=== PATIENT | male | born 1970 | race Caucasian/White ===

== ENCOUNTER 2019-05-03 20:00 | Outpatient (CLI) | payer OTHER, SELFPAY | END 2019-05-03 20:01 | disposition home or self-care (01) | LOC: SLEEP 05-04 09:21 | PROVIDERS: Family Provider Internal Medicine; PCP Internal Medicine; Visit Provider Internal Medicine | DX: G47.33 Obstructive sleep apnea (adult) (pediatric) (principal) | CPT/HCPCS: 95810 ==

== ENCOUNTER 2019-06-06 20:00 | Outpatient (CLI) | payer OTHER, SELFPAY | END 2019-06-06 20:01 | disposition home or self-care (01) | LOC: SLEEP 06-07 10:00 | PROVIDERS: Family Provider Internal Medicine; PCP Internal Medicine; Visit Provider Internal Medicine | DX: I48.91 Unspecified atrial fibrillation (principal) | CPT/HCPCS: 95810; 95811 ==

== ENCOUNTER 2019-08-31 07:05 | Day surgery (SDC) | payer OTHER, SELFPAY ==
[2019-08-29 11:06] VITALS: BMI 30.6
[2019-08-31 07:23] VITALS: BP 123/72; PULSE 967; RESP 20; TEMP 36.3; O2SAT 97
[2019-08-31] MEDS: sodium chloride 0.9% 1,000 ML 30 ML IV (07:32)
[2019-08-31 07:39] LABS: Glucose Point of Care 116 mg/dL (70-110)
--- NOTE | 2019-08-31 07:54 | W.PM.OPSFHP ---
Same Day Surgery H&P Indication for Procedure/HPI DATE OF PROCEDURE: August 31, 2019 CHIEF COMPLAINT/INDICATIONFOR SURGICAL PROCEDURE: History of colon polyps PREOP DIAGNOSIS: Colon polyps PLANNED PROCEDRUE: Operation Date: 08/31/19 08:40 Proposed Procedures p Colonoscopy 10735 Z86.010(Not Applicable) - Eder Nicole MD Medications/Allergies* Home Medications Medication Instructions Recorded Confirmed Type aspirin 81 mg tablet,delayed 81 mg PO DAILY 06/30/19 08/29/19 History release glipizide 5 mg tablet 5 mg PO BID 06/30/19 08/29/19 History metformin 1,000 mg tablet 1,000 mg PO BID 06/30/19 08/31/19 History metoprolol tartrate 50 mg tablet 25 mg PO BID tab 06/30/19 08/31/19 History coenzyme Q10 60 mg PO DAILY 08/29/19 08/29/19 History testosterone [AndroGel] 1 packet TRANSDERMAL DAILY 08/29/19 08/29/19 History Allergies/Adverse Reactions Allergy/AdvReac Type Severity Reaction Status Date / Time atorvastatin [From Lipitor] AdvReac ADR-Cramping Verified 08/29/19 10:52 of the Muscles gemfibrozil [From Lopid] AdvReac ADR-Cramping Verified 08/29/19 10:52 of the Muscles Current Medications: Generic Name Dose Route Start Last Admin Trade Name Freq PRN Reason Stop Dose Admin Sodium Chloride 1,000 mls @ 30 mls/hr 08/31/19 07:30 08/31/19 07:32 Sodium Chloride 0.9% IV 09/01/19 07:29 30 mls/hr .Q24H AMELIA Administration Pertinent History/Comorbid Conditions* Medical History (Updated 07/12/19 @ 07:12 by Eder Nicole MD) Anxiety Atrial flutter by electrocardiography Diabetes History of colon polyps Hyperlipidemia Sleep apnea Surgical History (Updated 07/11/19 @ 13:30 by Eder Nicole MD) H/O knee surgery History of ankle surgery History of colonoscopy with polypectomy Family History (Updated 06/30/19 @ 09:27 by Deanna Peres RN) Family history of CABG Diabetes CAD (coronary artery disease) Heart disease Cancer Social History Smoking and tobacco status: former smoker Alcohol intake: never Pertinent Exam Findings alert, oriented x 3 and procedure specific exam findings Recommendations Surgery/Procedure today Coding Level of Care Code Acute Wildlife Rehabilitator for Antione Morgan
--- NOTE | 2019-08-31 08:06 | ANES.PREANE2 ---
Pre-Anesthetic Assessment Pre-Anesthetic Assessment: Height/Weight: Height 1.91 m Weight 111.13 kg Temp Pulse Resp BP Pulse Ox 97.3 F L 967 H 20 H 123/72 97 08/31/19 07:23 08/31/19 07:23 08/31/19 07:23 08/31/19 07:23 08/31/19 07:23 Preop Diagnosis: Colon polyps Proposed Procedure: Operation Date: 08/31/19 08:40 Proposed Procedures p Colonoscopy 51497 Z86.010(Not Applicable) - Eder Nicole MD Was Beta Lowell taken within 24 hours: Yes Last intake: Intake Last Liquid Date 08/30/19 Last Liquid Time 23:30 Last Solid Date 08/29/19 Last Solid Time 23:59 Social: Social History: Alcohol and No tobacco Packs per day: quit Exam: Pre-Anes Outpt Exam: alert, oriented x 3, clear to auscultation bilaterally and regular rate & rhythm Airway: Submandibular: WNL Cervical ROM: WNL MP: 2 History/ROS: No significant history except as noted CV/HEM: Comments: A. flutter Metabolic: Metabolic: DM Neuropsych: Neuropsych: Anxiety Anesthetic Plan: ASA status: 2 Anesthesia: Anesthesia Evaluation and MAC Risk of > 500 ml blood loss (7ml/kg in children): No Meds/Allergies Current Medications: Current Medications Generic Name Dose Route Start Last Admin Trade Name Freq PRN Reason Stop Dose Admin Sodium Chloride 1,000 mls @ 30 ml s/hr 08/31/19 07:30 08/31/19 07:32 Sodium Chloride 0.9% IV 09/01/19 07:29 30 mls/hr .Q24H AMELIA Administration PFSH Anesthesia PFSH: Social History Smoking and tobacco status: former smoker Alcohol intake: never Data Anesthesia Other Labs: Laboratory Results - last 48 hr 08/31/19 07:35 POC Glucose 116 Cardiac Studies: No Data to Display
[2019-08-31 09:59] VITALS: BP 89/55; PULSE 64; RESP 16; TEMP 36.1; O2SAT 96
[2019-08-31 10:15] VITALS: BP 131/76; PULSE 66; RESP 20; O2SAT 98
== END 2019-08-31 10:36 | disposition home or self-care (01) ==
PROVIDERS: Family Provider Internal Medicine; PCP Internal Medicine; Visit Provider Surgery
PROC: 0DJD8ZZ Inspection of Lower Intestinal Tract, Via Natural or Artificial Opening Endoscopic (ICD-10-PCS; CPT 45378; principal; 2019-08-31 08:35)
DX: D12.2 Benign neoplasm of ascending colon (principal); D12.5 Benign neoplasm of sigmoid colon; K57.30 Diverticulosis of large intestine without perforation or abscess without bleeding; Z86.010 Personal history of colon polyps; E11.9 Type 2 diabetes mellitus without complications; E78.5 Hyperlipidemia, unspecified; G47.30 Sleep apnea, unspecified; Z82.49 Family history of ischemic heart disease and other diseases of the circulatory system
CPT/HCPCS: 45380; 12345; 36416; 82962; 88305; J2001; J2704; J7030

== ENCOUNTER 2020-05-17 19:49 | Observation (INO) | payer OTHER, SELFPAY ==
[2020-05-17] VITALS (9 sets, daily range): BP systolic 113–159; BP diastolic 65–100; PULSE 84–110; RESP 16–18; TEMP 36.4; O2SAT 95–98; BMI 31.2
--- NOTE | 2020-05-17 20:10 | XRR_ITS ---
PROCEDURE INFORMATION: Exam: XR Chest, 1 View Exam date and time: 05/17/2020 8:13 PM Age: 50 years old Clinical indication: Tachypnea; Patient HX: Tachycardic. Covid +; Additional info: Covid + TECHNIQUE: Imaging protocol: XR of the chest Views: 1 view. COMPARISON: CR Chest 1 [place] [id number] 04/07/2019 5:42 PM FINDINGS: Lungs: Unremarkable. No consolidation. Pleural space: Unremarkable. No pleural effusion. No pneumothorax. Heart/Mediastinum: Unremarkable. No cardiomegaly. Bones/joints: Unremarkable. XR/XR chest 1V portable [id number] IMPRESSION: No acute findings.
--- NOTE | 2020-05-17 20:11 | ECG_ITS ---
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
[2020-05-17 20:23] LABS: Basophils % 0.9 %; Eosinophils # 0.1 10^3/uL (0.0-0.8); Eosinophils % 2.7 %; Hematocrit 47.3 % (42.0-52.0); Hemoglobin 15.2 g/dL (11.7-16.6); Lymphocytes # 2.1 10^3/uL (0.8-4.8); Lymphocytes % 46.8 %; Mean Corpuscular HGB Conc 32.1 g/dL (30.0-36.0); Mean Corpuscular Hemoglobin 29.3 pg (28.0-34.0); Mean Corpuscular Volume 91.1 fL (80-94); Mean Platelet Volume 11.1 fL (7.4-10.4); Monocytes # 0.5 10^3/uL (0.2-0.9); Monocytes % 10.9 %; Neutrophils # 1.74 10^3/uL (1.8-7.7); Neutrophils % 38.7 %; Nucleated Red Blood Cells % 0 %; Platelet Count 231 10^3/cmm (130-400); Red Blood Count 5.19 10^6/uL (4.1-5.3); Red Cell Distribution Width 12.5 % (12.1-15.1); White Blood Count 4.5 10^3/uL (4.0-10.0)
[2020-05-17 20:44] LABS: Alanine Aminotransferase 48 U/L (0-41); Albumin Level 4.8 g/dL (3.5-5.2); Alkaline Phosphatase 65 IU/L (40-130); Anion Gap 15.9 (5-19); Aspartate Amino Transferase 27 U/L (0-40); Blood Urea Nitrogen 15 mg/dL (6-20); Calcium 9.6 mg/dL (8.5-10.5); Carbon Dioxide 29 mmol/L (22-29); Chloride 100 mmol/L (98-107); Glomerular Filtration Rate 70.3 mL/min (90-130); Glucose 134 mg/dL (65-115); Osmolality Calculated 295 mOsm/kg (285-295); Potassium 3.9 mmol/L (3.5-5.1); Sodium 141 mmol/L (136-145); Total Bilirubin 0.5 mg/dL (0.15-1.2); Total Protein 7.8 g/dL (6.6-8.7)
[2020-05-17 20:46] LABS: Troponin(5th) Baseline 6 ng/L (0-15)
[2020-05-17 21:03] LABS: Influenza A by IFA Negative (Negative); Influenza B by IFA Negative (Negative)
[2020-05-17 21:04] LABS: D Dimer <= 0.27 ug/mIFEU (0-0.59)
[2020-05-17 21:17] LABS: Thyroid Stimulating Hormone 4.97 uIU/mL (0.27-4.20)
--- NOTE | 2020-05-17 22:11 | ECG_ITS ---
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
--- NOTE | 2020-05-17 22:48 | P.HP_ITS ---
Providers/Chief Complaint Primary Care Provider: Jhoana Dunn MD Chief Complaint: covid+/afib History of Present Illness Scar Cardoso is a 50 year old male who was seen by Dr. Raymond for preop clearance before plantar fasciitis treatment he was started on aspirin because of his Bal vas score of 1 for paroxysmal atrial flutter, his metoprolol dose was increased to 50 mg in the morning and 25 mg in the night, he was also started on magnesium supplementation presented today with chief complaint of palpitations. Patient is stating that he was tested positive for COVID-19 pneumonia today. Patient is stating that he got sick on Wednesday, he was hurting mainly in his muscle and joints, he started using ivermectin topically which see med to improved his symptoms from 24 hours, today when he went to bathroom he started feeling palpitations, he also started having diarrhea today because of these concerns she decided to come to the hospital for further evaluation. He is denying orthopnea PND fever nausea, vomiting. Diagnostics in the ER revealed normal hemodynamics, abnormal TSH, negative D- dimer, atrial fibrillation RVR currently on Cardizem drip at 12 mg/h heart rate fluctuating between 80-1 10 We will check magnesium level Patient refused monoclonal antibodies which were recommended to him Review of Systems Const: Reports: body aches, fatigue and malaise; Denies: fever(s) or chills Eyes: Denies: change in vision ENMT: Denies: throat pain Card: Denies: chest pain Resp: Denies: dyspnea GI: Reports: diarrhea : Reports: flank pain Musc: Denies: neck pain Skin/Breast: Denies: rash Neuro: Denies: headache(s) Psych: Denies: anxiety Endo: Denies: polyuria Miles/Lymph: Denies: easy bruising All/Imm: Denies: urticaria Medications/Allergies Home Medications Medication Instructions Recorded Confirmed Last Taken Type glipizide 5 mg tablet 5 mg PO BID@0800,199906/30/19 05/17/20 05/17/20 History metformin 1,000 mg tablet 1,000 mg PO BID@0800,199906/30/19 05/17/20 05/17/20 History coenzyme Q10 60 mg PO DAILY@0800 08/29/19 05/17/20 05/17/20 History rosuvastatin 0.5 tab PO DAILY@0800 02/08/20 05/17/20 05/17/20 History aspirin [Aspir-81] 81 mg PO DAILY@0800 05/17/20 05/17/20 05/17/20 History metoprolol tartrate 25 mg PO BID@0800,199905/17/20 05/17/20 05/17/20 History Allergies Allergy/AdvReac Type Severity Reaction Status Date / Time atorvastatin [From Lipitor] AdvReac ADR-Cramping Verified 02/08/20 09:02 of the Muscles gemfibrozil [From Lopid] AdvReac ADR-Cramping Verified 02/08/20 09:02 of the Muscles PFSH Acute PFSH: Medical History Anxiety Atrial flutter by electrocardiography Diabetes History of colon polyps Hyperlipidemia Plantar fasciitis Sleep apnea CPAP settings 8 to 14 cm Surgical History H/O knee surgery History of ankle surgery History of colonoscopy with polypectomy (08/31/19) sigmoid , ascending colon polyps, tubular adenoma with low-grade dysplasia Family History Other CAD (coronary artery disease) Cancer Diabetes Family history of CABG Heart disease Social History Smoking and tobacco status: former smoker Alcohol intake: never Vitals/I&O/Wt Last Vital Signs Temp 97.6 F 05/17/20 20:07 Pulse 99 05/17/20 21:34 Resp 18 05/17/20 21:34 BP 140/79 05/17/20 21:34 Pulse Ox 96 05/17/20 21:34 05/17/20 05/17/20 05/17/20 06:59 14:59 22:59 Intake Total 0.75 / 0.75 Balance 0.75 / 0.75 Weight last 48 hrs Weight 113.398 kg Physical Exam Narrative: EXAM NARRATIVE: Middle-age male who is sitting comfortably in his bed saturating well on room air S1, S2 variable, no murmur appreciated Patient is symptom-free, does not look dehydrated or fluid overloaded Skin tattoos noted Abdomen soft nontender bowel sounds present Lower extremity no edema gangrene ulcer Neurologically nonfocal exam GCS 15 alert oriented x3 EOMI, PERRLA Bilateral breath sounds without adventitial rhonchi or crackles No skin edema gangrene ulcer Saturating well on room air no acute respite distress Data : 05/17/20 20:06 05/17/20 20:06 A&P Assessment and plan (1) Paroxysmal atrial fibrillation with rapid ventricular response: Status: Acute (2) Pneumonia due to COVID-19 virus: Status: Acute Additional A&P Information Paroxysmal A. fib RVR [id number] 1 for diabetes Patient is willing to start Eliquis, we had discussion regarding recommendations and when Eliquis is indicated, he does not want to take a chance and wants to start his Eliquis which he was taking previously as well Abnormal TSH noted, would request free T4 level, check magnesium level Negative D-dimer PE less likely at this point, influenza antigen negative Currently on Cardizem drip at 12 mg/h I would increase his metoprolol to 50 mg twice a day at home he was taking 25 mg twice a day, patient is stating that his heart rate dropped to 50s after taking 50 mg of metoprolol in the past, will m onitor on telemetry floor COVID-19 pneumonia Patient actively has no symptoms he is saturating well, patient refused monoclonal antibodies which were recommended to him in the ER, I would hold off on Decadron and remdesivir for now Patient is very skeptical regarding COVID-19 recommended medications No acute respiratory distress X-ray is not showing any acute pathology Sleep apnea: Continue CPAP overnight Full code Cardiac diet DVT prophylaxis not needed, I would start Eliquis Attestations Medical Necessity Statement*: I do suspect patient will be discharged in less than 48 hours continued Cardizem drip for A. fib RVR saturating well for COVID- 19 pneumonia Time Spent in Patient Care: (>than 50% of time spent in counselling and/or direct pt care on unit) . 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
--- NOTE | 2020-05-17 23:03 | PC.NURSE ---
EKG done at 2255 and shown to ER doctor
[2020-05-17 23:06] LABS: Troponin 5 2HR Delta 0 ABS# (0-10)
[2020-05-17 23:31] LABS: Free T4 Free Thyroxine 1.45 ng/dL (0.82-1.77)
[2020-05-17] MEDS: metoprolol tartrate 25 mg Tablet PO (23:39)
--- NOTE | 2020-05-17 23:47 | W.ED.ARRPALP ---
HPI - Arrhythmia/Palpitations General: Chief Complaint: Arrhythmia/Palpitations Stated Complaint: covid+/afib Time Seen by Provider: 05/17/20 20:07 Source: patient Mode of arrival: ambulatory Limitations: no limitations History of Present Illness: HPI narrative: Patient is a 50-year-old male with a prior history of atrial fibrillation who is currently taking aspirin and metoprolol for this. He started feeling unwell 5 days ago and he got tested for Covid 3 days ago. His test results came back today and he tested positive for Covid 19. He was ill on the first 2 days with severe body aches, chills but no fever, however his symptoms have markedly improved. Today he went to use the restroom and when he sat down he felt palpitations and his heart racing. Because of this he is here to be evaluated. He feels much better on the Covid front but he is concerned about his heart. complaint: rapid heart beat, heart racing and palpitations Onset (ago): hour(s) (1) Duration: constant Severity: moderate Context: other (occured while using the rest room) Arrhythmia history: atrial fibrillation Associated symptoms: Deny anxiety, cough, diaphoresis, muscle cramps, nausea, paresthesias, pre-syncope, sense of impending doom, short of breath, syncope or vomiting Treatments prior to arrival: beta-ramona Review of Systems General: Reports: 10 or more systems reviewed and unremarkable except in HPI and below Const: Denies: diaphoresis Eyes: Denies: change in vision or blurry vision ENMT: Denies: throat pain, enlarged tonsils, odynophagia, hoarseness, mouth pain or swelling of lips/tongue Card: Denies: syncope or pre-syncope Resp: Denies: dyspnea, productive cough or non-productive cough GI: Denies: nausea or vomiting : Denies: flank pain, dysuria, urinary frequency, urinary urgency or urinary hesitancy Musc: Denies: muscle cramps Skin/Breast: Denies: rash, pruritus or erythema Neuro: Denies: headache(s), numbness in extremities or weakness in extremities Psych: Denies: anxiety Endo: Denies: polyuria, polydipsia or tired all the time [facility] ED PFSH: Medical History Anxiety Atrial flutter by electrocardiography Diabetes History of colon polyps Hyperlipidemia Plantar fasciitis Sleep apnea CPAP settings 8 to 14 cm Surgical History H/O knee surgery History of ankle surgery History of colonoscopy with polypectomy (08/31/19) sigmoid , ascending colon polyps, tubular adenoma with low-grade dysplasia [place] History [place]Reviewed 05/17/20 @ 23:53 [place] [facility] [place] Other CAD (coronary artery disease) Cancer Diabetes Family history of CABG Heart disease Social History (Reviewed 05/17/20 @ 23:53 [place] [facility] [place] Smoking and tobacco status: former smoker Alcohol intake: never Physical Exam Const: COMMON NORMALS: no acute distress, average body habitus, patient oriented x3, no limitations, healthy appearing, alert and well nourished HENMT: COMMON NORMALS: normocephalic, atraumatic and moist oral mucous membranes HEAD & SCALP: normocephalic and atraumatic Neck/C-Spine: COMMON NORMALS: no meningeal signs and no JVD Chest: COMMONS NORMALS: normal inspection of the chest and normal palpation of entire chest wall Resp: COMMON NORMALS: normal respiratory effort, No retractions, No use of accessory muscles, clear to auscultation bilaterally and percussion normal AUSCULTATION: clear to auscultation bilaterally PERCUSSION: percussion normal Cardio: COMMON NORMALS: no JVD, S1 normal heart sound present, S2 normal heart sound present, No gallops present (Cardio), No clicks present (Cardio), No murmurs present (Cardio), No rub (Cardio) and Peripheral pulses 2+ throughout RATE: tachycardic RHYTHM: abnormal rhythm irregularly irregular HEART SOUNDS: S1 normal heart sound present and S2 normal heart sound present PERIPHERAL PULSES: Peripheral pulses 2+ throughout GI: COMMON NORMALS: Normal to inspection, nondistended, normoactive bowel sounds present, Soft to palpation, non-tender, No hepatosplenomegaly present, no masses and no bruits PALPATION: Yes Soft to palpation and Yes No hepatosplenomegaly present Extremity: COMMON NORMALS: normal to inspection, full ROM, capillary refill normal, no calf tenderness and no pedal edema Neuro: COMMON NORMALS: patient oriented x3 SENSORIUM/ORIENTATION: Yes alert MENINGEAL SIGNS: Yes no meningeal signs Skin: COMMON NORMALS: no rashes or lesions noted, no wounds, turgor normal, no jaundice, no petechiae and no mottling GENERAL SKIN EXAM: no rashes or lesions noted and turgor normal Course Consultations: Consultation #1: Discussed the patient with Dr., Hospitalist and he kindly accepted the patient to his service. Time: 22:41 Vital Signs: Vital signs: Vital Signs Temperature 97.6 F 05/17/20 20:07 Pulse Rate 84 05/17/20 23:36 Respiratory Rate 18 05/17/20 23:36 Blood Pressure 122/71 05/17/20 23:36 Pulse Oximetry 96 05/17/20 23:36 MDM - Arrhythmia/Palpitations MDM Narrative: Medical decision making narrative: 50-year-old male with a prior history of A. fib who presents to the emergency department with palpitations and sensation that his heart was racing. In the emergency department he was in A. fib with RVR and required intravenous calcium channel blockers for rate control. However the push doses did not work that he needed to be put on a diltiazem drip. He has been feeling unwell for about 5 days and got tested for COVID-19 about 3 days ago. His test results came up today and he has COVID-19. He denies any body aches, cough, shortness of breath today. He is only concerned about his heart. I discussed the monoclonal antibody infusion with him as he meets the criteria, however he declined the medication as he says that he feels much better from the COVID stand point. He is requiring a continuous infusion of diltiazem and so is admitted to the [facility] for evaluation and management. Medical Records: Attestation: I reviewed the patient's medical records. Lab Data: Attestation: I reviewed the patient's lab results. Labs: Lab Results 05/17/20 05/17/20 05/17/20 Range/Units 20:06 20:06 20:06 WBC 4.5 (4.0-10.0) 10^3/ uL RBC 5.19 (4.1-5.3) 10^6/u L Hgb 15.2 (11.7-16.6) g/dL Hct 47.3 (42.0-52.0) % MCV 91.1 (80-94) fL MCH 29.3 (28.0-34.0) pg MCHC 32.1 (30.0-36.0) g/dL RDW 12.5 (12.1-15.1) % Plt Count 231 (130-400) 10^3/c mm MPV 11.1 H (7.4-10.4) fL Neut % (Auto) 38.7 % Lymph % (Auto) 46.8 % Converse % (Auto) 10.9 % Eos % (Auto) 2.7 % Baso % (Auto) 0.9 % Neut # (Auto) 1.74 L (1.8-7.7) 10^3/u L Lymph # (Auto) 2.1 (0.8-4.8) 10^3/u L Converse # (Auto) 0.5 (0.2-0.9) 10^3/u L Eos # (Auto) 0.1 (0.0-0.8) 10^3/u L Baso # (Auto) 0.0 (0.0-0.1) 10^3/u L Nucleated RBC % (a uto) 0 % Nucleated RBCs # 0.0 /100WBC D-Dimer <= 0.27 (0-0.59) ug/mIFE U Sodium 141 (136-145) mmol/L Potassium 3.9 (3.5-5.1) mmol/L Chloride 100 (98-107) mmol/L Carbon Dioxide 29 (22-29) mmol/L Anion Gap 15.9 (5-19) BUN 15 (6-20) mg/dL Creatinine 1.1 (0.7-1.2) mg/dL GFR Calculation 70.3 L (90-130) mL/min Glucose 134 H (65-115) mg/dL Calculated Osmolal ity 295 (285-295) mOsm/k g Calcium 9.6 (8.5-10.5) mg/dL Total Bilirubin 0.5 (0.15-1.2) mg/dL AST 27 (0-40) U/L ALT 48 H (0-41) U/L Alkaline Phosphata se 65 (40-130) IU/L Troponin T Baselin e (0-15) ng/L Troponin T 120 Min praful (0-15) ng/L Delta Troponin T (0-10) ABS# Total Protein 7.8 (6.6-8.7) g/dL Albumin 4.8 (3.5-5.2) g/dL Globulin 3.0 (1.3-4.6) g/dL TSH (0.27-4.20) uIU/ mL Free T4 (0.82-1.77) ng/d L Influenza Type A A g (Negative) Influenza Type B A g (Negative) 05/17/20 05/17/20 05/17/20 Range/Units 20:06 20:06 20:06 WBC (4.0-10.0) 10^3/ uL RBC (4.1-5.3) 10^6/u L Hgb (11.7-16.6) g/dL Hct (42.0-52.0) % MCV (80-94) fL MCH (28.0-34.0) pg MCHC (30.0-36.0) g/dL RDW (12.1-15.1) % Plt Count (130-400) 10^3/c mm MPV (7.4-10.4) fL Neut % (Auto) % Lymph % (Auto) % Converse % (Auto) % Eos % (Auto) % Baso % (Auto) % Neut # (Auto) (1.8-7.7) 10^3/u L Lymph # (Auto) (0.8-4.8) 10^3/u L Converse # (Auto) (0.2-0.9) 10^3/u L Eos # (Auto) (0.0-0.8) 10^3/u L Baso # (Auto) (0.0-0.1) 10^3/u L Nucleated RBC % (a uto) % Nucleated RBCs # /100WBC D-Dimer (0-0.59) ug/mIFE U Sodium (136-145) mmol/L Potassium (3.5-5.1) mmol/L Chloride (98-107) mmol/L Carbon Dioxide (22-29) mmol/L Anion Gap (5-19) BUN (6-20) mg/dL Creatinine (0.7-1.2) mg/dL GFR Calculation (90-130) mL/min Glucose (65-115) mg/dL Calculated Osmolal ity (285-295) mOsm/k g Calcium (8.5-10.5) mg/dL Total Bilirubin (0.15-1.2) mg/dL AST (0-40) U/L ALT (0-41) U/L Alkaline Phosphata se (40-130) IU/L Troponin T Baselin e 6 (0-15) ng/L Troponin T 120 Min praful (0-15) ng/L Delta Troponin T (0-10) ABS# Total Protein (6.6-8.7) g/dL Albumin (3.5-5.2) g/dL Globulin (1.3-4.6) g/dL TSH 4.97 H (0.27-4.20) uIU/ mL Free T4 1.45 (0.82-1.77) ng/d L Influenza Type A A g (Negative) Influenza Type B A g (Negative) 05/17/20 05/17/20 Range/Units 20:32 22:33 WBC (4.0-10.0) 10^3/ uL RBC (4.1-5.3) 10^6/u L Hgb (11.7-16.6) g/dL Hct (42.0-52.0) % MCV (80-94) fL MCH (28.0-34.0) pg MCHC (30.0-36.0) g/dL RDW (12.1-15.1) % Plt Count (130-400) 10^3/c mm MPV (7.4-10.4) fL Neut % (Auto) % Lymph % (Auto) % Converse % (Auto) % Eos % (Auto) % Baso % (Auto) % Neut # (Auto) (1.8-7.7) 10^3/u L Lymph # (Auto) (0.8-4.8) 10^3/u L Converse # (Auto) (0.2-0.9) 10^3/u L Eos # (Auto) (0.0-0.8) 10^3/u L Baso # (Auto) (0.0-0.1) 10^3/u L Nucleated RBC % (a uto) % Nucleated RBCs # /100WBC D-Dimer (0-0.59) ug/mIFE U Sodium (136-145) mmol/L Potassium (3.5-5.1) mmol/L Chloride (98-107) mmol/L Carbon Dioxide (22-29) mmol/L Anion Gap (5-19) BUN (6-20) mg/dL Creatinine (0.7-1.2) mg/dL GFR Calculation (90-130) mL/min Glucose (65-115) mg/dL Calculated Osmolal ity (285-295) mOsm/k g Calcium (8.5-10.5) mg/dL Total Bilirubin (0.15-1.2) mg/dL AST (0-40) U/L ALT (0-41) U/L Alkaline Phosphata se (40-130) IU/L Troponin T Baselin e (0-15) ng/L Troponin T 120 Min praful 6.00 (0-15) ng/L Delta Troponin T 0 (0-10) ABS# Total Protein (6.6-8.7) g/dL Albumin (3.5-5.2) g/dL Globulin (1.3-4.6) g/dL TSH (0.27-4.20) uIU/ mL Free T4 (0.82-1.77) ng/d L Influenza Type A A g Negative (Negative) Influenza Type B A g Negative (Negative) Imaging Data^: CXR: Attestation: I personally reviewed and interpreted this imaging study as follows: Radiologist's impression: [address] [address] XRay Report Signed Patient: Scar Cardoso #: [id number] : 1970Acct#:[id number] Age/Sex: 50 / MADM Date: 05/17/20 Loc: ERRoom/Bed: Attending Dr: Ordering Provider/Ordering MD: Poly Byrd Date of Service: 05/17/20 Procedure(s): XR chest 1V portable [id number] Accession Number(s): [id number] Report Number: [id number] PROCEDURE INFORMATION: Exam: XR Chest, 1 View Exam date and time: 05/17/2020 8:13 PM Age: 50 years old Clinical indication: Tachypnea; Patient HX: Tachycardic. Covid +; Additional info: Covid + TECHNIQUE: Imaging protocol: XR of the chest Views: 1 view. COMPARISON: CR Chest 1 [place] [id number] 04/07/2019 5:42 PM FINDINGS: Lungs: Unremarkable. No consolidation. Pleural space: Unremarkable. No pleural effusion. No pneumothorax. Heart/Mediastinum: Unremarkable. No cardiomegaly. Bones/joints: Unremarkable. XR/XR chest 1V portable [id number] IMPRESSION: No acute findings. Dictated By:Aurelio Rocha MD Signed By:Aurelio Rocha MDSigned Date/Time:05/17/202043 DD/ 42 EKG Data^: EKG 1: Attestation: I personally reviewed and interpreted this EKG as follows: EKG interpretation date: 05/17/20 EKG interpretation time: 20:01 Prior EKG tracings: not available for review Interpretation: afib with RVR HR 127 BPM Q wave in II, III, aVF and V5, V6. Other EKG comments: Chest X-Ray 05/17/20 20:10 IMPRESSION: No acute findings. EKG 2: Attestation: I personally reviewed and interpreted this EKG as follows: EKG interpretation date: 05/17/20 EKG interpretation time: 20:30 Prior EKG tracings: available for review Interpretation: afib HR 96 BPM Q wave II, III, aVF and V5, V6. This is post IV diltiazem 20 mg push Other EKG comments: Chest X-Ray 05/17/20 20:10 IMPRESSION: No acute findings. EKG 3: Attestation: I personally reviewed and interpreted this EKG as follows: EKG interpretation date: 05/17/20 EKG interpretation time: 22:53 Prior EKG tracings: available for review Interpretation: afib with rvr, HR 114 BPM Q wave in II, III, aVF and V5, V6 Other EKG comments: Chest X-Ray 05/17/20 20:10 IMPRESSION: No acute findings. Discharge Plan Discharge Patient Disposition: Admitted As Inpatient Admit Provider: Mansoor Montalvo Clinical Impression: Atrial fibrillation, COVID-19 Condition: Stable Coding Level of Care Code ED Fundraising Officer for Antione Morgan
--- NOTE | 2020-05-17 23:49 | PC.NURSE ---
report given to cristopher schneider. pt cannot come to floor yet d/t nurse not being there yet.
[2020-05-18] VITALS (28 sets, daily range): BP systolic 97–141; BP diastolic 45–81; PULSE 57–92; RESP 9–19; TEMP 36.6; O2SAT 92–98; BMI 31.5
--- NOTE | 2020-05-18 01:40 | PC.NURSE ---
PATIENT ARRIVED Patient arrived on unit from ED at 0106. Patient alert and oriented x 4 and ambulated steadily to his bed. Cardizem drip at 12 mg/hour. Patient in sinus rhythm with heart rate in the high 60s to low 70s. Patient explains his situation and only complaint is that he has had a hard time sleeping. Dr. Montalvo notified via telephone and have one time order for 10 mg PO zolpidem.
[2020-05-18] MEDS: zolpidem 5 mg Tablet 10 MG PO (01:50)
[2020-05-18 02:53] LABS: Anion Gap 16.2 (5-19); Blood Urea Nitrogen 17 mg/dL (6-20); Calcium 8.9 mg/dL (8.5-10.5); Carbon Dioxide 25 mmol/L (22-29); Chloride 101 mmol/L (98-107); Glomerular Filtration Rate 70.3 mL/min (90-130); Glucose 183 mg/dL (65-115); Osmolality Calculated 292 mOsm/kg (285-295); Potassium 4.2 mmol/L (3.5-5.1); Sodium 138 mmol/L (136-145)
[2020-05-18 02:55] LABS: Troponin 5 6HR 6.41 ng/L (0-15); Troponin 5 6HR Delta 0.41 ng/L (0-12)
--- NOTE | 2020-05-18 06:02 | PC.NURSE ---
SHIFT SUMMARY Patient alert and oriented x 4. Patient has been in sinus rhythm this shift and on cardizem drip. Cardizem drip at 5 mg/hour. Patient has ambulated independently to the bathroom once this shift with nurses help with IV pole and had 1 void. Patient has no complaints or needs at this time.
[2020-05-18] MEDS: apixaban 5 mg Tablet PO ×2 (08:19→17:24)
[2020-05-18] MEDS: metoprolol tartrate 50 mg Tablet PO ×2 (08:20→21:11)
[2020-05-18] MEDS: atorvastatin 40 mg Tablet 20 MG PO (11:07)
[2020-05-18 17:15] LABS: Creatine Phosphokinase 84 U/L (39-308)
--- NOTE | 2020-05-18 19:43 | PM.PN ---
Subjective Subjective: Interval history: He states he is currently doing well. He denies any shortness of breath, any cough. He has no headache, no nausea vomiting diarrhea. No chest pain. He reports that he applied ivermectin topically to his arms 2 days after he was diagnosed with Covid. He reports episodic atrial fibrillation, with last episode over 2 years ago. We discussed regarding his thyroid function. Discussed regarding what appears to be possibly mild chronic kidney disease. He states that he has a prescription for TAMMIE inhibitor at home, but and was told to take half a tablet, but did not initiated since he states his blood pressure has been running normally. Discussed with him the strategy of renal protection including kidney disease with diabetes. Encouraged to continue blood pressure monitoring, and if blood pressure allows check safely take TAMMIE inhibitor, to do so. Discussed also possible expected rising creatinine up to 20%, but if rising further, the medication may need to be discontinued. Vitals/I&O/Wt Last Vital Signs Temp 97.9 F 05/18/20 01:06 Pulse 70 05/18/20 14:00 Resp 17 05/18/20 14:00 BP 133/78 05/18/20 14:00 Pulse Ox 96 05/18/20 14:00 05/18/20 05/18/20 05/18/20 06:59 14:59 22:59 Intake Total 576.167 / 583.184 738.75 / 738.75 436 / 1174.75 Balance 576.167 / 583.184 738.75 / 738.75 436 / 1174.75 Weight last 48 hrs Weight 114.396 kg Weight 113.398 kg Physical Exam Const: COMMON NORMALS: no acute distress and patient oriented x3 HENMT: COMMON NORMALS: oropharynx normal Neck/C-Spine: COMMON NORMALS: no JVD Resp: COMMON NORMALS: normal respiratory effort and clear to auscultation bilaterally AUSCULTATION: clear to auscultation bilaterally Cardio: COMMON NORMALS: no JVD, regular rhythm, S1 normal heart sound present, S2 normal heart sound present and No murmurs present (Cardio) RHYTHM: regular rhythm HEART SOUNDS: S1 normal heart sound present and S2 normal heart sound present GI: COMMON NORMALS: Normal to inspection, nondistended, normoactive bowel sounds present, Soft to palpation and non-tender PALPATION: Yes Soft to palpation Extremity: COMMON NORMALS: no joint enlargement and no pedal edema Neuro: COMMON NORMALS: patient oriented x3 and moves all extremities Skin: COMMON NORMALS: no rashes or lesions noted GENERAL SKIN EXAM: no rashes or lesions noted Data : 05/17/20 20:06 05/18/20 02:21 A&P Assessment and plan (1) Paroxysmal atrial fibrillation with rapid ventricular response: Converted to sinus rhythm. Discontinued Cardizem. Metoprolol increased to 50 mg twice daily. He reports previously metoprolol was increased as high as 75 mg twice daily, but at that point his heart rates became rather low. We will extend observation, he does not feel comfortable returning home tonight. Further monitor heart rates after discontinuation of Cardizem, increase of dose of metoprolol, with tentative plan for return home tomorrow if there are no further issues, and with follow-up with primary care. Eliquis Status: Acute (2) Pneumonia due to COVID-19 virus: He reports was very symptomatic for about 2 days, with severe chills, reports that he applied ivermectin topically and does state that he felt better subsequently. He has not required any oxygen here. He is overall remaining asymptomatic. He does have risk for severe illness, and we discussed with him to keep vigilant, and return for reassessment promptly in case there is any concerning symptoms. Also discussed monitoring of his oxygenation as he does have a pulse oximeter at home. Verbalized understanding, states he will be very cautious. Status: Acute Additional A&P Information Current kidney disease: Creatinine 1.1 plan discussed with him risks of diabetic nephropathy. Encouraged him if his blood pressure will tolerate to start low-dose TAMMIE inhibitor as recommended by his PCP, although not yet currently, waiting sometime after the current medication adjustments for A. fib treatment which may affect his blood pressure. Abnormal TSH: Minimally elevated TSH at 4.97. Free T4 normal. Check free T3. Discussed with him possible subclinical hypothyroidism. Possibly secondary to acute illness. This will benefit from follow-up with primary care provider which he intends to do. Diabetes Hypertension Hyperlipidemia Sleep apnea: Continue CPAP overnight Attestations Medical Necessity Statement*: Continue observation after weaning off Cardizem drip following A. fib with RVR in setting of moderate COVID-19 illness at high risk of severe disease. Coding Level of Care Code Acute Injection Molding Technician for Chg Fwd Exam Comprehensive Diagnoses Paroxysmal atrial fibrillation with rapid ventricular response I48.0 Pneumonia due to COVID-19 virus U07.1; J12.89
[2020-05-18 20:20] LABS: T3 Free 3.2 PG/ML (2.0-4.4)
[2020-05-19 04:13] VITALS: BP 154/69; PULSE 74; RESP 15; TEMP 36.8; O2SAT 94
[2020-05-19 04:20] LABS: Basophils % 0.6 %; Eosinophils # 0.1 10^3/uL (0.0-0.8); Eosinophils % 2.5 %; Hematocrit 43.1 % (42.0-52.0); Lymphocytes # 1.8 10^3/uL (0.8-4.8); Lymphocytes % 37.6 %; Mean Corpuscular HGB Conc 32.5 g/dL (30.0-36.0); Mean Corpuscular Hemoglobin 29.8 pg (28.0-34.0); Mean Corpuscular Volume 91.7 fL (80-94); Mean Platelet Volume 11.4 fL (7.4-10.4); Monocytes # 0.5 10^3/uL (0.2-0.9); Monocytes % 9.7 %; Neutrophils # 2.33 10^3/uL (1.8-7.7); Neutrophils % 49.4 %; Nucleated Red Blood Cells % 0 %; Platelet Count 211 10^3/cmm (130-400); Red Cell Distribution Width 12.7 % (12.1-15.1); White Blood Count 4.7 10^3/uL (4.0-10.0)
[2020-05-19 04:49] LABS: Alanine Aminotransferase 32 U/L (0-41); Albumin Level 4.1 g/dL (3.5-5.2); Alkaline Phosphatase 57 IU/L (40-130); Anion Gap 12.3 (5-19); Aspartate Amino Transferase 16 U/L (0-40); Blood Urea Nitrogen 15 mg/dL (6-20); C Reactive Protein 1.9 mg/L (0.0-4.9); Calcium 8.8 mg/dL (8.5-10.5); Carbon Dioxide 28 mmol/L (22-29); Chloride 101 mmol/L (98-107); Glomerular Filtration Rate 70.3 mL/min (90-130); Glucose 118 mg/dL (65-115); Osmolality Calculated 286 mOsm/kg (285-295); Potassium 4.3 mmol/L (3.5-5.1); Sodium 137 mmol/L (136-145); Total Bilirubin 0.4 mg/dL (0.15-1.2)
[2020-05-19 05:06] LABS: D Dimer <= 0.27 ug/mIFEU (0-0.59)
[2020-05-19 07:41] VITALS: BP 112/72; PULSE 70; RESP 16; TEMP 37.1; O2SAT 97
[2020-05-19 08:00] VITALS: PULSE 69
[2020-05-19] MEDS: metoprolol tartrate 50 mg Tablet PO (09:34)
[2020-05-19] MEDS: apixaban 5 mg Tablet PO (09:34)
[2020-05-19] MEDS: atorvastatin 40 mg Tablet 20 MG PO (09:38)
[2020-05-19 11:33] VITALS: BP 114/76; PULSE 76; RESP 18; TEMP 36.9; O2SAT 94
[2020-05-19 12:44] VITALS: BP 114/76; PULSE 76; RESP 18; TEMP 36.9; O2SAT 94
--- NOTE | 2020-05-19 14:17 | P.DS_ITS ---
Discharge Providers Date of Admission: 05/17/20 22:44 Date of Discharge: May 19, 2020 Attending Provider at Admission: Mansoor Montalvo MD Attending Provider at Discharge: Noé Keith Primary Care Provider: Jhoana Dunn MD Diagnoses at Discharge Discharge Diagnosis (1) Paroxysmal atrial fibrillation with rapid ventricular response: Status: Acute (2) Pneumonia due to COVID-19 virus: Status: Acute (3) Chronic kidney disease: Status: Acute (4) Abnormal TSH: Status: Acute Reason for Visit Reason for Visit: covid+/afib Hospital Course Hospital Course Pleasant 50-year-old gentlemanWith history of atrial flutter, diabetes, HLD, sleep apnea was admitted for assessment management of paroxysmal atrial fibrillation with RVR. among other conditions initially treated with Cardizem drip, subsequently converted to sinus rhythm. Metoprolol dose was increased to 50 mg twice daily which she tolerated well with heart rates remaining in the 60s-70s. With blood pressure stable. Recently diagnosed with COVID-19 pneumonia, after initial 2 days of severe chills (prior to admission, shortly after diagnosis, for which he self medicated with topical ivermectin), he otherwise remained asymptomatic. He did not require any oxygen. With resolution of atrial fibrillation with RVR he is feeling back to his usual self, and is feeling ready for discharge. Of note he was found to have minimally increased TSH, 4.97, with normal free T4 and free T3, suspected possible mild subclinical hypothyroidism, perhaps related to COVID-19 infection. Please follow-up thyroid function testing for resolution. Of note also renal function noted mildly diminished, with creatinine 1.1 which appears to be stable, and suspected possibly related to diabetic nephropathy. Please follow-up in office. He states was recently prescribed lisinopril, although says was concerned about taking due to blood pressures being normal. Discussed with him that this most likely was prescribed for renal protection with diabetes. Encouraged him to monitor his blood pressure, and if it is normal to take low-dose as prescribed for renal protective effect, although not initiated until after about a week or so due to recent adjustment of his metoprolol. He is started on Eliquis for medication stroke risk with atrial fibrillation. Due to this aspirin for now is discontinued. Asked him also to consult his doctor before self administering any additional medications. We discussed with him to watch out for warning signs, in case there is return of symptoms or worsening of his condition, as he does have risk factors for severe COVID-19 illness. He knows to seek medical attention in case there are any concerning symptoms. Physical Exam Const: COMMON NORMALS: no acute distress and patient oriented x3 OTHER: R eports he is feeling very well, and ready to return home. HENMT: COMMON NORMALS: oropharynx normal Neck/C-Spine: COMMON NORMALS: no JVD Resp: COMMON NORMALS: normal respiratory effort and clear to auscultation bilaterally AUSCULTATION: clear to auscultation bilaterally Cardio: COMMON NORMALS: no JVD, regular rhythm, S1 normal heart sound present, S2 normal heart sound present and No murmurs present (Cardio) RHYTHM: regular rhythm HEART SOUNDS: S1 normal heart sound present and S2 normal heart sound present GI: COMMON NORMALS: Normal to inspection, nondistended, normoactive bowel sounds present, Soft to palpation and non-tender PALPATION: Yes Soft to palpation Extremity: COMMON NORMALS: no joint enlargement and no pedal edema Neuro: COMMON NORMALS: patient oriented x3 and moves all extremities Skin: COMMON NORMALS: no rashes or lesions noted GENERAL SKIN EXAM: no rashes or lesions noted Discharge Data Data Completed and Pending: Completed Studies During Hospitalization Category Date Time Status XR chest 1V jenni ble [id number] Stat Exams 05/17/20 20:10 Completed Pending at discharge Category Date Time Status Complete Blood Co unt w/Auto AM LABS Lab 05/20/20 04:00 Ordered Complete Blood Co unt w/Auto AM LABS Lab 05/21/20 04:00 Ordered Comprehensive Met abolic Panel AM LA BS Lab 05/20/20 04:00 Ordered Comprehensive Met abolic Panel AM LA BS Lab 05/21/20 04:00 Ordered Labs from last 24 hours 05/19/20 05/19/20 05/19/20 04:00 04:00 04:00 WBC 4.7 RBC 4.70 Hgb 14.0 Hct 43.1 MCV 91.7 MCH 29.8 MCHC 32.5 RDW 12.7 Plt Count 211 MPV 11.4 H Neut % (Auto) 49.4 Lymph % (Auto) 37.6 Hancock % (Auto) 9.7 Eos % (Auto) 2.5 Baso % (Auto) 0.6 Neut # (Auto) 2.33 Lymph # (Auto) 1.8 Hancock # (Auto) 0.5 Eos # (Auto) 0.1 Baso # (Auto) 0.0 Nucleated RBC % (a uto) 0 Nucleated RBCs # 0.0 D-Dimer <= 0.27 Sodium 137 Potassium 4.3 Chloride 101 Carbon Dioxide 28 Anion Gap 12.3 BUN 15 Creatinine 1.1 GFR Calculation 70.3 L Glucose 118 H Calculated Osmolal ity 286 Calcium 8.8 Total Bilirubin 0.4 AST 16 ALT 32 Alkaline Phosphata se 57 Creatine Kinase C-Reactive Protein 1.9 Total Protein 9.5 H Albumin 4.1 Globulin 5.4 H Free T3 05/18/20 05/17/20 02:21 20:06 WBC RBC Hgb Hct MCV MCH MCHC RDW Plt Count MPV Neut % (Auto) Lymph % (Auto) Hancock % (Auto) Eos % (Auto) Baso % (Auto) Neut # (Auto) Lymph # (Auto) [place]ancock # (Auto) Eos # (Auto) Baso # (Auto) Nucleated RBC % (a uto) Nucleated RBCs # D-Dimer Sodium Potassium Chloride Carbon Dioxide Anion Gap BUN Creatinine GFR Calculation Glucose Calculated Osmolal ity Calcium Total Bilirubin AST ALT Alkaline Phosphata se Creatine Kinase 84 C-Reactive Protein Total Protein Albumin Globulin Free T3 3.2 Vitals: Last Vital Signs Temp 98.4 F 05/19/20 12:44 Pulse 76 05/19/20 12:44 Resp 18 05/19/20 12:44 BP 114/76 05/19/20 12:44 Pulse Ox 94 05/19/20 12:44 Discharge Plan Discharge Patient Disposition: Home Condition: Stable Prescriptions: New Eliquis 5 mg Tablet 5 mg PO BID Qty: 60 RF: 0 Continued rosuvastatin 0.5 tab PO DAILY@08 RF: 0 glipizide 5 mg tablet 5 mg PO BID@ RF: 0 metformin 1,000 mg tablet 1,000 mg PO BID@ RF: 0 coenzyme Q10 60 mg Capsule 60 mg PO DAILY@0800 RF: 0 Changed metoprolol tartrate 50 mg tablet 50 mg PO BID@ Qty: 60 RF: 0 Discontinued aspirin [Aspir-81] 81 mg Tablet,Delayed Release (Dr/Ec) 81 mg PO DAILY@0800 RF: 0 Discharge Orders: Discharge Order (Routine); Ordered 05/19/20 Ordered By: Noé Keith Referrals: Jhoana Dunn MD [Primary Care Provider] - 2 weeks (Please arrange for telehealth visit in 72 hours if possible, otherwise please follow up in 2 weeks or sooner per primary physician) Discharge Diet: Cardiac Discharge Activity: Increase activity as tolerated Patient Instructions: Diabetic Nephropathy, Metoprolol (By mouth), Apixaban (By mouth), Atrial Fibrillation (GEN), Chronic Kidney Disease (GEN), Diabetes Mellitus Type 2 in Adults (GEN), Thyroid Function Tests (GEN) Activity Restrictions/Additional Instructions: Please stay vigilant, and return to ER to seek medical attention in case you are noticing any progressive shortness of breath, any chest pain, any extreme fatig ue, fainting, any color change of fingers or lips to blue, any severe nausea vomiting or diarrhea, or any other concerning symptoms. Please be aware that Eliquis which was started to reduce risk of stroke with atrial fibrillation is a blood thinner medication, it is associated with risk of bleeding, also been compliant with aspirin. Please take care to avoid any injury that may result in bleeding. Please discuss with your primary care doctor follow-up of kidney function. Consider taking your TAMMIE inhibitor medication (blood pressure medication that provides protection to kidneys from diabetes) which was prescribed to your primary care doctor if your blood pressure allows. Please discuss with your primary care doctor reassessment of thyroid function tests with noted minimal subclinical hypothyroidism. Please do not take any medications without first discussing with your doctor. Discharge Attestations Time Spent in Discharge Care*: greater than 30 min Quality Metrics Clinical Quality Measures During this hospital stay, did patient experience: None Coding Level of Care Code Acute Street And Building Decorator for Chg Fwd Diagnoses Paroxysmal atrial fibrillation with rapid ventricular response I48.0 Pneumonia due to COVID-19 virus U07.1; J12.89 Chronic kidney disease N18.9 Abnormal TSH R79.89
[2020-05-20 11:37] LABS: Glucose Point of Care 145 mg/dL (70-110)
[2020-05-20 11:37] LABS: Glucose Point of Care 120 mg/dL (70-110)
[2020-05-20 11:37] LABS: Glucose Point of Care 129 mg/dL (70-110)
[2020-05-20 11:37] LABS: Glucose Point of Care 114 mg/dL (70-110)
[2020-05-20 11:37] LABS: Glucose Point of Care 113 mg/dL (70-110)
[2020-05-20 11:37] LABS: Glucose Point of Care 190 mg/dL (70-110)
[2020-05-20 19:28] LABS: Globulin 3.2 g/dL (1.3-4.6); Total Protein 7.3 g/dL (6.6-8.7)
== END 2020-05-19 14:30 | disposition home or self-care (01) ==
LOC: ER 20:23 → MS 2A 05-18 00:05
PROVIDERS: Nurse Practitioner Family; Admitting Provider Internal Medicine; Emergency Provider Family Medicine; PCP Family Medicine; Visit Provider Internal Medicine
DX: U07.1 COVID-19 (principal); J12.82 Pneumonia due to coronavirus disease 2019; I48.0 Paroxysmal atrial fibrillation; Z79.82 Long term (current) use of aspirin; F41.9 Anxiety disorder, unspecified; E78.5 Hyperlipidemia, unspecified; G47.30 Sleep apnea, unspecified; Z87.891 Personal history of nicotine dependence; R79.89 Other specified abnormal findings of blood chemistry; E11.22 Type 2 diabetes mellitus with diabetic chronic kidney disease; I12.9 Hypertensive chronic kidney disease with stage 1 through stage 4 chronic kidney disease, or unspecified chronic kidney disease; N18.9 Chronic kidney disease, unspecified
CPT/HCPCS: 12345; 36415; 36416; 71045; 80048; 80053; 82550; 82962; 83735; 84439; 84443; 84481; 84484; 85025; 85378; 86140; 87804; 93005; 99283; G0378; J1815; J3490

== ENCOUNTER → 2020-05-29 08:50 | Outpatient (BNVA) | payer OTHER, SELFPAY | PROVIDERS: PCP Family Medicine; Referring Provider Family Medicine; Visit Provider Specialist | DX: M25.512 Pain in left shoulder (principal) | CPT/HCPCS: 73030 ==

== ENCOUNTER → 2020-08-08 13:45 | Outpatient (BNVA) | payer OTHER, SELFPAY | PROVIDERS: PCP Family Medicine; Visit Provider Psychiatry & Neurology Neurology | DX: M25.512 Pain in left shoulder (principal); M25.521 Pain in right elbow; M54.12 Radiculopathy, cervical region; Z79.01 Long term (current) use of anticoagulants; Z87.891 Personal history of nicotine dependence | CPT/HCPCS: 95886; 95910 ==

== ENCOUNTER 2020-10-16 20:19 | Emergency (ER) | payer OTHER, SELFPAY ==
[2020-10-16 20:40] VITALS: BP 111/67; PULSE 79; RESP 17; TEMP 36.7; O2SAT 96; BMI 29.7
--- NOTE | 2020-10-16 22:36 | W.ED.GENADLT ---
HPI - General Adult General: Chief complaint: General Medical Stated complaint: Sore Throat Time Seen by Provider: 10/16/20 21:27 History of Present Illness: HPI narrative: 50-year-old male comes in with throat pain for 5 days. Patient states that he recently finished a round of antibiotics about 2 to 3 weeks ago for bronchitis and pneumonia. Patient today reports that about 3 to 5 days ago patient started having a sore throat. Patient reports difficulty with swallowing due to the pain. Patient appears well. Patient appears in mild discomfort. Review of Systems General: Reports: 10 or more systems reviewed and unremarkable except in HPI and below ENMT: Reports: throat pain PFSH ED PFSH: Medical History Anxiety Atrial fibrillation Atrial flutter by electrocardiography Diabetes History of colon polyps Hyperlipidemia Paroxysmal atrial fibrillation with rapid ventricular response Plantar fasciitis Sleep apnea CPAP settings 8 to 14 cm Surgical History H/O knee surgery History of ankle surgery History of colonoscopy with polypectomy (08/31/19) sigmoid , ascending colon polyps, tubular adenoma with low-grade dysplasia Family History Other CAD (coronary artery disease) Cancer Diabetes Family history of CABG Heart disease Social History Smoking and tobacco status: former smoker Alcohol intake: never Physical Exam Const: COMMON NORMALS: no acute distress and patient oriented x3 GENERAL APPEARANCE: cooperative HENMT: COMMON NORMALS: normocephalic, TM's normal bilaterally and Normal external nose present HEAD & SCALP: normal to inspection and normocephalic NOSE: Normal external nose present TYMPANIC MEMBRANE: TM's normal bilaterally MOUTH: Normal oral and palatal mucosa present THROAT: abnormal tonsil bilateral and posterior oropharynx abnormal erythema Eye: GENERAL EYE: appearance normal, both eyes and all related structures Neck/C-Spine: COMMON NORMALS: full ROM Lymph: LYMPHATIC: no lymphadenopathy noted Chest: COMMONS NORMALS: normal inspection of the chest Resp: COMMON NORMALS: normal respiratory effort EFFORT & INSPECTION: Yes able to speak in complete sentences Cardio: COMMON NORMALS: regular rate and regular rhythm RATE: regular rate RHYTHM: regular rhythm GI: COMMON NORMALS: non-tender Extremity: COMMON NORMALS: normal to inspection Neuro: COMMON NORMALS: patient oriented x3 and moves all extremities Psych: COMMON NORMALS: mental status grossly normal and cooperative Skin: COMMON NORMALS: no rashes or lesions noted GENERAL SKIN EXAM: no rashes or lesions noted Course Vital Signs: Vital signs: Vital Signs Temperature 98.0 F 10/16/20 20:40 Pulse Rate 79 10/16/20 20:40 Respiratory Rate 17 10/16/20 20:40 Blood Pressure 111/67 10/16/20 20:40 Pulse Oximetry 96 10/16/20 20:40 MDM - General Adult MDM Narrative: Medical decision making narrative: Patient comes in today for complaints of throat pain. On exam patient has erythema to the pharynx with tonsillar enlargement. The right tonsil appears slightly larger than the left. Patient is managing secretions well. Respirations are even lungs are clear to auscultation. Vital signs are normal. Differential diagnosis includes not limited to tonsillitis, tonsillar abscess, retropharyngeal abscess. No signs of significant airway obstruction or concern for retropharyngeal abscess. Patient appears to have tonsillitis. Recommend clindamycin 450 mg 3 times a day for the next 7 days. Patient was also given a dose of dexamethasone to help with the swelling and discomfort. Patient was encouraged to use acetaminophen and ibuprofen for pain and follow-up with primary care in 3 to 5 days. Patient reported understanding agreed to plan with need for follow-up or return to the ER indicated. Discharge Plan Discharge Patient Disposition: Home Clinical Impression: Acute bacterial tonsillitis Condition: Stable Prescriptions: New clindamycin HCl 150 mg capsule 450 mg PO Q8H 7 Days Qty: 63 RF: 0 No Action rosuvastatin 0.5 tab PO DAILY@0800 RF: 0 doxycycline monohydrate 100 mg tablet 100 mg PO BID RF: 0 glipizide 5 mg tablet 5 mg PO BID@ RF: 0 metformin 1,000 mg tablet 1,000 mg PO BID@ RF: 0 lisinopril PO RF: 0 metoprolol tartrate 25 mg tablet 25 mg PO .COMPLEX Qty: 90 RF: 2 Eliquis 5 mg tablet 5 mg PO BID Qty: 180 RF: 3 coenzyme Q10 60 mg Capsule 60 mg PO DAILY@0800 RF: 0 Discharge Orders: Discharge ED (Routine); Ordered 10/16/20 Ordered By: Jay Cardoso Referrals: Jhoana Dunn MD [Primary Care Provider] - Discharge Diet: Usual diet Discharge Activity: Increase activity as tolerated Patient Instructions: Tonsillitis (ED), Opioid Safety Activity Restrictions/Additional Instructions: Drink plenty of water. Use acetaminophen or ibuprofen to help with pain. Take antibiotic as directed. Follow-up with primary care in 3 to 5 days for recheck. Return to the emergency department for worsening symptoms or new concerns. Coding Level of Care Code ED Manager Operations Research for [employer]
[2020-10-16 22:43] VITALS: BP 131/70; PULSE 61; RESP 18; O2SAT 98
[2020-10-16] MEDS: clindamycin 150 mg Capsule 450 MG PO (23:20)
[2020-10-16] MEDS: dexamethasone 4 mg Tablet 12 MG PO (23:20)
== END 2020-10-16 23:27 | disposition home or self-care (01) ==
PROVIDERS: Emergency Provider Nurse Practitioner Family; PCP Family Medicine
DX: J03.80 Acute tonsillitis due to other specified organisms (principal); Z79.01 Long term (current) use of anticoagulants; Z79.84 Long term (current) use of oral hypoglycemic drugs; E11.9 Type 2 diabetes mellitus without complications; E78.5 Hyperlipidemia, unspecified; Z87.891 Personal history of nicotine dependence
CPT/HCPCS: 99283; J8540

== ENCOUNTER 2021-01-28 08:16 | Outpatient (CLI) | payer OTHER, SELFPAY ==
--- NOTE | 2021-01-28 08:21 | USCV_ITS ---
NOTE: Report was unsigned for reason: Order was edited. Original Signature date and time was: 01/28/21 @ 1957 Scar Cardoso Age: 51 Gender: M : 1970 Exam Date: 01/28/2021 08:52 Ordering Phys: Anahi Raymond MD ([email or web address]) Technologist: Mario Quinn Exam Location: [facility] [place] Indication: Atrial fibrillation BP: / HR: 55 Rhythm: Sinus Technical Quality: Adequate MEASUREMENTS (Male / Female) Normal Values 2D ECHO LV Diastolic Diameter PLAX 4.9 cm 4.2 - 5.9 / 3.9 - 5.3 cm LV Systolic Diameter PLAX 3.6 cm IVS Diastolic Thickness 0.8 cm 0.6 - 1.0 / 0.6 - 0.9 cm IVS Systolic Thickness 1.0 cm LVPW Diastolic Thickness 1.0 cm 0.6 - 1.0 / 0.6 - 0.9 cm LVPW Systolic Thickness 1.1 cm LVOT Diameter 2.1 cm LV Ejection Fraction 2D Teich 52.1 % LV Ejection Fraction MOD 2C 67.0 % LV Ejection Fraction 2C AL 67.3 % LA Diameter 3.2 cm LA Width 3.5 cm LA Height 4.5 cm RA Width 3.2 cm RA Height 4.5 cm DOPPLER AV Peak Velocity 111.0 cm/s LVOT Peak Velocity 74.0 cm/s AV Area Cont Eq vti 2.1 cm squared AV Area Cont Eq pk 2.4 cm squared MV Area PHT 5.0 cm squared Mitral E to A Ratio 1.3 MV E' Velocity 44.5 cm/s Mitral E to MV E' Ratio 6.6 Mitral E to LV E' Lateral Ratio 5.4 Mitral E to LV E' Septal Ratio 8.5 TR Peak Velocity 155.0 cm/s TR Peak Gradient 9.6 mmHg FINDINGS Left Ventricle Normal left ventricular size, systolic function and wall thickness, with no regional wall motion abnormalities. Left ventricular ejection fraction is estimated at 55 %. Normal diastolic function. Right Ventricle Normal right ventricular size and systolic function. RVSP could not be calculated due to incomplete tricuspid regurgitation velocity profile. Right Atrium Normal right atrial size. Left Atrium Mildly increased left atrial size. Mitral Valve Structurally normal mitral valve. No mitral valve stenosis. Trace mitral valve regurgitation. Aortic Valve Structurally normal trileaflet aortic valve. No aortic valve stenosis. No aortic valve regurgitation. Tricuspid Valve Structurally normal tricuspid valve. Trace tricuspid valve regurgitation. Pulmonic Valve Structurally normal pulmonic valve. No pulmonary valve stenosis. No pulmonary valve regurgitation. Pericardium No pericardial effusion. Aorta Normal size aortic root. Normal aortic arch. CONCLUSIONS 1. Normal left ventricular size, systolic function and wall thickness, with no regional wall motion abnormalities. Left ventricular ejection fraction is estimated at 55 %. Normal diastolic function. 2. Normal right ventricular size and systolic function. 3. No significant change when compared to previous echocardiogram dated 02/16/2019. Anahi Raymond MD (Electronically Signed) Final Date: 28 January 2021 19:57 S MTDD
== END 2021-01-28 08:17 | disposition home or self-care (01) ==
LOC: RAD 08:20
PROVIDERS: PCP Family Medicine; Visit Provider Internal Medicine Cardiovascular Disease
DX: I48.0 Paroxysmal atrial fibrillation (principal)
CPT/HCPCS: 93306

== ENCOUNTER → 2021-12-17 14:09 | Outpatient (BNVA) | payer OTHER, SELFPAY | PROVIDERS: PCP Family Medicine; Visit Provider Internal Medicine Cardiovascular Disease | DX: I48.92 Unspecified atrial flutter (principal); I48.0 Paroxysmal atrial fibrillation; Z79.01 Long term (current) use of anticoagulants; I49.1 Atrial premature depolarization; E78.5 Hyperlipidemia, unspecified; G47.30 Sleep apnea, unspecified | CPT/HCPCS: 99214 ==

== ENCOUNTER 2022-10-17 12:11 | Emergency (ER) | payer OTHER, SELFPAY ==
[2022-10-17 12:12] VITALS: BP 146/82; PULSE 65; RESP 15; TEMP 36.6; O2SAT 97; BMI 31.1
--- NOTE | 2022-10-17 12:15 | ECG_ITS ---
[facility] Test Date: 2022-10-17 Pat Name: Scar aCrdoso Department: Room: Gender: Male Tobacco Wetter: : 1970 Requested By: Parker Arias Order Number: [id number] Marta MD: Joesph Proctor M.D. Measurements Intervals [place] Rate: 72 P: 64 MT: 176 QRS: 61 QRSD: 98 T: 4 QT: 403 QTc: 441 Interpretive Statements SINUS RHYTHM WITH OCCASIONAL VENTRICULAR PREMATURE COMPLEXES INCOMPLETE RIGHT BUNDLE BRANCH BLOCK [90+ ms QRS DURATION, TERMINAL R IN V1/V2, 40+ ms S IN I/aVL/V4/V5/V6] Compared to ECG 05/17/2020 20:30:46 Ventricular premature complex(es) now present Incomplete right bundle-branch block now present Atrial fibrillation no longer present ST (T wave) deviation no longer present Electronically Signed On 10-17-2022 12:27:45 CDT by Joesph Proctor M.D. [id number]
--- NOTE | 2022-10-17 12:28 | ECG_ITS ---
[facility] Test Date: 2022-10-17 Pat Name: Scar Cardoso Department: Room: Gender: Male Wool Carder: : 1970 Requested By: Parker Arias Order Number: [id number] Marta MD: Joesph Proctor M.D. Measurements Intervals [place] Rate: 59 P: 62 ME: 175 QRS: 60 QRSD: 105 T: 9 QT: 411 QTc: 409 Interpretive Statements SINUS BRADYCARDIA Compared to ECG 10/17/2022 12:19:42 Sinus rhythm no longer present Ventricular premature complex(es) no longer present Incomplete right bundle-branch block no longer present Electronically Signed On 10-17-2022 14:12:22 CDT by Joesph Proctor M.D. [id number]
[2022-10-17 12:30] VITALS: BP 151/86; PULSE 59; RESP 16; O2SAT 97
--- NOTE | 2022-10-17 12:45 | PC.NURSE ---
PT PLACED ON CONTINUOUS NIBP, SPO2, AND CM
[2022-10-17 12:55] LABS: Basophils # 0.1 10^3/uL (0.0-0.1); Basophils % 1.5 %; Eosinophils # 0.2 10^3/uL (0.0-0.8); Eosinophils % 3.4 %; Hematocrit 44.4 % (42.0-52.0); Hemoglobin 14.5 g/dL (11.7-16.6); Lymphocytes # 2.1 10^3/uL (0.8-4.8); Lymphocytes % 33.6 %; Mean Corpuscular HGB Conc 32.7 g/dL (30.0-36.0); Mean Corpuscular Volume 91.7 fl (80-94); Mean Platelet Volume 10.8 fL (7.4-10.4); Monocytes # 0.5 10^3/uL (0.2-0.9); Monocytes % 8.8 %; Neutrophils # 3.21 10^3/uL (1.8-7.7); Neutrophils % 52.5 %; Nucleated Red Blood Cells % 0 %; Platelet Count 247 10^3/cmm (130-400); Red Blood Count 4.84 10^6/uL (4.1-5.3); Red Cell Distribution Width 12.7 % (12.1-15.1); White Blood Count 6.1 10^3/uL (4.0-10.0)
--- NOTE | 2022-10-17 12:56 | ED_ITS ---
HPI - Arrhythmia/Palpitations General: Chief Complaint: Arrhythmia/Palpitations Stated Complaint: heart fluttering and galloping (scared of afib) Time Seen by Provider: 10/17/22 12:26 Source: patient Mode of arrival: ambulatory History of Present Illness: 52-year-old male presents to the emergency room with complaints of irregular heartbeat. He is has a history of atrial fibrillation he is currently on metoprolol and apixaban. He also has a history of diabetes mellitus. He is seen electrophysiology in consultation for ablation but has held off at this point. He is not having any chest pain when he arrived he is having multiple PVCs that since resolved and he has not had any further symptoms. MD complaint: skipped beats , palpitations and irregular heart beat Onset (ago): hour(s) Arrhythmia history: atrial fibrillation Associated symptoms: Deny anxiety, cough, diaphoresis, muscle cramps, nausea, paresthesias, pre-syncope, sense of impending doom, short of breath, syncope or vomiting Treatments prior to arrival: beta-ramona Review of Systems Const: Denies: fever(s), chills or diaphoresis ENMT: Denies: throat pain, ear or mastoid pain, nasal discharge or nasal congestion Card: Reports: palpitations and irregular heart rhythm; Denies: chest pain, edema, swelling of feet/ankles, syncope or pre-syncope Resp: Denies: dyspnea, productive cough or non-productive cough GI: Denies: abdominal pain, nausea or vomiting : Denies: flank pain, dysuria, urinary frequency or urinary urgency Musc: Denies: muscle cramps Skin/Breast: Denies: rash or pruritus Psych: Denies: anxiety PFSH ED PFSH: Medical History Anxiety Atrial fibrillation Atrial flutter by electrocardiography Diabetes History of colon polyps Hyperlipidemia Paroxysmal atrial fibrillation with rapid ventricular response Plantar fasciitis Sleep apnea CPAP settings 8 to 14 cm Surgical History H/O knee surgery History of ankle surgery History of colonoscopy with polypectomy (08/31/19) sigmoid , ascending colon polyps, tubular adenoma with low-grade dysplasia Family History Other CAD (coronary artery disease) Cancer Diabetes Family history of CABG Heart disease Social History Smoking and tobacco status: former smoker (Quit 8 years ago ) Alcohol intake: never Substance/Drug Use: never Physical Exam Const: GENERAL APPEARANCE: cooperative and comfortable ORIENTATION/CONSCIOUSNESS: Yes awake, Yes oriented to person, Yes oriented to place and Yes oriented to time HENMT: COMMON NORMALS: normocephalic, atraumatic and hearing grossly normal bilaterally HEAD & SCALP: normocephalic and atraumatic Resp: COMMON NORMALS: normal respiratory effort, No retractions, No use of accessory muscles and clear to auscultation bilaterally AUSCULTATION: clear to auscultation bilaterally Cardio: COMMON NORMALS: regular rate, regular rhythm and No murmurs present (Cardio) RATE: regular rate RHYTHM: regular rhythm GI: COMMON NORMALS: Soft to palpation and No hepatosplenomegaly present AUSCULTATION: Yes normoactive bowel sounds PALPATION: Yes Soft to palpation, No Tenderness to palpation present (GI), No Guarding due to palpation present (GI) and Yes No hepatosplenomegaly present Extremity: COMMON NORMALS: normal to inspection, capillary refill normal, no clubbing, cyanosis or edema, no calf tenderness and no pedal edema Neuro: SENSORIUM/ORIENTATION: Yes oriented to person, Yes oriented to place and Yes oriented to time Skin: COMMON NORMALS: no rashes or lesions noted GENERAL SKIN EXAM: no rashes or lesions noted Course Vital Signs: Vital signs: Vital Signs Temperature 97.9 F 10/17/22 12:12 Pulse Rate 60 10/17/22 13:15 Respiratory Rate 19 H 10/17/22 13:15 Blood Pressure 126/70 10/17/22 13:15 Pulse Oximetry 97 10/17/22 13:15 Oxygen Delivery Me thod Room Air 10/17/22 12:12 MDM - Arrhythmia/Palpitations Medical Decision Making No acute changes on EKG Labs reviewed patient doing well will discharge home continue current medications follow-up with cardiology. Medical Records I reviewed the patient's medical records. Lab Data I reviewed the patient's lab results. 10/17/22 12:34 10/17/22 12:34 Laboratory Results WBC 6.1 10^3/uL (4.0-10.0) 10/17/22 12:34 RBC 4.84 10^6/uL (4.1-5.3) 10/17/22 12:34 Hgb 14.5 g/dL (11.7-16.6) 10/17/22 12:34 Hct 44.4 % (42.0-52.0) 10/17/22 12:34 MCV 91.7 fl (80-94) 10/17/22 12:34 MCH 30.0 pg (28.0-34.0) 10/17/22 12:34 MCHC 32.7 g/dL (30.0-36.0) 10/17/22 12:34 RDW 12.7 % (12.1-15.1) 10/17/22 12:34 Plt Count 247 10^3/cmm (130-400) 10/17/22 12:34 MPV 10.8 fL (7.4-10.4) H 10/17/22 12:34 Neut % (Auto) 52.5 % 10/17/22 12:34 Lymph % (Auto) 33.6 % 10/17/22 12:34 [place] % (Auto) 8.8 % 10/17/22 12:34 Eos % (Auto) 3.4 % 10/17/22 12:34 Baso % (Auto) 1.5 % 10/17/22 12:34 Neut # (Auto) 3.21 10^3/uL (1.8-7.7) 10/17/22 12:34 Lymph # (Auto) 2.1 10^3/uL (0.8-4.8) 10/17/22 12:34 [place] # (Auto) 0.5 10^3/uL (0.2-0.9) 10/17/22 12:34 Eos # (Auto) 0.2 10^3/uL (0.0-0.8) 10/17/22 12:34 Baso # (Auto) 0.1 10^3/uL (0.0-0.1) 10/17/22 12:34 Nucleated RBC % (auto) 0 % 10/17/22 12:34 Nucleated RBCs # 0.0 /100WBC 10/17/22 12:34 Sodium 139 mmol/L (136-145) 10/17/22 12:34 Potassium 4.7 mmol/L (3.5-5.1) 10/17/22 12:34 Chloride 102 mmol/L (98-107) 10/17/22 12:34 Carbon Dioxide 27 mmol/L (22-29) 10/17/22 12:34 Anion Gap 14.7 (5-19) 10/17/22 12:34 BUN 14 mg/dL (6-20) 10/17/22 12:34 Creatinine 0.9 mg/dL (0.7-1.2) 10/17/22 12:34 GFR Calculation 87.9 mL/min (90-130) L 10/17/22 12:34 Glucose 156 mg/dL (65-115) H 10/17/22 12:34 Calculated Osmolality 292 mOsm/kg (285-295) 10/17/22 12:34 Calcium 9.3 mg/dL (8.5-10.5) 10/17/22 12:34 Discharge Plan Discharge Patient Disposition: Home Clinical Impression: Ventricular premature beats, Atrial fibrillation Condition: Stable Prescriptions: No Action rosuvastatin 0.5 tab PO DAILY@0800 glipizide 5 mg tablet 5 mg PO BID@0800,2000 metformin 1,000 mg tablet 1,000 mg PO BID@0800,2000 lisinopril PO metoprolol tartrate 50 mg tablet 50 mg PO .COMPLEX Qty: 135 3RF Rx Instructions: 50 mg AM and 25 mg PM Eliquis 5 mg tablet 5 mg PO BID Qty: 180 3RF coenzyme Q10 60 mg Capsule 60 mg PO DAILY@0800 Discharge Orders: Discharge ED (Routine); Ordered 10/17/22 Ordered By: Parker Blankenship Referrals: Jhoana Dunn MD [Primary Care Provider] - Discharge Diet: Usual diet Discharge Activity: Increase activity as tolerated Patient Instructions: Opioid Safety, Pain Management Coding Level of Care Code ED Head Of Cytogenetics for Antione Morgan
[2022-10-17 13:15] VITALS: BP 126/70; PULSE 60; RESP 19; O2SAT 97
[2022-10-17 13:18] LABS: Anion Gap 14.7 (5-19); Blood Urea Nitrogen 14 mg/dL (6-20); Calcium 9.3 mg/dL (8.5-10.5); Carbon Dioxide 27 mmol/L (22-29); Chloride 102 mmol/L (98-107); Glomerular Filtration Rate 87.9 mL/min (90-130); Glucose 156 mg/dL (65-115); Osmolality Calculated 292 mOsm/kg (285-295); Potassium 4.7 mmol/L (3.5-5.1); Sodium 139 mmol/L (136-145)
== END 2022-10-17 14:02 | disposition home or self-care (01) ==
PROVIDERS: Emergency Provider Family Medicine; PCP Family Medicine
DX: I48.91 Unspecified atrial fibrillation (principal); I49.3 Ventricular premature depolarization; Z79.84 Long term (current) use of oral hypoglycemic drugs; Z79.01 Long term (current) use of anticoagulants; Z87.891 Personal history of nicotine dependence; E11.9 Type 2 diabetes mellitus without complications; E78.5 Hyperlipidemia, unspecified
CPT/HCPCS: 80048; 85025; 93005; 99285

== ENCOUNTER → 2022-12-16 14:13 | Outpatient (BNVA) | payer OTHER, SELFPAY | PROVIDERS: PCP Family Medicine; Visit Provider Internal Medicine Cardiovascular Disease | DX: I48.92 Unspecified atrial flutter (principal); I48.0 Paroxysmal atrial fibrillation; I49.1 Atrial premature depolarization; E78.5 Hyperlipidemia, unspecified; G47.30 Sleep apnea, unspecified; Z79.01 Long term (current) use of anticoagulants | CPT/HCPCS: 99214 ==

== ENCOUNTER → 2023-05-10 09:56 | Outpatient (BNVA) | payer OTHER, SELFPAY | PROVIDERS: PCP Family Medicine; Visit Provider Podiatrist Foot & Ankle Surgery | DX: M79.671 Pain in right foot (principal); E11.9 Type 2 diabetes mellitus without complications; M92.61 Juvenile osteochondrosis of tarsus, right ankle; M20.41 Other hammer toe(s) (acquired), right foot; M67.873 Other specified disorders of tendon, right ankle and foot; Z79.84 Long term (current) use of oral hypoglycemic drugs | CPT/HCPCS: 73630; 99203 ==

== ENCOUNTER 2023-05-10 11:32 | Outpatient (CLI) | payer OTHER, SELFPAY | END 2023-05-10 11:33 | disposition home or self-care (01) | LOC: SPT 11:32 | PROVIDERS: PCP Family Medicine; Visit Provider Podiatrist Foot & Ankle Surgery | DX: Z46.89 Encounter for fitting and adjustment of other specified devices (principal); M92.61 Juvenile osteochondrosis of tarsus, right ankle; M20.41 Other hammer toe(s) (acquired), right foot | CPT/HCPCS: 97760; L4397 ==

== ENCOUNTER → 2023-06-21 07:52 | Outpatient (BNVA) | payer OTHER, SELFPAY | PROVIDERS: PCP Family Medicine; Visit Provider Podiatrist Foot & Ankle Surgery | DX: M67.873 Other specified disorders of tendon, right ankle and foot (principal); M92.61 Juvenile osteochondrosis of tarsus, right ankle; E11.9 Type 2 diabetes mellitus without complications; M20.41 Other hammer toe(s) (acquired), right foot; Z79.84 Long term (current) use of oral hypoglycemic drugs | CPT/HCPCS: 99213 ==

== ENCOUNTER → 2023-08-23 08:28 | Outpatient (BNVA) | payer OTHER, SELFPAY | PROVIDERS: PCP Family Medicine; Visit Provider Podiatrist Foot & Ankle Surgery | DX: M67.873 Other specified disorders of tendon, right ankle and foot (principal); M92.61 Juvenile osteochondrosis of tarsus, right ankle; M20.41 Other hammer toe(s) (acquired), right foot | CPT/HCPCS: 99213 ==

== ENCOUNTER 2023-09-07 07:43 | Outpatient (CLI) | payer OTHER, SELFPAY ==
--- NOTE | 2023-09-07 08:00 | MR_ITS ---
WS: [id number] MRI RIGHT ANKLE WITHOUT CONTRAST. COMPARISON: Foot radiograph 05/10/2023 Multiplanar, multisequence imaging is performed without contrast. History: Bone spur on heel, pain. Surgical planning. There is a small plantar spur at the calcaneus. There is a very tiny amount of edema along the latera l band of the plantar fascia. Mild thickening the plantar fascia to 6 mm which is suggestive of plant ar fasciitis. The thickening is predominantly along the medial band. The Achilles tendon is normal size. Normal signal. No significant amount of fluid in the retrocalcane al bursa. No thickening of the fat pads. Peroneal tendons, the posterior tibial, flexor hallucis longus and flexor digitorum tendons are negat joanne. The anterior extensor tendons are normal. Syndesmosis is normal. No osteochondral lesions along the talar dome. No significant narrowing of the ankle joint. Ligaments are normal. No joint effusion. There is a small amount of marrow edema in the middle cuneiform and involving the proximal second met atarsal. These changes appear degenerative and related to osteoarthritis. MR/MR ankle RT wo con* [id number] IMPRESSION: 1. Mild plantar fasciitis involving the medial band. Fascia measures up to 6 m m in diameter. 2. Very minimal edema along the lateral band of the plantar fascia. 3. No joint effusion and no fracture. No osteochondral lesions. 4. Degenerative edema noted in the intermediate cuneiform and the proximal sec ond metatarsal.
== END 2023-09-07 07:44 | disposition home or self-care (01) ==
LOC: RAD 07:44
PROVIDERS: PCP Family Medicine; Visit Provider Podiatrist Foot & Ankle Surgery
DX: M67.873 Other specified disorders of tendon, right ankle and foot (principal); M92.61 Juvenile osteochondrosis of tarsus, right ankle; M77.31 Calcaneal spur, right foot
CPT/HCPCS: 73721

== ENCOUNTER → 2023-09-13 07:50 | Outpatient (BNVA) | payer OTHER, SELFPAY | PROVIDERS: PCP Family Medicine; Visit Provider Podiatrist Foot & Ankle Surgery | DX: M67.873 Other specified disorders of tendon, right ankle and foot (principal) | CPT/HCPCS: 99214 ==

== ENCOUNTER → 2023-11-12 09:00 | Outpatient (BNVA) | payer OTHER, SELFPAY | PROVIDERS: PCP Family Medicine; Visit Provider Nurse Practitioner Family | DX: I48.91 Unspecified atrial fibrillation (principal); Z87.891 Personal history of nicotine dependence | CPT/HCPCS: 99213 ==

== ENCOUNTER → 2024-05-03 12:44 | Outpatient (BNVA) | payer OTHER, SELFPAY | PROVIDERS: PCP Family Medicine; Visit Provider Podiatrist Foot & Ankle Surgery | DX: E11.42 Type 2 diabetes mellitus with diabetic polyneuropathy (principal); L60.3 Nail dystrophy; Z79.84 Long term (current) use of oral hypoglycemic drugs | CPT/HCPCS: 99213 ==

== ENCOUNTER 2024-06-16 19:20 | Emergency (ER) | payer OTHER, SELFPAY ==
[2024-06-16] VITALS (7 sets, daily range): BP systolic 112–133; BP diastolic 60–91; PULSE 93–112; RESP 16–18; TEMP 37.8; O2SAT 95–98; BMI 27.7
--- NOTE | 2024-06-16 19:25 | ECG_ITS ---
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: : 1970 Requested By: Jayleen Arias Order Number: [id number] Marta MD: JUAREZ MARI Measurements Intervals [place] Rate: 122 P: 64 RI: 152 QRS: 94 QRSD: 100 T: 13 QT: 305 QTc: 436 Interpretive Statements SINUS TACHYCARDIA BORDERLINE RIGHT AXIS DEVIATION [QRS AXIS > 90] INCOMPLETE RIGHT BUNDLE BRANCH BLOCK [90+ ms QRS DURATION, TERMINAL R IN V1/V2, 40+ ms S IN I/aVL/V4/V5/V6] NONSPECIFIC ST & T-WAVE ABNORMALITY ABNORMAL RHYTHM ECG Compared to ECG 10/17/2022 12:52:53 Incomplete right bundle-branch block now present T-wave abnormality now present Sinus bradycardia no longer present Electronically Signed On 06-20-2024 23:42:25 EVAPORATOR SUPERVISOR by JUAREZ MARI [email or web address] [id number]
--- NOTE | 2024-06-16 19:28 | XRR_ITS ---
PROCEDURE INFORMATION: Exam: XR Chest Exam date and time: 06/16/2024 7:33 PM Age: 54 years old Clinical indication: Other: Palpitations TECHNIQUE: Imaging protocol: Radiologic exam of the chest. Views: 1 view. COMPARISON: CR XR chest 1V portable [id number] 05/17/2020 8:14 PM FINDINGS: Lungs: Unremarkable. No consolidation. Pleural spaces: Unremarkable. No pleural effusion. No pneumothorax. Heart/Mediastinum: Unremarkable. No cardiomegaly. Bones/joints: Unremarkable. XR/XR chest 1V portable [id number] IMPRESSION: No acute findings.
--- NOTE | 2024-06-16 20:15 | W.ED.ARRPALP ---
HPI - Arrhythmia/Palpitations General: Chief Complaint: Arrhythmia/Palpitations Stated Complaint: in afib Time Seen by Provider: 06/16/24 19:51 History of Present Illness: Patient resents to the ER with complaints of feeling his heart going in and out of A-fib today. Patient said when he walked down to the mailbox earlier today he was normal when he turned around to walk back to the house his heart started getting irregular and beating fast. Patient does have a history of A-fib but has not been in A-fib for about 5 years. Patient also complaining of sinus pain pressure nasal congestion and a cough. He said he went to [place] today and he said he has a sinus infection I prescribed him Augmentin, Tessalon Perles and Flonase. Patient is on metoprolol for rate control and blood pressure control and is not on anticoagulation. Related Data Home Medications ?Medication ?Instructions ?Recorded ?Confirmed glipizide 5 mg tablet 5 mg PO BID@08,199906/30/19 05/03/24 metformin 1,000 mg tablet 1,000 mg PO BID@799,199906/30/19 05/03/24 coenzyme Q10 60 mg capsule 60 mg PO DAILY@0800 08/29/19 05/03/24 rosuvastatin 0.5 tab PO DAILY@0802/08/20 05/03/24 metoprolol tartrate 50 mg tablet 25 mg PO BID 11/12/23 05/03/24 Previous Rx's ?Medication ?Instructions ?Recorded Night splint #1 ea 05/10/23 Custom molded with heel cups #1 ea 05/27/23 co-poly insoles with extra depth diabetic shoes Allergies Allergy/AdvReac Type Severity Reaction Status Date / Time atorvastatin (From Lipitor) AdvReac ADR-Cramping Verified 05/03/24 12:58 of the Muscles gemfibrozil (From Lopid) AdvReac ADR-Cramping Verified 05/03/24 12:58 of the Muscles Review of Systems General: Reports: 10 or more systems reviewed and unremarkable except in HPI and below [facility] PFSH: Medical History Atrial fibrillation Paroxysmal atrial fibrillation with rapid ventricular response Plantar fasciitis History of colon polyps Anxiety Diabetes Hyperlipidemia Atrial flutter by electrocardiography Sleep apnea CPAP settings 8 to 14 cm Surgical History H/O knee surgery History of ankle surgery History of colonoscopy with polypectomy (08/31/19) sigmoid , ascending colon polyps, tubular adenoma with low-grade dysplasia Family History Other CAD (coronary artery disease) Cancer Diabetes Family history of CABG Heart disease Social History Smoking and tobacco/nicotine status: former use of tobacco/nicotine Alcohol intake: never Substance/Drug Use: never Physical Exam Const: COMMON NORMALS: no acute distress, average body habitus, patient oriented x3, no limitations, healthy appearing, alert and well nourished HENMT: COMMON NORMALS: normocephalic, atraumatic, hearing grossly normal bilaterally, external ears normal, Normal external nose present, moist oral mucous membranes and oropharynx normal HEAD & SCALP: normocephalic and atraumatic NOSE: Normal external nose present EXTERNAL EAR: Yes external ears normal Neck/C-Spine: COMMON NORMALS: no JVD Chest: COMMONS NORMALS: normal inspection of the chest and normal palpation of entire chest wall Resp: COMMON NORMALS: normal respiratory effort, No retractions, No use of accessory muscles and clear to auscultation bilaterally AUSCULTATION: clear to auscultation bilaterally Cardio: COMMON NORMALS: no JVD, regular rate, regular rhythm, S1 normal heart sound present, S2 normal heart sound present, No gallops present (Cardio), No clicks present (Cardio), No murmurs present (Cardio) and No rub (Cardio) RATE: regular rate RHYTHM: regular rhythm HEART SOUNDS: S1 normal heart sound present and S2 normal heart sound present GI: COMMON NORMALS: Normal to inspection, nondistended, normoactive bowel sounds present, Soft to palpation, non-tender, No hepatosplenomegaly present and no masses PALPATION: Yes Soft to palpation and Yes No hepatosplenomegaly present Neuro: COMMON NORMALS: patient oriented x3 SENSORIUM/ORIENTATION: Yes alert Course Vital Signs: Vital signs: Vital Signs Temperature 100.1 F H 06/16/24 19:23 Pulse Rate 99 06/16/24 22:01 Respiratory Rate 16 06/16/24 22:01 Blood Pressure 121/72 06/16/24 22:01 Pulse Oximetry 96 06/16/24 22:01 Oxygen Delivery Me thod Room Air 06/16/24 19:23 MDM - Arrhythmia/Palpitations Medical Decision Making Presents to the ER with complaints of paroxysmal atrial fibrillation. EKGs were obtained which showed no ST changes sinus rhythm, chest x-ray showed no acute findings, lab work was essentially unremarkable, influenza COVID and RSV were negative. TSH 2.87, troponin baseline less than 6, 2-hour troponin 6, these results were discussed with the patient. Patient has a known history of atrial fibrillation. He may be jumping in and out of atrial fibrillation. Patient also has a sinus infection and is on medicine for. Patient should follow-up with his PCP. Medical Records I reviewed the patient's medical records. Lab Data I reviewed the patient's lab results. 06/16/24 20:00 06/16/24 20:00 Radiology Impressions Chest X-Ray 06/16/24 19:28 IMPRESSION: No acute findings. Laboratory Results WBC 6.04 10^3/uL (3.29-11.43) 06/16/24 20:00 RBC 4.65 10^6/uL (3.85-5.65) 06/16/24 20:00 Hgb 13.60 g/dL (11.27-16.99) 06/16/24 20:00 Hct 42.0 % (37-53) 06/16/24 20:00 MCV 90.3 fl (82-101) 06/16/24 20:00 MCH 29.2 pg (27-33) 06/16/24 20:00 MCHC 32.4 g/dL (30-55) 06/16/24 20:00 RDW 13.1 % (12.1-15.1) 06/16/24 20:00 Plt Count 222 10^3/cmm (157-399) 06/16/24 20:00 MPV 10.4 fL (7.4-10.4) 06/16/24 20:00 Neut % (Auto) 61.3 % 06/16/24 20:00 Lymph % (Auto) 23.0 % 06/16/24 20:00 [place] % (Auto) 10.9 % 06/16/24 20:00 Eos % (Auto) 3.5 % 06/16/24 20:00 Baso % (Auto) 1.0 % 06/16/24 20:00 Neut # (Auto) 3.70 10^3/uL (1.8-7.7) 06/16/24 20:00 Lymph # (Auto) 1.4 10^3/uL (0.8-4.8) 06/16/24 20:00 [place] # (Auto) 0.7 10^3/uL (0.2-0.9) 06/16/24 20:00 Eos # (Auto) 0.2 10^3/uL (0.0-0.8) 06/16/24 20:00 Baso # (Auto) 0.1 10^3/uL (0.0-0.1) 06/16/24 20:00 Nucleated RBC % (auto) 0 % 06/16/24 20:00 Nucleated RBCs # 0.0 /100WBC 06/16/24 20:00 Sodium 137 mmol/L (136-145) 06/16/24 20:00 Potassium 3.9 mmol/L (3.5-5.1) 06/16/24 20:00 Chloride 99 mmol/L (98-107) 06/16/24 20:00 Carbon Dioxide 29 mmol/L (22-29) 06/16/24 20:00 Anion Gap 12.9 (5-19) 06/16/24 20:00 BUN 15 mg/dL (6-20) 06/16/24 20:00 Creatinine 1.0 mg/dL (0.7-1.2) 06/16/24 20:00 GFR Calculation 77.3 mL/min (90-130) L 06/16/24 20:00 Glucose 124 mg/dL (65-115) H 06/16/24 20:00 Calculated Osmolality 286 mOsm/kg (285-295) 06/16/24 20:00 Calcium 9.0 mg/dL (8.5-10.5) 06/16/24 20:00 Magnesium 1.8 mg/dL (1.7-2.3) 06/16/24 20:00 Total Bilirubin 0.4 mg/dL (0.15-1.2) 06/16/24 20:00 AST 16 U/L (0-40) 06/16/24 20:00 ALT 23 U/L (0-41) 06/16/24 20:00 Alkaline Phosphatase 77 U/L (40-130) 06/16/24 20:00 Troponin T Baseline < 6 ng/L (0-15) 06/16/24 20:00 Troponin T 120 Minute 6.00 ng/L (0-15) 06/16/24 21:52 Delta Troponin T 0.24773 ABS# (0-10) 06/16/24 21:52 Total Protein 7.2 g/dL (6.6-8.7) 06/16/24 20:00 Albumin 4.3 g/dL (3.5-5.2) 06/16/24 20:00 Globulin 2.9 g/dL (1.3-4.6) 06/16/24 20:00 TSH 2.87 uIU/mL (0.27-4.20) 06/16/24 20:00 Urine Color Yellow (Yellow) 06/16/24 21: Urine Appearance Clear (CLEAR) 06/16/24 21: Urine pH 5.0 (5-7) 06/16/24 21: Ur Specific [place] 1.011 (1.005-1.030) 06/16/24 21: Urine Protein Negative (Negative) 06/16/24 21: Urine Glucose (UA) Negative (Normal) 06/16/24 21: Urine Ketones Negative (Negative) 06/16/24 21: Urine Blood Negative (Negative) 06/16/24 21: Urine Nitrate Negative (Negative) 06/16/24 21: Urine Bilirubin Negative (Negative) 06/16/24 21: Urine Urobilinogen 0.2 mg/dL (Negative) 06/16/24 21: Ur Leukocyte Esterase Negative (Negative) 06/16/24 21: Urine RBC 0-4 /hpf (0-2) H 06/16/24 21:04 Urine WBC 0-4 /hpf (0-5) H 06/16/24 21:04 Ur Squamous Epith Cells 0-4 /hpf (0-5) H 06/16/24 21:04 Amorphous Sediment Not Reportable 06/16/24 21:04 Urine Bacteria Trace /hpf (NONE) 06/16/24 21:04 Influenza A (PCR) Negative (Negative) 06/16/24 20:00 Influenza Type B (PCR) Negative (Negative) 06/16/24 20:00 RSV (PCR) Negative (Negative) 06/16/24 20:00 SARS-CoV-2 (PCR) Negative (Negative) 06/16/24 20:00 All radiology interpretation(s) finalized by discharge Discharge Plan Discharge Patient Disposition: Home Clinical Impression: Palpitations Condition: Stable Prescriptions: No Action rosuvastatin 0.5 tab PO DAILY@0800 glipizide 5 mg tablet 5 mg PO BID@0800,1999 metformin 1,000 mg tablet 1,000 mg PO BID@0800,1999 metoprolol tartrate 50 mg tablet 25 mg PO BID (DME) Night splint See Rx Instructions .Route .MEDSUPPLY Qty: 1 0RF Rx Instructions: As directed (DME) Custom molded with heel cups co-poly insoles with extra depth diabetic shoes See Rx Instructions .Route .MEDSUPPLY Qty: 1 0RF Rx Instructions: As directed by [facility] coenzyme Q10 60 mg Capsule 60 mg PO DAILY@0800 Discharge Orders: Discharge ED (Routine); Ordered 06/16/24 Ordered By: kR Felder Referrals: Jhoana Dunn MD [Primary Care Provider] - 1 week Patient Instructions: Heart Palpitations Activity Restrictions/Additional Instructions: Your evaluation ER did not show any acute cause of your palpitations. it may be that you are going in and out of atrial fibrillation as per your history. Please continue take all of your medicine as directed. For your sinus infection that was diagnosed earlier please take the antibiotics, nasal sprays, and cough medicine as directed. Please follow-up with your family practice physician and/or title one teacher within the next 7 days for further evaluation and treatment as needed. If your symptoms worsen please feel free to return to the ER. Print Language: Faroese Coding Level of Care Code ED Scales Inspector for Antione Morgan
[2024-06-16 20:17] LABS: Basophils # 0.1 10^3/uL (0.0-0.1); Eosinophils # 0.2 10^3/uL (0.0-0.8); Eosinophils % 3.5 %; Lymphocytes # 1.4 10^3/uL (0.8-4.8); Mean Corpuscular HGB Conc 32.4 g/dL (30-55); Mean Corpuscular Hemoglobin 29.2 pg (27-33); Mean Corpuscular Volume 90.3 fl (82-101); Mean Platelet Volume 10.4 fL (7.4-10.4); Monocytes # 0.7 10^3/uL (0.2-0.9); Monocytes % 10.9 %; Neutrophils % 61.3 %; Nucleated Red Blood Cells % 0 %; Platelet Count 222 10^3/cmm (157-399); Red Blood Count 4.65 10^6/uL (3.85-5.65); Red Cell Distribution Width 13.1 % (12.1-15.1); White Blood Count 6.04 10^3/uL (3.29-11.43)
[2024-06-16 20:41] LABS: Troponin(5th) Baseline < 6 ng/L (0-15)
[2024-06-16 20:51] LABS: Alanine Aminotransferase 23 U/L (0-41); Albumin Level 4.3 g/dL (3.5-5.2); Alkaline Phosphatase 77 U/L (40-130); Anion Gap 12.9 (5-19); Aspartate Amino Transferase 16 U/L (0-40); Blood Urea Nitrogen 15 mg/dL (6-20); Carbon Dioxide 29 mmol/L (22-29); Chloride 99 mmol/L (98-107); Creatinine Clr Calc Pharmacy 106.1424; Globulin 2.9 g/dL (1.3-4.6); Glomerular Filtration Rate 77.3 mL/min (90-130); Glucose 124 mg/dL (65-115); Magnesium 1.8 mg/dL (1.7-2.3); Osmolality Calculated 286 mOsm/kg (285-295); Potassium 3.9 mmol/L (3.5-5.1); Sodium 137 mmol/L (136-145); Thyroid Stimulating Hormone 2.87 uIU/mL (0.27-4.20); Total Bilirubin 0.4 mg/dL (0.15-1.2); Total Protein 7.2 g/dL (6.6-8.7)
[2024-06-16 20:54] LABS: Influenza A NEGATIVE (Negative); Influenza B NEGATIVE (Negative); Respiratory Syncytial Virus Ce NEGATIVE (Negative); SARS-CoV-2 PCR NEGATIVE (Negative)
[2024-06-16 21:15] LABS: Bilirubin Urine Negative (Negative); Blood Urine Negative (Negative); Glucose Urine UA Negative (Normal); Ketones Urine Negative (Negative); Leukocyte Esterase Urine Negative (Negative); Nitrate Urine Negative (Negative); Protein Urine Negative (Negative); Specific Gravity, Urine 1.011 (1.005-1.030); Urine Appearance Clear (CLEAR); Urine Color Yellow (Yellow); Urobilinogen Urine 0.2 mg/dL (Negative)
[2024-06-16 21:29] LABS: Add Urine Culture? No; Bacteria Urine TRACE /hpf; RBC Urine 0-4 /hpf (0-2); Squamous Epithelial Cell Urine 0-4 /hpf (0-5); UA Manual Slide Review YES; WBC Urine 0-4 /hpf (0-5)
--- NOTE | 2024-06-16 21:55 | ECG_ITS ---
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: : 1970 Requested By: Jayleen Arias Order Number: [id number] Marta MD: JUAREZ MARI Measurements Intervals [place] Rate: 98 P: 53 NV: 178 QRS: 83 QRSD: 104 T: 19 QT: 334 QTc: 426 Interpretive Statements SINUS RHYTHM INCOMPLETE RIGHT BUNDLE BRANCH BLOCK [90+ ms QRS DURATION, TERMINAL R IN V1/V2, 40+ ms S IN I/aVL/V4/V5/V6] NONSPECIFIC ST & T-WAVE ABNORMALITY Compared to ECG 10/17/2022 12:52:53 Incomplete right bundle-branch block now present T-wave abnormality now present Sinus bradycardia no longer present Electronically Signed On 06-20-2024 23:51:47 HAM STRINGER by JUAREZ MARI [email or web address] [id number]
[2024-06-16 22:13] LABS: Troponin 5 2HR Delta 0.00001 ABS# (0-10)
== END 2024-06-16 22:42 | disposition home or self-care (01) ==
PROVIDERS: Emergency Medicine; Emergency Provider Emergency Medicine; PCP Family Medicine
DX: R00.2 Palpitations (principal); Z11.52 Encounter for screening for COVID-19; Z79.84 Long term (current) use of oral hypoglycemic drugs; Z87.891 Personal history of nicotine dependence; E11.9 Type 2 diabetes mellitus without complications; E78.5 Hyperlipidemia, unspecified
CPT/HCPCS: 36415; 71045; 80053; 81001; 83735; 84443; 84484; 85025; 87637; 93005; 99285

== ENCOUNTER 2024-09-24 19:42 | Emergency (ER) | payer OTHER, SELFPAY ==
[2024-09-24 20:01] VITALS: BP 123/71; PULSE 83; RESP 18; TEMP 36.8; O2SAT 98
--- NOTE | 2024-09-24 20:13 | XRR_ITS ---
PROCEDURE INFORMATION: Exam: XR Right Knee Exam date and time: 09/24/2024 8:50 PM Age: 54 years old Clinical indication: Right; Prior surgery; Surgery date: 6+ months; Surgery type: Pinning; C/O worsening RT knee pain with swelling over the last week. No injury. TECHNIQUE: Imaging protocol: Radiologic exam of the right knee. Views: 3 views. COMPARISON: MR ankle RT wo con* [id number] 09/07/2023 7:56 AM FINDINGS: Bones/joints: Postsurgical changes of prior ligament repair. No distinct radiographic evidence of hardware complication. No acute fracture or dislocation. [id number] patellar spurring. Small to moderate-sized suprapatellar knee joint effusion. Tricompartmental knee joint osteoarthritis, most prominent at the patellofemoral joint. Soft tissues: Superficial soft tissues are otherwise within normal limits. XR/XR knee RT 3V* [id number] IMPRESSION: 1. Small to moderate-sized suprapatellar knee joint effusion. 2. Tricompartmental knee joint osteoarthritis, most prominent at the patellofemoral joint. 3. Postsurgical changes of prior ligament repair. No distinct radiographic evidence of hardware complication.
[2024-09-24] MEDS: predniSONE 20 mg Tablet 60 MG PO (21:46)
[2024-09-24] MEDS: cephALEXin 500 mg Capsule PO (21:46)
[2024-09-24] MEDS: ketorolac 60 mg/2 mL INJ IM (21:47)
[2024-09-24] MEDS: ondansetron hcl ODT 4 mg Tab PO (21:47)
[2024-09-24] MEDS: morphine 4 mg/mL SDV 1 mL 10 MG IM (21:47)
--- NOTE | 2024-09-24 21:55 | W.ED.EXTPRO ---
HPI - Extremity Problem General: Chief complaint: Extremity Injury, Lower Stated complaint: rt knee pain Time Seen by Provider: 09/24/24 20:46 History of Present Illness: This patient is a 54-year-old white male who presents to the ER complaining of anterior right knee pain. He states this has been bothering him for 1 week now. He states he just woke up with it 1 morning. No injury. The pain only involves the skin and tissue overlying the anterior aspect of the right knee just proximal to the patella. He has not had a fever. Related Data Home Medications ?Medication ?Instructions ?Recorded ?Confirmed glipizide 5 mg tablet 5 mg PO BID@0800,199906/30/19 05/03/24 metformin 1,000 mg tablet 1,000 mg PO BID@08,199906/30/19 05/03/24 coenzyme Q10 60 mg capsule 60 mg PO DAILY@0800 08/29/19 05/03/24 rosuvastatin 0.5 tab PO DAILY@0800 02/08/20 05/03/24 metoprolol tartrate 50 mg tablet 25 mg PO BID 11/12/23 05/03/24 Previous Rx's ?Medication ?Instructions ?Recorded Night splint #1 ea 05/10/23 Custom molded with heel cups #1 ea 05/27/23 co-poly insoles with extra depth diabetic shoes cephalexin 500 mg capsule 500 mg PO QID 10 days #40 caps 09/24/24 hydrocodone 5 mg-acetaminophen 325 1 tab PO Q4H PRN pain #30 tabs 09/24/24 mg tablet ibuprofen 800 mg tablet 800 mg PO TID #30 tabs 09/24/24 methylprednisolone 4 mg tablets in See Rx Instructions PO .COMPLEX 09/24/24 a dose pack (Medrol ([facility])) #21 ea Allergies Allergy/AdvReac Type Severity Reaction Status Date / Time atorvastatin (From Lipitor) AdvReac ADR-Cramping Verified 09/24/24 20:07 of the Muscles gemfibrozil (From Lopid) AdvReac ADR-Cramping Verified 09/24/24 20:07 of the Muscles Review of Systems General: Reports: 10 or more systems reviewed and unremarkable except in HPI and below PFSH ED PFSH: Medical History Atrial fibrillation Paroxysmal atrial fibrillation with rapid ventricular response Plantar fasciitis History of colon polyps Anxiety Diabetes Hyperlipidemia Atrial flutter by electrocardiography Sleep apnea CPAP settings 8 to 14 cm Surgical History H/O knee surgery History of ankle surgery History of colonoscopy with polypectomy (08/31/19) sigmoid , ascending colon polyps, tubular adenoma with low-grade dysplasia Family History Other CAD (coronary artery disease) Cancer Diabetes Family history of CABG Heart disease Social History Smoking and tobacco/nicotine status: former use of tobacco/nicotine Alcohol intake: never Substance/Drug Use: never Physical Exam Const: COMMON NORMALS: no acute distress, patient oriented x3 and no limitations GENERAL APPEARANCE: cooperative and comfortable HENMT: COMMON NORMALS: normocephalic, atraumatic, Normal nasal mucous membranes and turbinates present, moist oral mucous membranes and oropharynx normal HEAD & SCALP: normal to inspection, normocephalic and atraumatic FACE & SINUS: normal facial exam NOSE: Normal nasal mucous membranes and turbinates present Eye: COMMON NORMALS: Equal, round and reactive pupils present, EOMs intact bilaterally and conjunctivae normal GENERAL EYE: appearance normal, both eyes and all related structures CONJUNCTIVA: Yes conjunctivae normal PUPIL: Yes Equal, round and reactive pupils present Neck/C-Spine: COMMON NORMALS: supple and no JVD Chest: COMMONS NORMALS: normal inspection of the chest Resp: COMMON NORMALS: normal respiratory effort and clear to auscultation bilaterally AUSCULTATION: clear to auscultation bilaterally Cardio: COMMON NORMALS: no JVD, regular rate, regular rhythm, No gallops present (Cardio), No murmurs present (Cardio) and No rub (Cardio) RATE: regular rate RHYTHM: regular rhythm GI: COMMON NORMALS: Normal to inspection, nondistended, normoactive bowel sounds present, Soft to palpation and non-tender AUSCULTATION: Yes normoactive bowel sounds PALPATION: Yes Soft to palpation : COMMON NORMALS: Yes no CVA tenderness BLADDER/KIDNEY EXAM: Yes no CVA tenderness Back/Pelvis: COMMON NORMALS: no CVA tenderness and thoracic and lumbar spine normal to inspection Extremity: COMMON NORMALS: normal to inspection NARRATIVE EXTREMITY EXAM: No joint pain with range of motion of the right knee. He does have swelling over the patellar bursa. This is tender to palpation and warm. No drainage. Neuro: COMMON NORMALS: patient oriented x3 and CN's II-XII intact bilaterally Psych: COMMON NORMALS: mental status grossly normal, Normal thought process present and cooperative THOUGHT PROCESS: Normal thought process present Skin: COMMON NORMALS: no rashes or lesions noted, turgor normal and no jaundice GENERAL SKIN EXAM: no rashes or lesions noted and turgor normal Course Vital Signs: Vital signs: Vital Signs Temperature 98.3 F 09/24/24 20: Pulse Rate 83 09/24/24 20: Respiratory Rate 18 09/24/24 20: Blood Pressure 123/71 09/24/24 20: Pulse Oximetry 98 09/24/24 20:01 MDM - Extremity (Nontraumatic) Medical Decision Making Patient's pain was treated with Toradol and morphine in the emergency department. He was also given Keflex and prednisone. He was discharged in stable condition with prescriptions for Keflex, hydrocodone, ibuprofen and a Medrol Dosepak. Recommended he follow-up with his primary care provider within 1 week for recheck. All radiology interpretation(s) finalized by discharge Discharge Plan Discharge Patient Disposition: Home Clinical Impression: Bursitis of right patella Condition: Stable Prescriptions: New methylprednisolone [Medrol ([facility])] 4 mg tablets,dose pack See Rx Instructions .ROUTE .COMPLEX Qty: 21 0RF Rx Instructions: for 6 days ibuprofen 800 mg tablet 800 mg PO TID Qty: 30 0RF hydrocodone-acetaminophen 5-325 mg tablet 1 tab PO Q4H PRN (Reason: pain) Qty: 30 0RF cephalexin 500 mg capsule 500 mg PO QID 10 Days Qty: 40 0RF No Action rosuvastatin 0.5 tab PO DAILY@0800 glipizide 5 mg tablet 5 mg PO BID@08,1999 metformin 1,000 mg tablet 1,000 mg PO BID@08,1999 metoprolol tartrate 50 mg tablet 25 mg PO BID (DME) Night splint See Rx Instructions .Route .MEDSUPPLY Qty: 1 0RF Rx Instructions: As directed (DME) Custom molded with heel cups co-poly insoles with extra depth diabetic shoes See Rx Instructions .Route .MEDSUPPLY Qty: 1 0RF Rx Instructions: As directed by [facility] coenzyme Q10 60 mg Capsule 60 mg PO DAILY@0800 Discharge Orders: Discharge ED (Routine); Ordered 09/24/24 Ordered By: Lars Ospina Referrals: Jhoana Dunn MD [Primary Care Provider, [facility]] Patient Instructions: Knee Bursitis (ED), Opioid Safety Activity Restrictions/Additional Instructions: Follow-up with your primary care provider within 1 week for recheck and ongoing management. Print Language: Persian Coding Level of Care Code ED Email Marketing Coordinator for Antione Morgan
[2024-09-24 21:56] VITALS: BP 126/78; PULSE 86; RESP 16; O2SAT 99
== END 2024-09-24 21:59 | disposition home or self-care (01) ==
PROVIDERS: Emergency Provider Emergency Medicine; PCP Family Medicine
DX: M70.51 Other bursitis of knee, right knee (principal); Z79.84 Long term (current) use of oral hypoglycemic drugs; Z87.891 Personal history of nicotine dependence; E78.5 Hyperlipidemia, unspecified; E11.9 Type 2 diabetes mellitus without complications
CPT/HCPCS: 73562; 96372; 99284; J1885; J2270; J7512; J9999; Q0162

== ENCOUNTER 2024-10-06 21:21 | Emergency (ER) | payer OTHER, SELFPAY ==
[2024-10-06 21:22] VITALS: BMI 27.3
--- NOTE | 2024-10-06 21:23 | ECG_ITS ---
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 Measurements Intervals [place] Rate: 79 P: 74 IN: 170 QRS: 91 QRSD: 97 T: 28 QT: 362 QTc: 415 Interpretive Statements SINUS RHYTHM BORDERLINE RIGHT AXIS DEVIATION [QRS AXIS > 90] Compared to ECG 06/16/2024 21:55:02 Incomplete right bundle-branch block no longer present T-wave abnormality no longer present Electronically Signed On 10-07-2024 14:33:14 CDT by Tejinder Herzog M.D. [id number] [id number]
--- NOTE | 2024-10-06 21:47 | XRR_ITS ---
PROCEDURE INFORMATION: Exam: XR Chest Exam date and time: 10/06/2024 10:07 PM Age: 54 years old Clinical indication: Pain; Chest pressure; Chest discomfort with tachycardia. History of afib. ; Additional info: Arrhythmia TECHNIQUE: Imaging protocol: Radiologic exam of the chest. Views: 1 view. COMPARISON: CR XR chest 1V portable [id number] 06/16/2024 7:33 PM FINDINGS: Lungs: Unremarkable. No consolidation. Pleural spaces: Unremarkable. No pleural effusion. No pneumothorax. Heart/Mediastinum: Unremarkable. No cardiomegaly. Bones/joints: Unremarkable. XR/XR chest 1V portable [id number] IMPRESSION: No acute findings.
--- NOTE | 2024-10-06 22:26 | W.ED.ARRPALP ---
HPI - Arrhythmia/Palpitations General: Chief Complaint: Arrhythmia/Palpitations Stated Complaint: chest pressure SOB believes afib Time Seen by Provider: 10/06/24 21:40 History of Present Illness: Patient presents with complaints of cardiac symptoms including palpitations and intermittent chest discomfort over the past 3-4 weeks. Patient reports a history of atrial fibrillation, with the last documented episode in May 2018. Patient states they were previously in AFib and have been experiencing increased episodes recently with associated nausea. Patient denies knowing their heart rate during these episodes. Patient reports a history of COVID-19 infection which they believe triggered a recurrence of AFib symptoms after being symptom-free for approximately 1-1.5 years. Patient describes experiencing multiple consecutive extra beats ( 14 of them in a row ) which they find annoying, whereas previously they would only experience occasional isolated extra beats. Patient also mentions experiencing weird tingling between the shoulder blades. Patient reports mild shortness of breath which is unusual for them. Patient denies current use of blood thinners and states they haven't been on anticoagulation for five years. Patient reports taking metoprolol 50mg daily for blood pressure management. Recent bloodwork was performed at the [facility] a couple weeks ago, but cardiac markers were not checked. Patient's last visit for cardiac issues was reportedly on June 16, 2024. Related Data Home Medications ?Medication ?Instructions ?Recorded ?Confirmed glipizide 5 mg tablet 5 mg PO BID@0800,199906/30/19 05/03/24 metformin 1,000 mg tablet 1,000 mg PO BID@0806/30/19 05/03/24 coenzyme Q10 60 mg capsule 60 mg PO DAILY@0808/29/19 05/03/24 rosuvastatin 0.5 tab PO DAILY@0800 02/08/20 05/03/24 metoprolol tartrate 50 mg tablet 25 mg PO BID 11/12/23 05/03/24 Previous Rx's ?Medication ?Instructions ?Recorded Night splint #1 ea 05/10/23 Custom molded with heel cups #1 ea 05/27/23 co-poly insoles with extra depth diabetic shoes hydrocodone 5 mg-acetaminophen 325 1 tab PO Q4H PRN pain #30 tabs 09/24/24 mg tablet ibuprofen 800 mg tablet 800 mg PO TID #30 tabs 09/24/24 methylprednisolone 4 mg tablets in See Rx Instructions PO .COMPLEX 09/24/24 a dose pack (Medrol ([facility])) #21 ea Allergies Allergy/AdvReac Type Severity Reaction Status Date / Time atorvastatin (From Lipitor) AdvReac ADR-Cramping Verified 10/06/24 21:30 of the Muscles gemfibrozil (From Lopid) AdvReac ADR-Cramping Verified 10/06/24 21:30 of the Muscles Review of Systems General: Reports: 10 or more systems reviewed and unremarkable except in HPI and below PFSH ED PFSH: Medical History Atrial fibrillation Paroxysmal atrial fibrillation with rapid ventricular response Plantar fasciitis History of colon polyps Anxiety Diabetes Hyperlipidemia Atrial flutter by electrocardiography Sleep apnea CPAP settings 8 to 14 cm Surgical History H/O knee surgery History of ankle surgery History of colonoscopy with polypectomy (08/31/19) sigmoid , ascending colon polyps, tubular adenoma with low-grade dysplasia Family History Other CAD (coronary artery disease) Cancer Diabetes Family history of CABG Heart disease Social History Smoking and tobacco/nicotine status: former use of tobacco/nicotine Alcohol intake: never Substance/Drug Use: never Physical Exam Const: COMMON NORMALS: no acute distress, patient oriented x3, alert and well nourished HENMT: COMMON NORMALS: normocephalic HEAD & SCALP: normocephalic Eye: COMMON NORMALS: Equal, round and reactive pupils present, EOMs intact bilaterally and conjunctivae normal CONJUNCTIVA: Yes conjunctivae normal PUPIL: Yes Equal, round and reactive pupils present Neck/C-Spine: COMMON NORMALS: no JVD Resp: COMMON NORMALS: normal respiratory effort, No retractions, No use of accessory muscles, clear to auscultation bilaterally and percussion normal AUSCULTATION: clear to auscultation bilaterally PERCUSSION: percussion normal Cardio: COMMON NORMALS: no JVD and regular rate; negative for regular rhythm RATE: regular rate RHYTHM: abnormal rhythm GI: COMMON NORMALS: Normal to inspection, nondistended, normoactive bowel sounds present, Soft to palpation, non-tender, No hepatosplenomegaly present, no masses and no bruits PALPATION: Yes Soft to palpation and Yes No hepatosplenomegaly present Extremity: COMMON NORMALS: normal to inspection, full ROM, capillary refill normal, no joint enlargement, no clubbing, cyanosis or edema, no calf tenderness and no pedal edema Neuro: COMMON NORMALS: patient oriented x3 SENSORIUM/ORIENTATION: Yes alert Skin: COMMON NORMALS: no rashes or lesions noted, turgor normal and no jaundice GENERAL SKIN EXAM: no rashes or lesions noted and turgor normal MDM - Arrhythmia/Palpitations Medical Decision Making 1. Atrial Fibrillation with recent exacerbation or other arrhytmia / frequent PVC or PACS: - Patient with known history of AFib, now presenting with symptoms suggestive of recurrent episodes - Symptoms appear to have worsened over past 3-4 weeks with multiple consecutive ectopic beats - Obtaining 12-lead EKG today to assess current rhythm and evaluate for AFib or other arrhythmias - [facility] - Consider Holter monitor if symptoms persist to capture paroxysmal episodes 2. Anticoagulation Assessment: - Patient reports no current anticoagulation therapy despite history of AFib - Will calculate CHADS?-VASc score to assess stroke risk and need for anticoagulation - Will discuss anticoagulation options if indicated based on risk assessment 3. Medication Management: - Continue metoprolol 50mg daily for rate control and blood pressure management - Consider dose adjustment based on heart rate control and symptom response 4. Laboratory Evaluation: - Ordering comprehensive metabolic panel to assess electrolytes (particularly potassium and magnesium) - Thyroid function tests to rule out hyperthyroidism as trigger for AFib 5. Chest/Back Discomfort: - Evaluate tingling sensation between shoulder blades - Consider cardiac vs. musculoskeletal etiology - Will assess need for further cardiac testing based on EKG findings 6. Follow-up: - Return to clinic in 1-2 weeks to review test results and reassess symptoms - Consider cardiology referral if symptoms persist or worsen - Patient instructed to seek immediate medical attention if experiencing severe chest pain, sustained palpitations, syncope, or severe shortness of breath Patient was able to sleep was resting easily when I went in to examine him last time. He does have an occasional PVC noted on the monitor but he is in normal sinus rhythm. Patient does meet criteria for LVH magnesium was 1.8 but most all the other labs were normal. I have recommended that he increase his metoprolol follow-up with cardiology in return for new or worsening symptoms. Lab Data 10/06/24 22:23 10/06/24 22:23 Radiology Impressions Chest X-Ray 10/06/24 21:47 IMPRESSION: No acute findings. Laboratory Results WBC 6.90 10^3/uL (3.29-11.43) 10/06/24 22: RBC 4.71 10^6/uL (3.85-5.65) 10/06/24 22:23 Hgb 14.10 g/dL (11.27-16.99) 10/06/24 22:23 Hct 42.4 % (37-53) 10/06/24 22: MCV 90.0 fl (82-101) 10/06/24 22: MCH 29.9 pg (27-33) 10/06/24 22: MCHC 33.3 g/dL (30-55) 10/06/24 22: RDW 13.0 % (12.1-15.1) 10/06/24 22: Plt Count 261 10^3/cmm (157-399) 10/06/24 22: MPV 10.6 fL (7.4-10.4) H 10/06/24 22: Neut % (Auto) 53.8 % 10/06/24 22: Lymph % (Auto) 32.5 % 10/06/24 22: Woodson % (Auto) 7.7 % 10/06/24 22: Eos % (Auto) 4.3 % 10/06/24: Baso % (Auto) 1.4 % 10/06/24: Neut # (Auto) 3.71 10^3/uL (1.8-7.7) 10/06/24 22: Lymph # (Auto) 2.2 10^3/uL (0.8-4.8) 10/06/24: [place]son # (Auto) 0.5 10^3/uL (0.2-0.9) 10/06/24 22: Eos # (Auto) 0.3 10^3/uL (0.0-0.8) 10/06/24: Baso # (Auto) 0.1 10^3/uL (0.0-0.1) 10/06/24 22:23 Nucleated RBC % (auto) 0 % 10/06/24 22:23 Nucleated RBCs # 0.0 /100WBC 10/06/24 22:23 Sodium 143 mmol/L (136-145) 10/06/24 22:23 Potassium 4.1 mmol/L (3.5-5.1) 10/06/24 22:23 Chloride 106 mmol/L (98-107) 10/06/24 22:23 Carbon Dioxide 25 mmol/L (22-29) 10/06/24 22:23 Anion Gap 16.1 (5-19) 10/06/24 22:23 BUN 18 mg/dL (6-20) 10/06/24 22:23 Creatinine 1.0 mg/dL (0.7-1.2) 10/06/24 22:23 Calcium 9.2 mg/dL (8.5-10.5) 10/06/24 22:23 Magnesium 1.8 mg/dL (1.7-2.3) 10/06/24 22:23 Total Bilirubin 0.3 mg/dL (0.15-1.2) 10/06/24 22:23 AST 17 U/L (0-40) 10/06/24 22:23 ALT 22 U/L (0-41) 10/06/24 22:23 Alkaline Phosphatase 51 U/L (40-130) 10/06/24 22:23 Total Protein 7.0 g/dL (6.6-8.7) 10/06/24 22:23 Albumin 4.2 g/dL (3.5-5.2) 10/06/24 22:23 Globulin 2.8 g/dL (1.3-4.6) 10/06/24 22:23 XR interpretation done by ED provider, pending radiology final review Discharge Plan Discharge Patient Disposition: Home Clinical Impression: Ventricular premature beats, Palpitations Condition: Stable Prescriptions: No Action rosuvastatin 0.5 tab PO DAILY@0800 glipizide 5 mg tablet 5 mg PO BID@0800,2000 metformin 1,000 mg tablet 1,000 mg PO BID@0800,2000 metoprolol tartrate 50 mg tablet 25 mg PO BID (DME) Night splint See Rx Instructions .Route .MEDSUPPLY Qty: 1 0RF Rx Instructions: As directed (DME) Custom molded with heel cups co-poly insoles with extra depth diabetic shoes See Rx Instructions .Route .MEDSUPPLY Qty: 1 0RF Rx Instructions: As directed by [facility] coenzyme Q10 60 mg Capsule 60 mg PO DAILY@0800 methylprednisolone [Medrol ([facility])] 4 mg tablets,dose pack See Rx Instructions .ROUTE .COMPLEX Qty: 21 0RF Rx Instructions: for 6 days ibuprofen 800 mg tablet 800 mg PO TID Qty: 30 0RF hydrocodone-acetaminophen 5-325 mg tablet 1 tab PO Q4H PRN (Reason: pain) Qty: 30 0RF Discharge Orders: Discharge ED (Routine); Ordered 10/06/24 Ordered By: Hung Sales Referrals: Jhoana Dunn MD [Primary Care Provider, Family Practice] Discharge Diet: Usual diet and As Directed Discharge Activity: Resume usual activity Patient Instructions: Opioid Safety, Pain Management Activity Restrictions/Additional Instructions: 1. Increase potassium / magnesium rich food and drink. 2. Follow up with cardiology as scheduled. Increase metoprolol to 75mg or 100mg daily. 3. Return to ED for new or worsening symptoms. Print Language: Stateless Coding Level of Care Code ED Match Up Worker for Antione Morgan
[2024-10-06] MEDS: magnesium sulfate premix 4 GM/100 ML PREMIX IV (22:27)
[2024-10-06 22:30] LABS: Basophils # 0.1 10^3/uL (0.0-0.1); Basophils % 1.4 %; Eosinophils # 0.3 10^3/uL (0.0-0.8); Eosinophils % 4.3 %; Hematocrit 42.4 % (37-53); Lymphocytes # 2.2 10^3/uL (0.8-4.8); Lymphocytes % 32.5 %; Mean Corpuscular HGB Conc 33.3 g/dL (30-55); Mean Corpuscular Hemoglobin 29.9 pg (27-33); Mean Platelet Volume 10.6 fL (7.4-10.4); Monocytes # 0.5 10^3/uL (0.2-0.9); Monocytes % 7.7 %; Neutrophils # 3.71 10^3/uL (1.8-7.7); Neutrophils % 53.8 %; Nucleated Red Blood Cells % 0 %; Platelet Count 261 10^3/cmm (157-399); Red Blood Count 4.71 10^6/uL (3.85-5.65)
[2024-10-06 22:58] LABS: Alanine Aminotransferase 22 U/L (0-41); Albumin Level 4.2 g/dL (3.5-5.2); Alkaline Phosphatase 51 U/L (40-130); Anion Gap 16.1 (5-19); Aspartate Amino Transferase 17 U/L (0-40); Blood Urea Nitrogen 18 mg/dL (6-20); Calcium 9.2 mg/dL (8.5-10.5); Carbon Dioxide 25 mmol/L (22-29); Chloride 106 mmol/L (98-107); Creatinine Clr Calc Pharmacy 105.5073; Globulin 2.8 g/dL (1.3-4.6); Glomerular Filtration Rate 77.3 mL/min (90-130); Glucose 118 mg/dL (65-115); Magnesium 1.8 mg/dL (1.7-2.3); Osmolality Calculated 299 mOsm/kg (285-295); Potassium 4.1 mmol/L (3.5-5.1); Sodium 143 mmol/L (136-145); Total Bilirubin 0.3 mg/dL (0.15-1.2)
[2024-10-06 23:30] VITALS: PULSE 74; O2SAT 96
[2024-10-06 23:45] VITALS: BP 125/75; PULSE 76; O2SAT 92
[2024-10-06 23:58] VITALS: BP 138/63; PULSE 76; O2SAT 93
[2024-10-07 00:15] VITALS: BP 118/65; PULSE 76; O2SAT 91
[2024-10-07 00:57] VITALS: BP 138/63; PULSE 79; O2SAT 93
== END 2024-10-07 00:58 | disposition home or self-care (01) ==
PROVIDERS: Emergency Provider Family Medicine; PCP Family Medicine
DX: I49.3 Ventricular premature depolarization (principal); R00.2 Palpitations; Z79.84 Long term (current) use of oral hypoglycemic drugs; Z87.891 Personal history of nicotine dependence; E11.9 Type 2 diabetes mellitus without complications; E78.5 Hyperlipidemia, unspecified
CPT/HCPCS: 71045; 80053; 83735; 85025; 93005; 99285; J3475

== ENCOUNTER → 2024-11-09 14:36 | Outpatient (BNVA) | payer OTHER, SELFPAY | PROVIDERS: PCP Family Medicine; Visit Provider Internal Medicine Cardiovascular Disease | DX: I48.0 Paroxysmal atrial fibrillation (principal); I10 Essential (primary) hypertension; Z87.891 Personal history of nicotine dependence | CPT/HCPCS: 99214 ==

== ENCOUNTER → 2024-11-14 08:47 | Outpatient (BNVA) | payer OTHER, SELFPAY | PROVIDERS: PCP Family Medicine; Visit Provider Student in an Organized Health Care Education/Training Program | DX: M17.11 Unilateral primary osteoarthritis, right knee (principal) | CPT/HCPCS: 20610; 73560; 73565; 99204; J3301; J9999 ==

== ENCOUNTER 2024-12-08 10:32 | Inpatient (IN) | payer OTHER, SELFPAY ==
--- OUTSIDE RECORDS SUMMARY | 2024-11-14 09:01 | XMS_ITS | Encounter Summary ---
Author Name [facility] Organization [facility] Address [address] [place] [address] Care Team Providers Care Clinical Support Manager Name Role Phone ADANJoseGARY Primary Care Provider Unavailabl e Selected Encounter This section includes the information on record at [place] for the Encounter. Date/Time Encounter Type Encounter Description Reason Pro vider Source Nov 14, 2024 02:01 PM Outpatient Encounter PRIMARY CARE/MEDICINE IHE Encounter Template Text not used by [place] Plan of Treatment: Future Appointments (+ 6 months) and Future Tests (+/- 45 days) The Plan of Treatment section includes future care activities for the patient from all [place] treatmentfacilities. This section includes future appointments and future orders which are active, pending or scheduled. Active, Pending, and Scheduled Orders This section includes a listing of several types of active, pending, and scheduled orders, including clinic medications orders, diagnostic test orders, procedure orders and consult orders; where the start date of the order is 45 days before the date of the Encounter or 45 days after the date of theEncounter. The data comes from all [place] treatment facilities. Test Date/Time Test Type Test Details Facility Name Nov 02, 2024 12:00 AM Laboratory - Chemistry Order CBC BLOOD [facility] Nov 02, 2024 12:00 AM Laboratory - Chemistry Order COMPREHENSIVE METABOLIC PANEL GREEN LI/HEP BLD/PLAS PLASMA [facility] Nov 02, 2024 12:00 AM Laboratory - Chemistry Order B12 GOLD/RED SST [facility] Nov 02, 2024 12:00 AM Laboratory - Chemistry Order FOLATE (PB) GOLD/RED [facility] Nov 02, 2024 12:00 AM Laboratory - Chemistry Order HGA1C BLOOD [facility] Nov 02, 2024 12:00 AM Laboratory - Chemistry Order CHOLESTEROL PANEL (PB) GREEN LI/HEP BLD/PLAS PLAS[facility] Nov 02, 2024 12:00 AM Laboratory - Chemistry Order VITAMIN D, 25-HYDROXY GOLD/RED [facility] Nov 02, 2024 12:00 AM Laboratory - Chemistry Order URINE ALBUMIN PROFILE-ih (PB) URINE,[facility] Nov 02, 2024 12:00 AM Laboratory - Chemistry Order PROST. SPECIFIC AG.(PB-STL) GOLD/RED [facility] Nov 02, 2024 12:00 AM Laboratory - Chemistry Order TSH (MA-PB) GOLD/RED [facility] Social History: Smoking Status (Most current) and Tobacco Use (All prior to encounter date) This section includes the most current, and the historical, smoking and tobacco- related health factors from the [place] facility where the Encounter took place. Current Smoking Status This section includes the most current smoking, or tobacco-related health factor, from the [place] facility where the Encounter took place. Date/Time Current Smoking Status Comment [facility] Oct 18, 2024 10:01 AM VA-TOBACCO USE FORMER CIGARETTES [facility] Tobacco Use History This section includes a history of the smoking, or tobacco-related health factors, that were collected on or before the date of the Encounter. The data comes from the [place] facility where the Encounter took place. Date/Time Smoking Status/Tobac co Use Comment Facility Oct 18, 2024 10:01 AM VA-TOBACCO USE FOR RADHA CIGARETTES [facility] Nov 03, 2023 11:31 AM VA-TOBACCO FORMER USER [facility] Nov 03, 2023 11:31 AM VA-TOBACCO QUIT 5 TO < 15 YRS [facility] Apr 24, 2022 10:30 AM VA-TOBACCO FORMER USER [facility] Apr 24, 2022 10:30 AM VA-TOBACCO QUIT 15 YRS OR MORE [facility] Dec 26, 2019 08:30 AM VA-TOBACCO FORMER USER [facility] Dec 26, 2019 08:30 AM VA-TOBACCO QUIT 5 TO < 15 YRS [facility] Apr 04, 2019 11:11 AM CURRENT NON-TOBACC O USER-HX OF USE [facility] September 09, 2018 10:52 AM CURRENT NON-TOBACC O USER-HX OF USE [facility] September 09, 2018 10:52 AM CURRENT TOBACCO USER [facility] Apr 15, 2018 09:07 AM CURRENT NON-TOBACC O USER-HX OF USE [facility] Apr 15, 2018 08:36 AM CURRENT NON-TOBACC O USER-HX OF USE [facility] Aug 10, 2017 09:46 AM QUIT TOBACCO >12 M O & <7 YRS AGO [facility] Dec 02, 2016 08:43 AM QUIT TOBACCO >12 M O & <7 YRS AGO [facility] Feb 26, 2015 10:35 AM QUIT TOBACCO >12 M O & <7 YRS AGO [facility] Jan 01, 2014 01:34 PM QUIT TOBACCO IN TH E LAST 12 MONTHS [facility] Jul 27, 2012 01:14 PM CURRENT TOBACCO USER [facility] Jul 27, 2012 01:14 PM TOBACCO OFFERED PT MEDS (PROVIDER) [facility] Jul 27, 2012 01:[address] [facility] Jul 27, 2012 01:14 [facility] Mar 25, 2010 02:36 PM CURRENT TOBACCO USER [facility] Mar 25, 2010 02:36 PM TOBACCO OFFERED PT MEDS (PROVIDER) will start on bupropion [facility] Mar 25, 2010 02:[address] [facility] declined [facility] Nov 16, 2006 02:41 PM CURRENT TOBACCO USER [facility] Nov 16, 2006 02:41 PM TOBACCO MEDS OFFER ED BUT DECLINED [facility] Oct 21, 2004 01:15 PM CURRENT TOBACCO USER [facility] Jun 23, 2004 10:31 AM CURRENT NON-TOBACC O USER-HX OF USE l pack daily [facility] Mar 09, 2002 01:15 PM TOB-DECLINES SMOKI NG CESSATION REFERRAL [facility] Mar 09, 2002 01:15 PM TOB-SMOKES OR USES TOBACCO PRODUCTS 1 [facility] Encounter Notes: All associated encounter notes This section contains the clinical notes associated to the Encounter. Date/Time Encounter Note(s) Provider Source Nov 14, 2024 10:06 PM GENERAL MEDICINE N OTE: LOCAL TITLE: General Note PB STANDARD TITLE: GENERAL MEDICINE NOTE DATE OF NOTE: NOV 14, 2024@22:06 ENTRY DATE: NOV 14, 2024@22:06:14 AUTHOR: GARY GAY EXP COSIGNER: URGENCY: STATUS: COMPLETED General Note PB Has ADDENDA Please cancel patient's appointment he did not come in today. /adalberto/ GARY GAY MD Signed: 11/14/2024 22:06 Receipt Acknowledged By: 11/15/2024 10:29 /adalberto/ Simon Waldron Lead Mat Weaver 11/15/2024 ADDENDUM STATUS: COMPLETED this author attempted to contact the veterant to reschedule the 's no- showed appointment. The did not answer his phone and a message was left for the to return the clinic's phone call. A no-showed letter was mailed this date. Additionally, per the scheduling directive, this is not a high risk clinic and the no-showed for his appointment. Therefore, the RTC/APPTs are being dispositioned this date. /adalberto/ Simon Waldron Lead Mat Weaver Signed: 11/15/2024 10:32 Receipt Acknowledged By: * AWAITING SIGNATURE * [facility]
[2024-12-08] VITALS (12 sets, daily range): BP systolic 88–111; BP diastolic 49–77; PULSE 78–160; RESP 12–16; TEMP 36.6–37.5; O2SAT 93–98
--- OUTSIDE RECORDS SUMMARY | 2024-12-08 05:40 | XMS_ITS | Continuity of Care Document ---
Author Name [facility] Organization [facility] Care Team Providers Care Drying Supervisor Name Role Phone [facility] Unavailable Unavailable Problems Combined list of problems from Department of Defense and Veterans Affairs facilities. It does not include entries that were removed or entered in error. Problem Status Onset Date Problem Type Date of Resolution Comments Source AF - Atrial fibrillation Active Condition Feb 04, 2023 En tered By: GARY GAY Comment: pt said cardiology recommends to stop apixaban, waiting for cariology noteFeb 08, 2023 Entered By: GARY GAY Comment: Event monitor no arrhythmias correlated with patient episodes. No significant bradycardia or tacky arrhythmias. No episodes of atrial fibrillation. : Dictated by cardiology on 01/29/2023Oct 2022 Entered By: GARY GAY Comment: Cardiology note 12/22/2022 reviewed. Patient wants to come off Eliquis, cardiology recommends plant controller Dr. Leary for ablation. Patient declined to proceed with it. [place] [facility] Anxiety Active Condition [place] [facility] Back pain (SNOMED CT 055191344) Active Condition [place] [facility] Chronic obstructive lung disease Active Condition Apr 16, 2022 En tered By: GARY GAY Comment: by ldct [place] [facility] Degeneration of lumbar intervertebral disc Active Condition [place] [facility] DM - Diabetes mellitus (SNOMED CT 58478654) Active Condition [place] [facility] Elevated blood-pressure reading without diagnosis of hypertension Active Condition [place] [facility] Ex-tobacco user (SNOMED CT 259119216) Active Condition [place] [facility] Gout Active Condition [place] [facility] heel pian Active Condition May 04 Entered By: GARY GAY Comment: heel spur, podiatry [place] [facility] HLD - Hyperlipidemia Active Condition [place] [facility] Knee joint pain (SNOMED CT 98016174) Active Condition [place] [facility] Lumbar segmental dysfunction Active Condition [place] [facility] OSTEOARTHROS NOS-L/LEG Active Condition [place] [facility] OSTEOARTHROS NOS-PELVIS Active Condition [place] [facility] OSTEOARTHROSIS-MU LT SITE Active Condition [place] [facility] Pain in right foot Active Condition Jun 11, 2022 En tered By: GARY GAY Comment: Resolved, patient states is not from gout. 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 Active Condition [place] [facility] ACUTE OTITIS EXTERNA NEC Inactive Condition 11/03/2023 [place] [facility] Laboratory Procedures (ICD-9-CM V72.6) Inactive Condition 07/05/2020 [place] [facility] PILONIDAL CYST W ABSCESS Inactive Condition 11/03/2023 [place] [facility] Spasm of back muscles Inactive Condition 11/03/2023 [place] [facility] Diagnosis: ICD-10-CM R03.0 Elevated blood-pressure reading, w/o diagnosis of htn Active Diagnosis [facility] Diagnosis: ICD-10-CM E78.5 Hyperlipidemia, unspecified Active Diagnosis [facility] Diagnosis: ICD-10-CM R09.81 Nasal congestion Active Diagnosis [facility] Diagnosis: ICD-10-CM J01.90 Acute sinusitis, unspecified Active Diagnosis [facility] Diagnosis: ICD-10-CM J01.80 Other acute sinusitis Active Diagnosis [facility] Diagnosis: ICD-10-CM M79.675 Pain in left toe(s) Active Diagnosis [facility] Diagnosis: ICD-10-CM L60.0 Ingrowing nail Active Diagnosis [facility] Diagnosis: ICD-10-CM K02.63 Dental caries on smooth surface penetrating into pulp Active Diagnosis [facility] Diagnosis: ICD-10-CM E11.9 Type 2 diabetes mellitus without complications Active Diagnosis [facility] Diagnosis: ICD-10-CM Z00.01 Encounter for general adult medical exam w abnormal findings Active Diagnosis [facility] Diagnosis: ICD-10-CM R53.83 Other fatigue Active Diagnosis [facility] Medications Combined list of outpatient medications from Department of Defense and Veterans Affairs facilities.Medications provided include 1) outpatient medications from the last 15 months, and 2) patient-reported medications. Medication Details Route Status Patient Instructions Prescription Expires Prescription Number Last Dispense Date Ordering Provider Order Date Order Qty Source ALPHA-LIPOI C ACID CAP/TAB TAKE 1 CAP/TAB BY MOUTH TWICE A DAY ORAL ACTIVE DIAZ CORONEL W 2023 [facility] AMOXICILLIN TRIHYDRATE 875MG/CLAVU LANATE K 125MG TAB TAKE 1 TABLET BY MOUTH TWICE A DAY FOR SINUS INFECTIO N TAKE WITH FOOD. TAKE UNTIL GONE UNLESS OTHERWIS E DIRECTED . TAKE WITH FOOD. TAKE UNTIL GONE UNLESS OTHERWIS E DIRECTED . ORAL 09/22/2024 [id number] 5 SOPHIA GAY R 2024 14 [facility] ASPIRIN 81MG TAB,CHEWABL E CHEW AND SWALLOW ONE TABLET BY MOUTH ONCE A DAY FOR CARDIOVA SCULAR DISEASE (TAKE WITH FOOD) ORAL 11/03/2024 [id number] 5 SOPHIA GAY R [address] [place] [address] [facility] DOCUSATE CA 240MG CAP TAKE 1 CAPSULE BY MOUTH TWICE A DAY ORAL ACTIVE DIAZ CORONEL W 2024 [facility] EMPAGLIFLOZ IN 25MG TAB TAKE ONE TABLET BY MOUTH ONCE A DAY FOR DIABETES ORAL DISCONT INUED BY PROVIDE R 12/17/2024 [id number] 4 DIAZ CORONEL W [address] [place] [address] [facility] FEXOFENADIN E HCL 180MG TAB TAKE ONE TABLET BY MOUTH EVERY MORNING FOR ALLERGIC RHINITIS ORAL 11/03/2024 [id number] 5 SOPHIA GAY R 2023 90 [facility] FISH OIL 1000MG (500MG DHA/EPA) CAP,ORAL TAKE 2 CAPSULES BY MOUTH THREE TIMES A DAY WITH MEALS ORAL ACTIVE DIAZ CORONEL Gigi 2023 [facility] FLUTICASONE PROPIONATE 50MCG/SPRAY SOLN,NASAL, 16GM INSTILL 1 SPRAY IN NOSTRIL( S) ONCE A DAY FOR RHINITIS (MUST BE USED DIRECTED FOR MINIMUM OF 21 DAYS TO PROVIDE ADEQUATE BENEFITS ) NASAL ACTIVE 08/24/2025 [id number] 5 SOPHIA GAY R 2024 1 [facility] GLIPIZIDE 5MG TAB TAKE ONE TABLET BY MOUTH TWO TIMES A DAY BEFORE MEALS FOR DIABETES TAKE 30 MINUTES BEFORE EATING. ORAL ACTIVE 10/19/2025 [id number] 5 SOPHIA GAY R 2024 180 [facility] GLIPIZIDE 5MG TAB TAKE ONE TABLET BY MOUTH TWO TIMES A DAY BEFORE MEALS FOR DIABETES . TAKE 30 MINUTES BEFORE EATING. ORAL 08/17/2024 [id number] 5 SOPHIA GAY R 2023 180 [facility] LEVOCARNITI NE 500MG CAP TAKE 2 CAPSULES BY MOUTH ONCE A DAY ORAL ACTIVE DIAZ CORONEL Gigi 2023 [facility] METFORMIN HCL 1000MG TAB TAKE ONE TABLET BY MOUTH TWICE A DAY WITH MEALS FOR BLOOD SUGAR CONTROL. TAKE WITH FOOD. AVOID ALCOHOL. DISCONTI NUE BEFORE GETTING XRAY DYE. ORAL DISCONT INUED BY PROVIDE R 08/17/2024 [id number] 4 SOPHIA GAY R 2023 180 [facility] METFORMIN HCL 500MG 24HR TAB,SA TAKE TWO TABLETS BY MOUTH TWICE A DAY WITH MEALS FOR DIABETES TAKE WITH FOOD. AVOID ALCOHOL. DISCONTI NUE BEFORE GETTING XRAY DYE. ORAL ACTIVE 09/15/2025 [id number] 5 DIAZ CORONEL 2024 360 [facility] METFORMIN HCL 500MG 24HR TAB,SA TAKE TWO TABLETS BY MOUTH TWICE A DAY WITH MEALS FOR DIABETES TAKE WITH FOOD. AVOID ALCOHOL. DISCONTI NUE BEFORE GETTING XRAY DYE. ORAL DISCONT INUED (EDIT) 12/17/2024 [id number] 5 DIAZ CORONEL 2023 120 [place] [facility] METOPROLOL SUCCINATE 50MG TAB,SA TAKE ONE-HALF TABLET BY MOUTH ONCE A DAY FOR HIGH BLOOD PRESSURE SWALLOW WHOLE, DO NOT CRUSH OR CHEW (TABLETS MAY BE CUT IN HALF). ORAL ACTIVE 02/24/2025 [id number] 5 DIAZ CORONEL 2023 45 [place] [facility] METOPROLOL TARTRATE 50MG TAB TAKE ONE TABLET BY MOUTH EVERY MORNING AND TAKE ONE-HALF TABLET EVERY EVENING TAKE WITH OR IMMEDIAT SAMANTHA FOLLOWIN G FOOD ORAL DISCONT INUED BY ED R 11/03/2024 [id number] 4 SOPHIA GAY 2023 135 [facility] METOPROLOL TARTRATE 50MG TAB TAKE ONE TABLET BY MOUTH EVERY MORNING AND TAKE ONE-HALF TABLET EVERY EVENING TAKE WITH OR IMMEDIAT SAMANTHA FOLLOWIN G FOOD ORAL DISCONT INUED 02/05/2024 [id number] 4 SOPHIA GAY 2022 135 [facility] MULTIVITAMI N/MINERALS ANTIOXIDANT CAP/TAB TAKE 1 CAP/TAB BY MOUTH ONCE A DAY ORAL ACTIVE DIAZ CORONEL 2023 [place] [facility] PSYLLIUM SUGAR FREE PWDR,ORAL MIX AND DRINK 1 ROUNDED TABLESPO ONFUL BY MOUTH ONCE A DAY FOR FIBER SUPPLEME NTATION MIX IN GLASS OF WATER/JU ICE. FLAVOR SUBSTITU TIONS MAY OCCUR AND SPECIFIC VARIETIE S WILL NOT BE PROVIDED . ORAL ACTIVE 06/09/2025 [id number] 5 DIAZ CORONEL Gigi 2024 300 [place] [facility] ROSUVASTATI N CA 10MG TAB TAKE ONE-HALF TABLET BY MOUTH EVERY EVENING FOR HIGH CHOLESTE ROL ORAL 11/03/2024 [id number] 5 SOPHIA GAY 2023 45 [place] [facility] SEMAGLUTIDE 0.25MG/0.37 5ML INJ,SOLN,PE N,3ML INJECT 0.5MG UNDER THE SKIN EVERY WEEK FOR DIABETES SUBCUT ANEOUS DISCONT INUED (EDIT) 12/29/2024 [id number] 4 DIAZ CORONEL Gigi 2023 1 [facility] SEMAGLUTIDE 0.25MG/0.37 5ML INJ,SOLN,PE N,3ML INJECT 0.25MG UNDER THE SKIN EVERY WEEK FOR 30 DAYS, THEN INJECT 0.5MG EVERY WEEK FOR DIABETES SUBCUT ANEOUS DISCONT INUED 12/29/2024 [id number] 4 DIAZ CORONEL Gigi 2023 1 [facility] SEMAGLUTIDE 1MG/0.75ML INJ,SOLN,PE N,3ML INJECT 1MG UNDER THE SKIN EVERY WEEK FOR DIABETES SUBCUT ANEOUS ACTIVE 02/24/2025 [id number] 5 DIAZ CORONEL Gigi 2023 3 [facility] SITAGLIPTIN (EQV-ZITUVI O) 100MG TAB TAKE ONE TABLET BY MOUTH ONCE A DAY FOR DIABETES ORAL DISCONT INUED BY PROVIDE R 12/17/2024 [id number] BERNA DIAZ Yu 2023 90 [facility] SITAGLIPTIN (EQV-ZITUVI O) 50MG TAB TAKE ONE TABLET BY MOUTH ONCE A DAY FOR DIABETES ORAL DISCONT INUED (EDIT) 11/03/2024 [id number] 4 SOPHIA GAY [address] [place] [address] [facility] Allergies, Adverse Reactions, Alerts Combined list of allergies from Department of Defense and Veterans Affairs facilities. It does not include entries that were removed or entered in error. Substance Category Reaction Severity Reaction type Status Date Reported Comments Source EMPAGLIFLOZIN Propensity to adverse reactions to drug (finding) Nausea and vomiting MODERATE active 4 [facility] LIPITOR Propensity to adverse reactions to drug (finding) Cramp MODERATE active 6 [facility] LOPID Propensity to adverse reactions to drug (finding) Weakness present, Sore throat symptom active 3 [facility] SITAGLIPTIN Propensity to adverse reactions to drug (finding) Nausea and vomiting MODERATE active 4 [facility] Immunizations Combined list of available immunizations from the Department of [facility] and Veterans Affairs facilities. 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 Status Comments Source TDAP 2012 115 complet ed Right Deltoid [facility] TD(ADULT) UNSPECIFIED FORMULATION 1 2002 139 complet ed HISTORICA L INFORMATI ON - FROM OTHER REGISTRY, [facility] INFLUENZA, UNSPECIFIED FORMULATION 2001 88 complet ed [facility] INFLUENZA, UNSPECIFIED FORMULATION 2000 88 complet ed [facility] TD(ADULT) UNSPECIFIED FORMULATION 1991 139 complet ed [facility] Results Combined list of recent chemistry, hematology and other laboratory results from Department of Defense and Veterans Affairs, ranging from 15 months to all on record, depending upon the facility. Order Name Results Value Reference Range Date Interpretation Specimen Comments Source DIRECT LDL (MA-PB) CHOLESTEROL IN LDL [MASS/VOLUME] IN SERUM OR PLASMA BY DIRECT ASSAY 116.8 mg/dL 0 - 99.9 09/11 H Specimen Type: PLASMA No comment entered. Ordering Provider: DIAZ CORONEL Report Released Date/Time : Jun 08, 2024 11:30 AM Reporting Lab: [place] [facility] [address] [place] [address] Performin g Lab: [place] [facility] [address] [place] [address] [facility] VITAMIN D, 25-HYDROXY 25-HYDROXYVIT DEVINE D3 [MASS/VOLUME] IN SERUM OR PLASMA 49.0 ng/mL 30 - 96 09/11 Specimen Type: SERUM No comment entered. Ordering Provider: DIAZ CORONEL Report Released Date/Time : Jun 08, 2024 11:30 AM Reporting Lab: [place] [facility] [address] [place] [address] Performin g Lab: [place] [facility] [address] [place] [address] [facility] RHEUMATOID FACTOR (PB) RHEUMATOID FACTOR [UNITS/VOLUME ] IN SERUM OR PLASMA <13[IU ]/mL 0 - 30 09/11 L Specimen Type: SERUM No comment entered. Ordering Provider: DIAZ CORONEL Report Released Date/Time : Jun 08, 2024 11:30 AM Reporting Lab: [place] [facility] [address] [place] [address] Performin g Lab: [place] [facility] [address] [place] [address] [facility] CHOLESTEROL PANEL (PB) CHOLESTEROL [MASS/VOLUME] IN SERUM OR PLASMA 163 mg/dL 0 - 200 09/11 Specimen Type: PLASMA No comment entered. Ordering Provider: DIAZ CORONEL Report Released Date/Time : Jun 08, 2024 11:30 AM Reporting Lab: [place] [facility] [address] [place] [address] Performin g Lab: [place] [facility] [address] [place] [address] [facility] CHOLESTEROL PANEL (PB) TRIGLYCERIDE [MASS/VOLUME] IN SERUM OR PLASMA 138 mg/dL 0 - 150 09/11 Specimen Type: PLASMA No comment entered. Ordering Provider: DIAZ CORONEL Report Released Date/Time : Jun 08, 2024 11:30 AM Reporting Lab: [place] [facility] [address] [place] [address] Performin g Lab: [place] [facility] [address] [place] [address] [facility] CHOLESTEROL PANEL (PB) CHOLESTEROL IN LDL [MASS/VOLUME] IN SERUM OR PLASMA BY CALCULATION 105.4 mg/dL 09/11 Specimen Type: PLASMA No comment entered. Ordering Provider: DIAZ CORONEL Report Released Date/Time : Jun 08, 2024 11:30 AM Reporting Lab: [place] [facility] [address] [place] [address] Performin g Lab: [place] [facility] [address] [place] [address] [facility] CHOLESTEROL PANEL (PB) CHOLESTEROL IN HDL [MASS/VOLUME] IN SERUM OR PLASMA 30.0 mg/dL 40 09/11 L Specimen Type: PLASMA No comment entered. Ordering Provider: DIAZ CORONEL Report Released Date/Time : Jun 08, 2024 11:30 AM Reporting Lab: [place] [facility] [address] [place] [address] Performin g Lab: [place] [facility] [address] [place] [address] [facility] CHOLESTEROL PANEL (PB) CHOLESTEROL IN HDL/CHOLESTER OL.TOTAL [MASS RATIO] IN SERUM OR PLASMA 18.4 25 09/11 Specimen Type: PLASMA No comment entered. Ordering Provider: DIAZ CORONEL Report Released Date/Time : Jun 08, 2024 11:30 AM Reporting Lab: [place] [facility] [address] [place] [address] Performin g Lab: [place] [facility] [address] [place] [address] [facility] FOLATE (PB) FOLATE [MASS/VOLUME] IN SERUM OR PLASMA 11.8 ng/mL 7 - 20 09/11 Specimen Type: SERUM No comment entered. Ordering Provider: DIAZ CORONEL Report Released Date/Time : Jun 08, 2024 11:30 AM Reporting Lab: [place] [facility] [address] [place] [address] Performin g Lab: [place] [facility] [address] [place] [address] [facility] B12 COBALAMIN (VITAMIN B12) [MASS/VOLUME] IN SERUM OR PLASMA 513 pg/mL 213 - 816 09/11 Specimen Type: SERUM No comment entered. Ordering Provider: DIAZ CORONEL Report Released Date/Time : Jun 08, 2024 11:30 AM Reporting Lab: [place] [facility] [address] [place] [address] Performin g Lab: [place] [facility] [address] [place] [address] [facility] HGA1C HEMOGLOBIN A1C/HEMOGLOBI N.TOTAL IN BLOOD 6.2 4.0 - 6.0 09/11 H Specimen Type: BLOOD No comment entered. Ordering Provider: DIAZ CORONEL Report Released Date/Time : Jun 08, 2024 11:30 AM Reporting Lab: [place] [facility] [address] [place] [address] Performin g Lab: [place] [facility] [address] [place] [address] [facility] COMPREHENSI VE METABOLIC PANEL CREATININE [MASS/VOLUME] IN SERUM OR PLASMA 0.99 mg/dL 0.7 - 1.3 09/11 Specimen Type: PLASMA No comment entered. Ordering Provider: DIAZ CORONEL Report Released Date/Time : Jun 08, 2024 11:30 AM Reporting Lab: [place] [facility] [address] [place] [address] Performin g Lab: [place] [facility] [address] [place] [address] [facility] COMPREHENSI VE METABOLIC PANEL UREA NITROGEN [MASS/VOLUME] IN SERUM OR PLASMA 13 mg/dL 9 - 25 09/11 Specimen Type: PLASMA No comment entered. Ordering Provider: DIAZ CORONEL Report Released Date/Time : Jun 08, 2024 11:30 AM Reporting Lab: [place] [facility] [address] [place] [address] Performin g Lab: [place] [facility] [address] [place] [address] [facility] COMPREHENSI VE METABOLIC PANEL GLUCOSE [MASS/VOLUME] IN SERUM OR PLASMA 111 mg/dL 72 - 99 09/11 H Specimen Type: PLASMA No comment entered. Ordering Provider: DIAZ CORONEL Report Released Date/Time : Jun 08, 2024 11:30 AM Reporting Lab: [place] [facility] [address] [place] [address] Performin g Lab: [place] [facility] [address] [place] [address] [facility] COMPREHENSI VE METABOLIC PANEL SODIUM [MOLES/VOLUME ] IN SERUM OR PLASMA 139 meq/L 136 - 145 09/11 Specimen Type: PLASMA No comment entered. Ordering Provider: DIAZ CORONEL Report Released Date/Time : Jun 08, 2024 11:30 AM Reporting Lab: [place] [facility] [address] [place] [address] Performin g Lab: [place] [facility] [address] [place] [address] [place] [facility] COMPREHENSI VE METABOLIC PANEL POTASSIUM [MOLES/VOLUME ] IN SERUM OR PLASMA 4.1 meq/L 3.5 - 5 09/11 Specimen Type: PLASMA No comment entered. Ordering Provider: DIAZ CORONEL Report Released Date/Time : Jun 08, 2024 11:30 AM Reporting Lab: [place] [facility] [address] [place] [address] Performin g Lab: [place] [facility] [address] [place] [address] [place] [facility] COMPREHENSI VE METABOLIC PANEL CHLORIDE [MOLES/VOLUME ] IN SERUM OR PLASMA 105 meq/L 98 - 107 09/11 Specimen Type: PLASMA No comment entered. Ordering Provider: DIAZ CORONEL Report Released Date/Time : Jun 08, 2024 11:30 AM Reporting Lab: [place] [facility] [address] [place] [address] Performin g Lab: [place] [facility] [address] [place] [address] [facility] COMPREHENSI VE METABOLIC PANEL CARBON DIOXIDE, TOTAL [MOLES/VOLUME ] IN SERUM OR PLASMA 23 meq/L 22 - 31 09/11 Specimen Type: PLASMA No comment entered. Ordering Provider: DIAZ CORONEL Report Released Date/Time : Jun 08, 2024 11:30 AM Reporting Lab: [place] [facility] [address] [place] [address] Performin g Lab: [place] [facility] [address] [place] [address] [place] COMPREHENSI VE METABOLIC PANEL CALCIUM [MASS/VOLUME] IN SERUM OR PLASMA 9.2 mg/dL 8.4 - 10.4 09/11 Specimen Type: PLASMA No comment entered. Ordering Provider: DIAZ CORONEL Report Released Date/Time : Jun 08, 2024 11:30 AM Reporting Lab: [place] [facility] [address] [place] [address] Performin g Lab: [place] [facility] [address] [place] [address] [facility] COMPREHENSI VE METABOLIC PANEL PROTEIN [MASS/VOLUME] IN SERUM OR PLASMA 7.4 g/dL 6 - 8.6 09/11 Specimen Type: PLASMA No comment entered. Ordering Provider: DIAZ CORONEL Report Released Date/Time : Jun 08, 2024 11:30 AM Reporting Lab: [place] [facility] [address] [place] [address] Performin g Lab: [place] [facility] [address] [place] [address] [facility] COMPREHENSI VE METABOLIC PANEL ALBUMIN [MASS/VOLUME] IN SERUM OR PLASMA 4.5 g/dL 3.4 - 5 09/11 Specimen Type: PLASMA No comment entered. Ordering Provider: DIAZ CORONEL Report Released Date/Time : Jun 08, 2024 11:30 AM Reporting Lab: [place] [facility] [address] [place] [address] Performin g Lab: [place] [facility] [address] [place] [address] [facility] COMPREHENSI VE METABOLIC PANEL BILIRUBIN.TOT AL [MASS/VOLUME] IN SERUM OR PLASMA 0.9 mg/dL 0.2 - 1.2 09/11 Specimen Type: PLASMA No comment entered. Ordering Provider: DIAZ CORONEL Report Released Date/Time : Jun 08, 2024 11:30 AM Reporting Lab: [place] [facility] [address] [place] [address] Performin g Lab: [place] [facility] [address] [place] [address] [facility] COMPREHENSI VE METABOLIC PANEL ALKALINE PHOSPHATASE [ENZYMATIC ACTIVITY/VOLU ME] IN SERUM OR PLASMA 55 U/L 40 - 150 09/11 Specimen Type: PLASMA No comment entered. Ordering Provider: DIAZ CORONEL Report Released Date/Time : Jun 08, 2024 11:30 AM Reporting Lab: [place] [facility] [address] [place] [address] Performin g Lab: [place] [facility] [address] [place] [address] [facility] COMPREHENSI VE METABOLIC PANEL ASPARTATE AMINOTRANSFER ASE [ENZYMATIC ACTIVITY/VOLU ME] IN SERUM OR PLASMA 23 U/L 5 - 34 09/11 Specimen Type: PLASMA No comment entered. Ordering Provider: DIAZ CORONEL Report Released Date/Time : Jun 08, 2024 11:30 AM Reporting Lab: [place] [facility] [address] [place] [address] Performin g Lab: [place] [facility] [address] [place] [address] [facility] COMPREHENSI VE METABOLIC PANEL ALANINE AMINOTRANSFER ASE [ENZYMATIC ACTIVITY/VOLU ME] IN SERUM OR PLASMA 20 U/L 8 - 40 09/11 Specimen Type: PLASMA No comment entered. Ordering Provider: DIAZ CORONEL Report Released Date/Time : Jun 08, 2024 11:30 AM Reporting Lab: [place] [facility] [address] [place] [address] Performin g Lab: [place] [facility] [address] [place] [address] 8 [facility] COMPREHENSI VE METABOLIC PANEL GLOMERULAR FILTRATION RATE/1.73 SQ M.PREDICTED [VOLUME RATE/AREA] IN SERUM, PLASMA OR BLOOD BY CREATININE-BA SED FORMULA (CKD-EPI 2020) 89 09/11 Specimen Type: PLASMA No comment entered. Ordering Provider: DIAZ CORONEL Report Released Date/Time : Jun 08, 2024 11:30 AM Reporting Lab: [place] [facility] [address] [place] [address] Performin g Lab: [place] [facility] [address] [place] [address] 8 [facility] CBC LEUKOCYTES [#/VOLUME] IN BLOOD BY AUTOMATED COUNT 6.0 10*3/u L 3.6 - 11.2 09/11 Specimen Type: BLOOD No comment entered. Ordering Provider: DIAZ CORONEL Report Released Date/Time : Jun 08, 2024 11:30 AM Reporting Lab: [place] [facility] [address] [place] [address] Performin g Lab: [place] [facility] [address] [place] [address] [facility] CBC ERYTHROCYTES [#/VOLUME] IN BLOOD BY AUTOMATED COUNT 4.98 10*6/u L 4.10 - 5.70 09/11 Specimen Type: BLOOD No comment entered. Ordering Provider: DIAZ CORONEL Report Released Date/Time : Jun 08, 2024 11:30 AM Reporting Lab: [place] [facility] [address] [place] [address] Performin g Lab: [place] [facility] [address] [place] [address] [facility] CBC HEMOGLOBIN [MASS/VOLUME] IN BLOOD 15.2 g/dL 13.1 - 16.8 09/11 Specimen Type: BLOOD No comment entered. Ordering Provider: DIAZ CORONEL Report Released Date/Time : Jun 08, 2024 11:30 AM Reporting Lab: [place] [facility] [address] [place] [address] Performin g Lab: [place] [facility] [address] [place] [address] 8 [facility] CBC HEMATOCRIT [VOLUME FRACTION] OF BLOOD 44.3 38.2 - 48.4 09/11 Specimen Type: BLOOD No comment entered. Ordering Provider: DIAZ CORONEL Report Released Date/Time : Jun 08, 2024 11:30 AM Reporting Lab: [place] [facility] [address] [place] [address] Performin g Lab: [place] [facility] [address] [place] [address] 8 [facility] CBC MCV [ENTITIC VOLUME] BY AUTOMATED COUNT 89.0 fL 80.0 - 100.0 09/11 Specimen Type: BLOOD No comment entered. Ordering Provider: DIAZ CORONEL Report Released Date/Time : Jun 08, 2024 11:30 AM Reporting Lab: [place] [facility] [address] [place] [address] Performin g Lab: [place] [facility] [address] [place] [address] 8 [facility] CBC MCH [ENTITIC MASS] BY AUTOMATED COUNT 30.5 pg 27.0 - 34.0 09/11 Specimen Type: BLOOD No comment entered. Ordering Provider: DIAZ CORONEL Report Released Date/Time : Jun 08, 2024 11:30 AM Reporting Lab: [place] [facility] [address] [place] [address] Performin g Lab: [place] [facility] [address] [place] [address] 8 [facility] CBC MCHC [MASS/VOLUME] BY AUTOMATED COUNT 34.3 g/dL 33.0 - 36.0 09/11 Specimen Type: BLOOD No comment entered. Ordering Provider: DIAZ CORONEL Report Released Date/Time : Jun 08, 2024 11:30 AM Reporting Lab: [place] [facility] [address] [place] [address] Performin g Lab: [place] [facility] [address] [place] [address] [facility] CBC PLATELETS [#/VOLUME] IN BLOOD BY AUTOMATED COUNT 259 10*3/u L 150 - 400 09/11 Specimen Type: BLOOD No comment entered. Ordering Provider: DIAZ CORONEL Report Released Date/Time : Jun 08, 2024 11:30 AM Reporting Lab: [place] [facility] [address] [place] [address] Performin g Lab: [place] [facility] [address] [place] [address] 8 [facility] CBC PLATELET MEAN VOLUME [ENTITIC VOLUME] IN BLOOD BY AUTOMATED COUNT 11.6 fL 7.5 - 11.2 09/11 H Specimen Type: BLOOD No comment entered. Ordering Provider: DIAZ CORONEL Report Released Date/Time : Jun 08, 2024 11:30 AM Reporting Lab: [place] [facility] [address] [place] [address] Performin g Lab: [place] [facility] [address] [place] [address] [facility] CBC ERYTHROCYTE DISTRIBUTION WIDTH [RATIO] BY AUTOMATED COUNT 12.9 11.8 - 15.1 09/11 Specimen Type: BLOOD No comment entered. Ordering Provider: DIAZ CORONEL Report Released Date/Time : Jun 08, 2024 11:30 AM Reporting Lab: [place] [facility] [address] [place] [address] Performin g Lab: [place] [facility] [address] [place] [address] 8 [facility] CBC LYMPHOCYTES/1 00 LEUKOCYTES IN BLOOD BY AUTOMATED COUNT 35.8 09/11 Specimen Type: BLOOD No comment entered. Ordering Provider: DIAZ CORONEL Report Released Date/Time : Jun 08, 2024 11:30 AM Reporting Lab: [place] [facility] [address] [place] [address] Performin g Lab: [place] [facility] [address] [place] [address] [facility] CBC MONOCYTES/100 LEUKOCYTES IN BLOOD BY AUTOMATED COUNT 7.3 09/11 Specimen Type: BLOOD No comment entered. Ordering Provider: DIAZ CORONEL Report Released Date/Time : Jun 08, 2024 11:30 AM Reporting Lab: [place] [facility] [address] [place] [address] Performin g Lab: [place] [facility] [address] [place] [address] 8 [facility] CBC NEUTROPHILS/1 00 LEUKOCYTES IN BLOOD BY AUTOMATED COUNT 45.1 09/11 Specimen Type: BLOOD No comment entered. Ordering Provider: DIAZ CORONEL Report Released Date/Time : Jun 08, 2024 11:30 AM Reporting Lab: [place] [facility] [address] [place] [address] Performin g Lab: [place] [facility] [address] [place] [address] [facility] CBC EOSINOPHILS/1 00 LEUKOCYTES IN BLOOD BY AUTOMATED COUNT 9.3 09/11 Specimen Type: BLOOD No comment entered. Ordering Provider: DIAZ CORONEL Report Released Date/Time : Jun 08, 2024 11:30 AM Reporting Lab: [place] [facility] [address] [place] [address] Performin g Lab: [place] [facility] [address] [place] [address] [facility] CBC BASOPHILS/100 LEUKOCYTES IN BLOOD BY AUTOMATED COUNT 2.3 09/11 Specimen Type: BLOOD No comment entered. Ordering Provider: DIAZ CORONEL Report Released Date/Time : Jun 08, 2024 11:30 AM Reporting Lab: [place] [facility] [address] [place] [address] Performin g Lab: [place] [facility] [address] [place] [address] [facility] CBC LYMPHOCYTES [#/VOLUME] IN BLOOD BY AUTOMATED COUNT 2.15 10*3/u L 0.77 - 4.50 09/11 Specimen Type: BLOOD No comment entered. Ordering Provider: DIAZ CORONEL Report Released Date/Time : Jun 08, 2024 11:30 AM Reporting Lab: [place] [facility] [address] [place] [address] Performin g Lab: [place] [facility] [address] [place] [address] 8 [facility] CBC MONOCYTES [#/VOLUME] IN BLOOD BY AUTOMATED COUNT 0.44 10*3/u L 0.19 - 0.8 09/11 Specimen Type: BLOOD No comment entered. Ordering Provider: DIAZ CORONEL Report Released Date/Time : Jun 08, 2024 11:30 AM Reporting Lab: [place] [facility] [address] [place] [address] Performin g Lab: [place] [facility] [address] [place] [address] [facility] CBC NEUTROPHILS [#/VOLUME] IN BLOOD BY AUTOMATED COUNT 2.70 10*3/u L 2.10 - 8.00 09/11 Specimen Type: BLOOD No comment entered. Ordering Provider: DIAZ CORONEL Report Released Date/Time : Jun 08, 2024 11:30 AM Reporting Lab: [place] [facility] [address] [place] [address] Performin g Lab: [place] [facility] [address] [place] [address] [facility] CBC EOSINOPHILS [#/VOLUME] IN BLOOD BY AUTOMATED COUNT 0.56 10*3/u L 0.00 - 0.60 09/11 Specimen Type: BLOOD No comment entered. Ordering Provider: DIAZ CORONEL Report Released Date/Time : Jun 08, 2024 11:30 AM Reporting Lab: [place] [facility] [address] [place] [address] Performin g Lab: [place] [facility] [address] [place] [address] [facility] CBC BASOPHILS [#/VOLUME] IN BLOOD BY AUTOMATED COUNT 0.14 10*3/u L 0.00 - 0.20 09/11 Specimen Type: BLOOD No comment entered. Ordering Provider: DIAZ CORONEL Report Released Date/Time : Jun 08, 2024 11:30 AM Reporting Lab: [place] [facility] [address] [place] [address] Performin g Lab: [place] [facility] [address] [place] [address] [facility] CBC IMMATURE GRANULOCYTES/ 100 LEUKOCYTES IN BLOOD BY AUTOMATED COUNT 0.2 09/11 Specimen Type: BLOOD No comment entered. Ordering Provider: DIAZ CORONEL Report Released Date/Time : Jun 08, 2024 11:30 AM Reporting Lab: [place] [facility] [address] [place] [address] Performin g Lab: [place] [facility] [address] [place] [address] 8 [facility] CBC IMMATURE GRANULOCYTES [#/VOLUME] IN BLOOD BY AUTOMATED COUNT 0.01 10*3/u L 0.00 - 0.05 09/11 Specimen Type: BLOOD No comment entered. Ordering Provider: DIAZ CORONEL Report Released Date/Time : Jun 08, 2024 11:30 AM Reporting Lab: [place] [facility] [address] [place] [address] Performin g Lab: [place] [facility] [address] [place] [address] [facility] HGA1C HEMOGLOBIN A1C/HEMOGLOBI N.TOTAL IN BLOOD 5.9 4.0 - 6.0 06/01 Specimen Type: BLOOD No comment entered. Ordering Provider: SOPHIA GAY Report Released Date/Time : Nov 03, 2023 12:02 PM Reporting Lab: [place] [facility] [address] [place] [address] Performin g Lab: [place] [facility] [address] [place] [address] [facility] Vital Signs Combined list of inpatient and outpatient Vital Signs from Department of Defense and Veterans Affairs, ranging from 12 months to all on record, depending upon the facility. Vital Sign Value Date Comments Source SYSTOLIC BLOOD PRESSURE 104 10/18/2024 10:07:00 [facility] DIASTOLIC BLOOD PRESSURE 71 10/18/2024 10:07:00 [facility] PULSE OXIMETRY 97 % 10/18/2024 10:07:00 [facility] WEIGHT 219.6 10/18/2024 10:07:00 [facility] BMI 29 kg/m2 10/18/2024 10:07:00 [facility] PAIN 4 10/18/2024 10:07:00 [facility] TEMPERATURE 97.9 10/18/2024 10:07:00 [facility] PULSE 74 10/18/2024 10:07:00 [facility] RESPIRATION 20 10/18/2024 10:07:00 [facility] SYSTOLIC BLOOD PRESSURE 102 08/23/2024 09:12:00 [place] [facility] DIASTOLIC BLOOD PRESSURE 69 08/23/2024 09:12:00 [place] [facility] TEMPERATURE 98 08/23/2024 09:12:00 [place] [facility] PULSE 72 08/23/2024 09:12:00 [place] [facility] SYSTOLIC BLOOD PRESSURE 119 06/16/2024 10:27:28 [place] [facility] DIASTOLIC BLOOD PRESSURE 82 06/16/2024 10:27:28 [place] [facility] PULSE OXIMETRY 97 06/16/2024 10:27:28 [facility] WEIGHT 230 06/16/2024 10:27:28 [place] [facility] BMI 30 kg/m2 06/16/2024 10:27:28 [place] [facility] PAIN 3 06/16/2024 10:27:28 [place] [facility] TEMPERATURE 98 06/16/2024 10:27:28 [place] [facility] PULSE 94 06/16/2024 10:27:28 [place] [facility] RESPIRATION 20 06/16/2024 10:27:28 [place] [facility] SYSTOLIC BLOOD PRESSURE 124 04/21/2024 08:24:01 [place] [facility] DIASTOLIC BLOOD PRESSURE 80 04/21/2024 08:24:01 [place] [facility] PULSE OXIMETRY 70 04/21/2024 08:24:01 [facility] WEIGHT 229.7 04/21/2024 08:24:01 [place] [facility] BMI 30 kg/m2 04/21/2024 08:24:01 [place] [facility] TEMPERATURE 98 04/21/2024 08:24:01 [place] [facility] PULSE 70 04/21/2024 08:24:01 [place] [facility] RESPIRATION 18 04/21/2024 08:24:01 [place] [facility] Encounters Combined list of: 1) Encounters from Department of Veterans Affairs facilities going backup to the last 18 months, not all VA inpatient encounters are included; 2) Encounters from the Department of Defense facilities going backup to 280 months. Location Location Details Encounter Type Encounter Number Reason For Visit Attending Provider ADM Date DC Date Status Disposition Source [facility] Outpatient Encounter [id number] 06/28 [facility]counter [id number] 06/30 [facility] Out[facility] Encounter [id number] 06/30 [facility] Encounter [id number] 07/04 [facility] Outpatient Encounter [id number] Eduar JEROME L 07/12 [facility] Outpatient Encounter [id number] 07/22 [facility] [place] [facility] Outpatient Encounter [id number] 07/26 [place] [facility] [place] [facility] Outpatient Encounter [id number] 08/04 [place] [facility] En[facility] [id number] 08/11 [facility] [place] [facility] Outpatient Encounter [id number] REAGAN DIAZ J 08/11 [place] [facility] En[facility] [id number] 08/24 [facility] Out[facility] Encounter [id number] 08[facility] [id number] 09/12 [facility] Outpatient Encounter [id number] 10/06 [facility] Outpatient Encounter [id number] 10/11 [facility] Outpatient Encounter [id number] 10/13 [facility] Outpatient Encounter [id number] 10/18 [facility] Outpatient Encounter [id number] 10/18 [facility] Outpatient Encounter [id number] 10/20 [facility] Outpatient Encounter [id number] 10/24 [facility] Outpatient Encounter [id number] 10/26 [facility] OFF/OP EST MAY X REQ PHY/QHP [id number] Diagnos is: ICD-10- CM R53.83 Other fatigue Patric JEROME 10/31 [facility] OFFICE O/P EST LOW 20 MIN [id number] Diagnos is: ICD-10- CM Z00.01 Encount er for general adult medical exam w GARY Silva 11/02 [facility] Outpatient Encounter [id number] 11/02 [facility] [place] [id number] Diagnos is: ICD-10- CM Z00.01 Encount er for general adult medical exam w abnorma l finding LISA Arriaza D 11/02 [facility] Outpatient Encounter [id number] 11/08 [facility] MTMS BY PHARM ADDL 15 MIN [id number] Diagnos is: ICD-10- CM E78.5 Hyperli pidemia , unspeci fied Patric CORONEL AIMEE W 11/09 [facility] Outpatient Encounter [id number] 11/11 [facility] Outpatient Encounter [id number] 11/22 [facility] Outpatient Encounter [id number] 11/30 [facility] En[facility] [id number] 12/05 [place] [facility] Outpatient Encounter [id number] 12/13 [facility] MTMS BY PHARM ADDL 15 MIN [id number] Diagnos is: ICD-10- CM E78.5 Hyperli pidemia , unspeci fied BERNAJ AIMEE W 12/16 [facility] MTMS BY PHARM ADDL 15 MIN [id number] Diagnos is: ICD-10- CM E78.5 Hyperli pidemia , unspeci fiPatric Swift W 12/28 [facility] [place] [facility] QNHP OL DIG ASSMT&MGMT 5-10 [id number] Diagnos is: ICD-10- CM E11.9 Type 2 diabete s mellitu s without complic ations FIDE BEAVER V 12/28 [place] [facility] [id number] 12/28 [facility] Outpatient Encounter [id number] 01/10 [facility] Outpatient Encounter [id number] 01/10 [facility] Outpatient Encounter [id number] 01/23 [facility] Outpatient Encounter [id number] 01/25 [facility] [place] [id number] Diagnos is: ICD-10- CM K02.63 Dental caries on smooth surface penetra ting into pulp SHENG WILLIAMSON H 01/31 [place] [facility] Outpatient Encounter [id number] 02/02 [facility] MTMS BY PHARM ADDL 15 MIN [id number] Diagnos is: ICD-10- CM E78.5 Hyperli pidemia , unspeci fied Patric CORONEL W 02/07 [facility] Outpatient Encounter [id number] 02/08 [facility] MTMS BY PHARM ADDL 15 MIN [id number] Diagnos is: ICD-10- CM E78.5 Hyperli pidemia , unspeci fied Patric CORONEL AIMEE W 02/23 [facility] Outpatient Encounter [id number] 02/23 [facility] Out[facility] Encounter [id number] 03/07 [facility] Outpatient Encounter [id number] 03/14 [facility] [place] [facility] OFFICE O/P EST LOW 20 MIN [id number] Diagnos is: ICD-10- CM L60.0 Ingrowi ng nail Juan RATLIFF 04/21 [place] [facility] [id number] Diagnos is: ICD-10- CM L60.0 Ingrowi ng nail Patric JEROME 04/21 [facility] OFF/OP EST AUGUST X REQ PHY/QHP [id number] Diagnos is: ICD-10- CM M79.675 Pain in left toe(s) Patric JEROME 04/21 [facility] [place] [facility] Outpatient Encounter [id number] 04/24 [place] [facility] En[facility] [id number] 05/03 [facility] Outpatient Encounter [id number] 05/03 [facility] MTMS BY PHARM ADDL 15 MIN [id number] Diagnos is: ICD-10- CM E78.5 Hyperli pidemia , unspeci fied BERNA,J AIMEE W 05/11 [facility] Outpatient Encounter [id number] 05/11 [facility] MTMS BY PHARM ADDL 15 MIN [id number] Diagnos is: ICD-10- CM E78.5 Hyperli pidemia , unspeci fied BERNA,J AIMEE W 05/29 [facility] MTMS BY PHARM ADDL 15 MIN [id number] Diagnos is: ICD-10- CM E78.5 Hyperli pidemia , unspeci fied BERNA,J AIMEE W 06/08 [facility] Outpatient Encounter [id number] 06/09 [facility] Outpatient Encounter [id number] 06/15 [facility] OFF/OP EST MAY X REQ PHY/QHP [id number] Diagnos is: ICD-10- CM J01.80 Other acute sinusit is LISA ESCOBEDO 06/16 [facility] OFFICE O/P EST MOD 30 MIN [id number] Diagnos is: ICD-10- CM J01.90 Acute sinusit is, unspeci BENJAMIN Patel JJ G 06/16 [facility] Outpatient Encounter [id number] LENORA BENITEZ RIL L 06/19 [facility] Outpatient Encounter [id number] 06/27 [facility] Outpatient Encounter [id number] 06/27 [facility] Outpatient Encounter [id number] [id number] 07/05 [facility] Outpatient Encounter [id number] 07/05 [facility] Outpatient Encounter [id number] 07/25 [facility] OFF/OP EST MAY X REQ PHY/QHP [id number] Diagnos is: ICD-10- CM R09.81 Nasal congest ion CUSTRED,TO RRI J 08/23 [facility] MTMS BY PHARM ADDL 15 MIN [id number] Diagnos is: ICD-10- CM E78.5 Hyperli pidemia , unspeci Patric Limon W 09/14 [facility] Outpatient Encounter [id number] LENORA BENITEZ RIL L 09/25 [facility] Outpatient Encounter [id number] RICHARD GARCÍA A 10/09 [facility] Outpatient Encounter [id number] 10/09 [facility] Outpatient Encounter [id number] 10/18 [facility] Outpatient Encounter [id number] GARY GAY 10/18 [facility] O/P EST MOD 30 MIN [id number] Diagnos is: ICD-10- CM R03.0 Elevate d blood-p ressure reading , w/o diagnos is of htn GARY GAY 10/18 [facility] En[facility] [id number] 10/20 [facility] Outpatient Encounter [id number] 10/26 [facility] Outpatient Encounter [id number] [id number] 11/14 [facility] Outpatient Encounter [id number] [id number] 11/14 [facility] Social History Combined list of available smoking, tobacco, and other social history from [facility] of Defense and [facility] Affairs facilities. Social History Type Response Date Comment Source Tobacco smoking status NHIS [facility]-TOBACCO USE FORMER CIGARETTES 10/18/2024 [facility] History of tobacco use VA-TOBACCO NEVER USED OTHER TYPE 10/18/2024 [facility] History of tobacco use VA-TOBACCO FORMER USER 11/03/2023 [facility] History of tobacco use VA-TOBACCO FORMER USER 04/24/2022 [facility] History of tobacco use VA-TOBACCO FORMER USER 12/26/2019 [facility] History of tobacco use CURRENT NON-TOBACCO USER-HX OF USE 04/04/2019 [facility] History of tobacco use CURRENT TOBACCO USER 09/09/2018 [facility] History of tobacco use CURRENT NON-TOBACCO USER-HX OF USE 04/15/2018 [facility] History of tobacco use CURRENT NON-TOBACCO USER-HX OF USE 04/15/2018 [facility] History of tobacco use QUIT TOBACCO >12 MO and <7 YRS AGO 08/10/2017 [facility] History of tobacco use QUIT TOBACCO >12 MO and <7 YRS AGO 12/02/2016 [facility] History of tobacco use QUIT TOBACCO >12 MO and <7 YRS AGO 02/26/2015 [facility] History of tobacco use QUIT TOBACCO IN THE LAST 12 MONTHS 01/01/2014 [facility] History of tobacco use TOBACCO OFFERED PT MEDS (PROVIDER) 07/27/2012 [facility] History of tobacco use TOBACCO OFFERED PT MEDS (PROVIDER) 03/25/2010 will start on bupropion [facility] History of tobacco use CURRENT TOBACCO USER 11/16/2006 [facility] History of tobacco use CURRENT TOBACCO USER 10/21/2004 [facility] History of tobacco use CURRENT NON-TOBACCO USER-HX OF USE 06/23/2004 l pack daily [facility] History of tobacco use TOB-SMOKES OR USES TOBACCO PRODUCTS 03/09/2002 1 PK DAY [facility] Plan of Care List of future care activities from Department of [facility] Affairs facilities. Additional future care activities may be listed in the Assessment and Plan section. Date/Time Care Activity Care Activity Detail Facili ty 11/02/2024 Laboratory - [facility] Order COMPREHENSIVE METABOLIC PANEL GREEN LI/HEP BLD/PLAS PLASMA SP [facility]
--- NOTE | 2024-12-08 10:37 | ECG_ITS ---
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 Measurements Intervals [place] Rate: 145 P: 0 NV: 0 QRS: 89 QRSD: 89 T: 1 QT: 290 QTc: 451 Interpretive Statements ATRIAL FIBRILLATION WITH RAPID VENTRICULAR RESPONSE Change in rhythm from A-fib with RVR to sinus tachycardia midway through the EKG MODERATE ST DEPRESSION during A-fib with RVR [0.05+ mV ST DEPRESSION] Compared to ECG 10/06/2024 21:23:26 Atrial fibrillation with rapid ventricular response and ST deviation are new Electronically Signed On 12-08-2024 14:06:49 CDT by Bo Sprague M.D. [email or web address]
--- OUTSIDE RECORDS SUMMARY | 2024-12-08 10:41 | XMS_ITS | Patient Health Record ---
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 Name Role Phone Jhoana Lima MD Primary Care Provider Jay Randolph Unavailable [phone] [place], [place] Unavailable Unavailable Allergies Allergen (clinical drug ingredient) Drug/Non Drug Allergy documented on EMR Reaction Allergy Type Onset Date Status No Known Drug Allergy Unknown Drug Allergy Active Reason For Referral No Information Medications Medication SIG (Take, Route, Frequency, Duration) Notes Start Date End Date Status Metoprolol Tartrate 50 MG Tablet 1 tablet in the morning and 1/2 tablet at night Orally Twice a day Active metFORMIN HCl 1000 MG Tablet 1 tablet with a meal Orally twice a day Active glipiZIDE 5 MG Tablet 1 tab Orally twice a day Active Eliquis 5 MG Tablet 1 tablet Orally Twice a day Active Reglan 10 MG Tablet 1 tablet Orally once; Duration: 1 days 06/25/2022 Active Multivitamin - Liquid 1 ml Orally once monthly Ivomek once montly Active Social History Tobacco Use: Social History Observation Description Date Details (start date - stop date) Former Smoker NA - NA Social History Drugs/Alcohol: Social Info Question Answer Notes Alcohol Screen (Audit-C) Did you have a drink containing alcohol in the past year? Yes How often did you have a drink containing alcohol in the past year? Monthly or less (1 point) Points 1 Interpretation Negative Tobacco Use: Social Info Question Answer Notes xTobacco Use/Smoking Are you a former smoker Problems Problem Type SNOMED Code ICD Code Onset Dates Problem Status W/U Status Risk Notes Problem History of colon polyps (Z86.010) Active confirmed Plan Of Treatment No Information Insurance Providers Payer Name Payer Address Payer Phone Subscriber Number Group Number Insured Name Patient Relationship to Insured Coverage Start Date Coverage End Date [employer] [address] [place] [phone] [id number] Scar Cardoso Self - patient is the insured Medical (General) History Medical History History ICD Code arthritis diabetes back pain afib covid Surgical History Surgery Date(Month/Year) acl repair 1990 ankle repair shoulder repair 2020 eyelid lift Hospitalization History Reason Date(Month/Year) see surgery list
--- NOTE | 2024-12-08 10:54 | XR_ITS ---
WS: [id number] Portable AP upright chest, 12/08/2024 Clinical Data: afib Comparison: Portable chest, 10/06/2024. Findings: No nodules, masses or effusions are seen. The heart is normal. The pulmonary vascularity is not increased. No pneumonia or pneumothorax is seen. Monitor leads are on the chest wall. XR/XR chest 1V portable [id number] Impression: Negative chest.
--- NOTE | 2024-12-08 10:55 | W.ED.ARRPALP ---
HPI - Arrhythmia/Palpitations General: Chief Complaint: Arrhythmia/Palpitations Stated Complaint: 145/160 HR feel like he is in Afib weakness Time Seen by Provider: 12/08/24 10:45 History of Present Illness: 54-year-old gentleman with history of atrial fibrillation however not in 6 years, DM, HTN, compliant to daily metoprolol and has consumed today, presents to the ED with palpitations. Patient stated he awoke with palpitations. Denies shortness of breath or chest pain. Patient denies any symptoms like this for 6 years. 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 Blood pressure is soft at 93/54. Associated symptoms: Deny anxiety, nausea or vomiting Related Data Home Medications ?Medication ?Instructions ?Recorded ?Confirmed glipizide 5 mg tablet 5 mg PO BID@0800,199906/30/19 12/08/24 metformin 1,000 mg tablet 1,000 mg PO BID@0800,199906/30/19 12/08/24 aspirin 325 mg tablet 325 mg PO QAM 12/08/24 12/08/24 metoprolol succinate 50 mg 25 mg PO DAILY 12/08/24 12/08/24 tablet,extended release 24 hr rosuvastatin 5 mg tablet 5 mg PO DAILY PRN cholesterol 12/08/24 12/08/24 Previous Rx's ?Medication ?Instructions ?Recorded Night splint #1 ea 05/10/23 Custom molded with heel cups #1 ea 05/27/23 co-poly insoles with extra depth diabetic shoes Allergies Allergy/AdvReac Type Severity Reaction Status Date / Time atorvastatin (From Lipitor) AdvReac ADR-Cramping Verified 11/14/24 08:30 of the Muscles gemfibrozil (From Lopid) AdvReac ADR-Cramping Verified 11/14/24 08:30 of the Muscles Review of Systems General: Reports: 10 or more systems reviewed and unremarkable except in HPI and below Const: Reports: malaise; Denies: fever(s), chills or change in appetite Eyes: Denies: change in vision or blurry vision ENMT: Denies: throat pain or mouth pain Card: Reports: palpitations and irregular heart rhythm; Denies: chest pain Resp: Denies: dyspnea or non-productive cough GI: Denies: abdominal pain, nausea or vomiting : Denies: flank pain or difficulty urinating Musc: Denies: neck pain, back pain or extremity pain Neuro: Denies: headache(s) or numbness in extremities Psych: Denies: anxiety or depression PFS ED PFSH: Medical History Atrial fibrillation Paroxysmal atrial fibrillation with rapid ventricular response Plantar fasciitis History of colon polyps Anxiety Diabetes Hyperlipidemia Atrial flutter by electrocardiography Sleep apnea CPAP settings 8 to 14 cm Surgical History H/O knee surgery History of ankle surgery History of colonoscopy with polypectomy (08/31/19) sigmoid , ascending colon polyps, tubular adenoma with low-grade dysplasia Family History Other CAD (coronary artery disease) Cancer Diabetes Family history of CABG Heart disease Social History Smoking and tobacco/nicotine status: former use of tobacco/nicotine Alcohol intake: never Substance/Drug Use: never Physical Exam Const: COMMON NORMALS: no acute distress, average body habitus and patient oriented x3 HENMT: COMMON NORMALS: normocephalic and atraumatic HEAD & SCALP: normocephalic and atraumatic Eye: COMMON NORMALS: Equal, round and reactive pupils present, EOMs intact bilaterally, conjunctivae normal, no scleral icterus and no papilledema CONJUNCTIVA: Yes conjunctivae normal PUPIL: Yes Equal, round and reactive pupils present DIRECT OPHTHALMOSCOPY: Yes no papilledema Neck/C-Spine: COMMON NORMALS: full ROM and supple Chest: COMMONS NORMALS: normal inspection of the chest and normal palpation of entire chest wall Resp: COMMON NORMALS: normal respiratory effort, No retractions and clear to auscultation bilaterally AUSCULTATION: clear to auscultation bilaterally Cardio: RATE: tachycardic : COMMON NORMALS: Yes no CVA tenderness BLADDER/KIDNEY EXAM: Yes no CVA tenderness Back/Pelvis: COMMON NORMALS: no CVA tenderness Extremity: COMMON NORMALS: normal to inspection, full ROM and capillary refill normal Neuro: COMMON NORMALS: patient oriented x3 Course Reevaluation(s): Reevaluation #1: bp improved. hr decreased to 103 with amiodarone Consultations: Consultation #1: Dr. Moncada accepted admission Consultation #2: Dr. Rivera accepted admission/hospitalist/Darcie will c/s Vital Signs: Vital signs: Vital Signs Temperature 98.6 F 12/08/24 10:38 Pulse Rate 84 12/08/24 15:15 Respiratory Rate 16 12/08/24 15:15 Blood Pressure 104/56 12/08/24 15:15 Pulse Oximetry 95 12/08/24 15:15 Oxygen Delivery Me thod Room Air 12/08/24 12:30 MDM - Arrhythmia/Palpitations Medical Decision Making 54-year-old gentleman with previous history of atrial fibrillation comes in with question of dehydration, soft blood pressure, and A-fib RVR in the 140s. Minimal amount of diltiazem was attempted given blood pressure was soft while given IV fluid bolus. Patient was immediately converted to amiodarone with load, and drip, and rate has come down nicely to 103. Second fluid bolus was given as well for blood pressure support. Lactic acid was elevated at 2.3 which I suspect is secondary to volume contraction hypovolemia and I do not suspect sepsis. Magnesium was low at 1.6, 4 g have been ordered. Urine analysis is pending. TSH is stable. Cardiology has excepted consultation, medicine has excepted admission. Lab Data 12/08/24 10:59 12/08/24 10:59 Radiology Impressions Chest X-Ray 12/08/24 10:54 Impression: Negative chest. Laboratory Results WBC 7.28 10^3/uL (3.29-11.43) 12/08/24 10:59 RBC 4.89 10^6/uL (3.85-5.65) 12/08/24 10:59 Hgb 14.60 g/dL (11.27-16.99) 12/08/24 10:59 Hct 43.0 % (37-53) 12/08/24 10:59 MCV 87.9 fl (82-101) 12/08/24 10:59 MCH 29.9 pg (27-33) 12/08/24 10:59 MCHC 34.0 g/dL (30-55) 12/08/24 10:59 RDW 13.1 % (12.1-15.1) 12/08/24 10:59 Plt Count 218 10^3/cmm (157-399) 12/08/24 10:59 MPV 11.2 fL (7.4-10.4) H 12/08/24 10:59 Neut % (Auto) 81.1 % 12/08/24 10:59 Lymph % (Auto) 9.9 % 12/08/24 10:59 [place] % (Auto) 5.9 % 12/08/24 10:59 Eos % (Auto) 1.9 % 12/08/24 10:59 Baso % (Auto) 0.8 % 12/08/24 10:59 Neut # (Auto) 5.90 10^3/uL (1.8-7.7) 12/08/24 10:59 Lymph # (Auto) 0.7 10^3/uL (0.8-4.8) L 12/08/24 10:59 [place] # (Auto) 0.4 10^3/uL (0.2-0.9) 12/08/24 10:59 Eos # (Auto) 0.1 10^3/uL (0.0-0.8) 12/08/24 10:59 Baso # (Auto) 0.1 10^3/uL (0.0-0.1) 12/08/24 10:59 Nucleated RBC % (auto) 0 % 12/08/24 10:59 Nucleated RBCs # 0.0 /100WBC 12/08/24 10:59 Sodium 135 mmol/L (136-145) L 12/08/24 10:59 Potassium 4.1 mmol/L (3.5-5.1) 12/08/24 10:59 Chloride 100 mmol/L (98-107) 12/08/24 10:59 Carbon Dioxide 22 mmol/L (22-29) 12/08/24 10:59 Anion Gap 17.1 (5-19) 12/08/24 10:59 BUN 19 mg/dL (6-20) 12/08/24 10:59 Creatinine 1.0 mg/dL (0.7-1.2) 12/08/24 10:59 GFR Calculation 77.3 mL/min (90-130) L 12/08/24 10:59 Glucose 171 mg/dL (65-115) H 12/08/24 10:59 Calculated Osmolality 286 mOsm/kg (285-295) 12/08/24 10:59 Lactic Acid 2.3 mmol/L (0.5-2.2) H 12/08/24 10:59 Calcium 8.8 mg/dL (8.5-10.5) 12/08/24 10:59 Magnesium 1.6 mg/dL (1.7-2.3) L 12/08/24 10:59 Total Bilirubin 0.8 mg/dL (0.15-1.2) 12/08/24 10:59 AST 14 U/L (0-40) 12/08/24 10:59 ALT 16 U/L (0-41) 12/08/24 10:59 Alkaline Phosphatase 68 U/L (40-130) 12/08/24 10:59 Troponin T Baseline < 6 ng/L (0-15) 12/08/24 10:59 Troponin T 120 Minute < 6.0 ng/L (0-15) 12/08/24 12:10 Delta Troponin T 0 ABS# (0-10) 12/08/24 12:10 NT-Pro-B Natriuret Pep 184 pg/mL (0-125) H 12/08/24 10:59 Total Protein 7.1 g/dL (6.6-8.7) 12/08/24 10:59 Albumin 4.2 g/dL (3.5-5.2) 12/08/24 10:59 Globulin 2.9 g/dL (1.3-4.6) 12/08/24 10:59 TSH 1.33 uIU/mL (0.27-4.20) 12/08/24 10:59 Ethyl Alcohol < 10 mg/dL (0-10) 12/08/24 10:59 All radiology interpretation(s) finalized by discharge EKG Data EKG 1: Interpretation: A-fib RVR, rate 120 Other EKG comments: Chest X-Ray 12/08/24 10:54 Impression: Negative chest. EKG 2: Interpretation: A-fib with rate of 103 Other EKG comments: Chest X-Ray 12/08/24 10:54 Impression: Negative chest. Discharge Plan Discharge Patient Disposition: Admitted As Inpatient Admit Provider: Demetrius Isidro Clinical Impression: Atrial fibrillation with rapid ventricular response, Hypomagnesemia Condition: Stable Coding Level of Care Code ED Silica Mixer Operator for Antione Morgan
[2024-12-08] MEDS: dilTIAZem 5 mg/mL SDV 5 mL IVP (11:05)
[2024-12-08 11:09] LABS: Hematocrit 43.0 % (37-53); Hemoglobin 14.60 g/dL (11.27-16.99); Mean Corpuscular HGB Conc 34.0 g/dL (30-55); Mean Corpuscular Hemoglobin 29.9 pg (27-33); Mean Corpuscular Volume 87.9 fl (82-101); Nucleated Red Blood Cells % 0 %; Platelet Count 218 10^3/cmm (157-399); Red Blood Count 4.89 10^6/uL (3.85-5.65); White Blood Count 7.28 10^3/uL (3.29-11.43)
[2024-12-08 11:31] LABS: Lactic Sepsis W/Reflex 2.3 mmol/L (0.5-2.2)
[2024-12-08] MEDS: amiodarone 150 MG/100 ML PREMIX 400 MG IV (11:31)
[2024-12-08 11:38] LABS: Reflex Lactate Order REFLEX LACTIC ORDERD
[2024-12-08 11:44] LABS: Alanine Aminotransferase 16 U/L (0-41); Albumin Level 4.2 g/dL (3.5-5.2); Alkaline Phosphatase 68 U/L (40-130); Anion Gap 17.1 (5-19); Aspartate Amino Transferase 14 U/L (0-40); Blood Urea Nitrogen 19 mg/dL (6-20); Calcium 8.8 mg/dL (8.5-10.5); Carbon Dioxide 22 mmol/L (22-29); Chloride 100 mmol/L (98-107); Creatinine Clr Calc Pharmacy 104.8721; Globulin 2.9 g/dL (1.3-4.6); Glucose 171 mg/dL (65-115); Magnesium 1.6 mg/dL (1.7-2.3); NT Pro B Type Natriuretic Pept 184 pg/mL (0-125); Osmolality Calculated 286 mOsm/kg (285-295); Potassium 4.1 mmol/L (3.5-5.1); Sodium 135 mmol/L (136-145); Thyroid Stimulating Hormone 1.33 uIU/mL (0.27-4.20); Total Protein 7.1 g/dL (6.6-8.7)
[2024-12-08 11:45] LABS: Alcohol Level < 10 mg/dL (0-10)
[2024-12-08 11:51] LABS: Troponin(5th) Baseline < 6 ng/L (0-15)
--- NOTE | 2024-12-08 12:41 | PC.PHAR ---
Pt is [facility] but does know medications.
[2024-12-08] MEDS: magnesium sulfate premix 4 GM/100 ML PREMIX IV (12:46)
[2024-12-08 13:01] LABS: Troponin 5 2HR < 6.0 ng/L (0-15); Troponin 5 2HR Delta 0 ABS# (0-10)
--- NOTE | 2024-12-08 13:15 | USCV_ITS ---
Scar Cardoso Age: 54 Gender: M : 1970 Exam Date: 12/08/2024 17:31 Ordering Phys: Liyah Cheema Technologist: PHILLIP Exam Location: [facility] [place] Indication: afib, sob BP: 107 / 55 HR: 79 Rhythm: Sinus Technical Quality: Adequate MEASUREMENTS (Male / Female) Normal Values 2D ECHO LV Diastolic Diameter PLAX 5.1 cm 4.2 - 5.9 / 3.9 - 5.3 cm IVS Diastolic Thickness 0.8 cm 0.6 - 1.0 / 0.6 - 0.9 cm IVS Systolic Thickness 1.0 cm LVPW Diastolic Thickness 0.9 cm 0.6 - 1.0 / 0.6 - 0.9 cm LVPW Systolic Thickness 1.7 cm LVOT Diameter 2.0 cm LV Ejection Fraction 2D Teich 56.1 % LV Ejection Fraction MOD 4C 59.6 % LV Ejection Fraction MOD 2C 65.8 % LV Ejection Fraction 2C AL 65.3 % LA Diameter 3.7 cm RA Systolic Volume 4C AL 38.0 ml RA Systolic Volume 4C MOD 38.1 ml LA Sys Volume AL 42.1 cm cubed LA Sys Volume Index AL 18.4 cm cubed/m squared Aorta at Sinotubular Diameter 2.1 cm IVC Diameter 1.8 cm M-MODE LA Ao Ratio MM 1.5 AV Cusp Separation MM 1.9 cm DOPPLER AV Peak Velocity 131.0 cm/s LVOT Peak Velocity 87.0 cm/s AV Area Cont Eq vti 2.3 cm squared AV Area Cont Eq pk 2.2 cm squared MV Peak Velocity 98.0 cm/s MV Area PHT 4.4 cm squared Mitral E to A Ratio 1.2 TV Peak Velocity 285.5 cm/s TR Peak Velocity 296.0 cm/s TR Peak Gradient 35.0 mmHg TR Mean Velocity 251.0 cm/s TR Mean Gradient 26.1 mmHg TR Velocity Time Integral 68.5 cm PV Peak Velocity 99.0 cm/s RV Ejection Time 0.4 s FINDINGS Left Ventricle Normal left ventricular cavity size. Low normal left ventricular systolic function. Visually, EF 50-55%. Normal LV diastolic function. Normal LV wall thickness. Right Ventricle Normal right ventricular size and systolic function. Right Atrium Normal right atrial size. Left Atrium Normal left atrial size. Mitral Valve Structurally normal mitral valve. No mitral valve stenosis. No mitral valve regurgitation. Aortic Valve No aortic valve stenosis. No aortic valve regurgitation. Tricuspid Valve Mild tricuspid valve regurgitation. Normal pulmonary pressure. Pulmonic Valve No pulmonary valve stenosis. No pulmonary valve regurgitation. Pericardium No pericardial effusion. Aorta Normal size aortic root and proximal ascending aorta. IVC Normal inferior vena cava. CONCLUSIONS 1. Normal left ventricular size. Low normal left ventricular systolic function. Visually EF 50 to 55%. 2. No significant valvular abnormalities 3. Normal right ventricular size and systolic function Bo Sprague MD, FACC (Electronically Signed) Final Date: 09 December 2024 09:29 S
[2024-12-08 13:43] LABS: Add Urine Microscopic? NO
[2024-12-08 13:46] LABS: Glucose Urine UA Negative (Normal); Nitrate Urine Negative (Negative); Specific Gravity, Urine 1.009 (1.005-1.030)
--- NOTE | 2024-12-08 13:58 | P.CONIM_ITS ---
<Statement entered by Bo Sprague MD - 12/08/24 16:10> Patient was evaluated and cared for in conjunction with an advanced practice practitioner. I personally examined the patient and reviewed the chart and all pertinent data including imaging, telemetry, and laboratory results. I discussed the patient in detail with the advanced practice practitioner. Please see their note for complete consult note, testing results and agreed upon plan of care for the patient. GENERAL: Patient is alert, awake and oriented x3. NECK: No JVD or carotid bruit HEART: irreg irreg, mild tachy, no murmur LUNGS: Clear to auscultation bilaterally. EXTREMITIES: Lower extremities without edema bilaterally. PAF - symptomatic, starting to feel better with some rate control. Continue plan as outlined Providers/Reason For Consult 2 Consulting Physician/Specialty*: Dr Sprague, cardiology Reason for Consult*: Atrial fibrillation with RVR Requesting Physician: Dr. Gupta Attending Physician: Dr. Isidro Primary Care Provider: Jhoana Dunn MD History of Present Illness History of Present Illness Scar Cardoso is a 54 year old male with past medical history of paroxysmal atrial fibrillation/flutter, hypertension, PVCs, diabetes, GINA not on CPAP therapy by choice. He presented to the emergency room this morning due to weakness and rapid heart rate. He was found to be in atrial fibrillation with RVR, ventricular rate in the 140s. Subsequent EKG after diltiazem and on amiodarone showed paroxysmal atrial fibrillation, some periods of sinus rhythm. 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 He by report has not had a episode of atrial fibrillation in the last 6 years. He has been on Eliquis previously, taken off of anticoagulation when he had not had any atrial fibrillation in several years. Previously we have discussed ablation with him and he has declined. His last echocardiogram in 2020 showed normal LVEF 55%. He had a treadmill stress test in 2019 which did not suggest ischemia. Magnesium is low at 1.6 today, normal renal function, TSH 1.33, lactic acid 2.3, BNP 184. He has been on metoprolol succinate 25 mg daily to which he has good compliance. He has not had any chest pain or shortness of breath when in RVR. No weight gain, lower extremity edema, orthopnea, excessive alcohol intake. He quit smoking 11 years ago. He has received diltiazem 5 mg IV, however blood pressure is on the soft side so he was bolused with amiodarone and started on infusion at 1 mg/h. Medications/Allergies Home Medications ?Medication ?Instructions ?Recorded ?Confirmed ?Last Taken ?Type glipizide 5 mg tablet 5 mg PO BID@08,199912/08/24 12/08/24 History metformin 1,000 mg tablet 1,000 mg PO BID@799,199912/08/24 12/08/24 History Night splint #1 ea 05/10/23 12/08/24 Unkn own Rx Custom molded with heel cups #1 ea 05/27/23 12/08/24 U nknown Rx co-poly insoles with extra depth diabetic shoes aspirin 325 mg tablet 325 mg PO QAM 12/08/2412/0812/08/24 History metoprolol succinate 50 mg 25 mg PO DAILY 12/08/2412/08/24 History tablet,extended release 24 hr rosuvastatin 5 mg tablet 5 mg PO DAILY PRN cholestero l 12/08/24 12/08/24 Unknown History Allergies Allergy/AdvReac Type Severity Reaction Status Date / Time atorvastatin (From Lipitor) AdvReac ADR-Cramping Verified 11/14/24 08:30 of the Muscles gemfibrozil (From Lopid) AdvReac ADR-Cramping Verified 11/14/24 08:30 of the Muscles Current Medications Generic Name Dose Route Start Last Admin Trade Name Carlosq PRN Reason Stop Dose Admin Amiodarone HCl/Dextrose 360 mg in 200 mls @ 0 mls/hr 12/08/24 11:22 12/08/24 12:00 Nexterone IV 1 mg/min .Q0M AMELIA 33.33 mls/hr Protocol Administration Per Protocol Magnesium Sulfate 4 gm in 100 mls @ 50 mls/hr 12/08/24 12:35 12/08/24 12:46 Magnesium Sulfate Premix IV 12/08/24 14:34 50 mls/hr ONCE ONE Administration PFSH Acute 2 PFSH: Medical History Atrial fibrillation Paroxysmal atrial fibrillation with rapid ventricular response Plantar fasciitis History of colon polyps Anxiety Diabetes Hyperlipidemia Atrial flutter by electrocardiography Sleep apnea CPAP settings 8 to 14 cm Surgical History H/O knee surgery History of ankle surgery History of colonoscopy with polypectomy (08/31/19) sigmoid , ascending colon polyps, tubular adenoma with low-grade dysplasia Family History Other CAD (coronary artery disease) Cancer Diabetes Family history of CABG Heart disease Social History Smoking and tobacco/nicotine status: former use of tobacco/nicotine Alcohol intake: never Substance/Drug Use: never Vitals/I&O/Wt Last Vital Signs Temp 98.6 F 12/08/24 10:38 Pulse 98 12/08/24 13:00 Resp 14 12/08/24 13:00 BP 104/61 12/08/24 13:00 Pulse Ox 94 12/08/24 13:00 O2 Del Method Room Air 12/08/24 12:30 12/07/24 12/08/24 12/08/24 22:59 06:59 14:59 Intake Total 100 / 100 Balance 100 / 100 Weight last 48 hrs Weight 216 lb Physical Exam 2 Const: COMMON NORMALS: no acute distress and patient oriented x3 Chest: COMMONS NORMALS: normal inspection of the chest and normal palpation of entire chest wall CHEST: Yes Symmetrical chest wall rise Resp: COMMON NORMALS: normal respiratory effort, No retractions, No use of accessory muscles and clear to auscultation bilaterally EFFORT & INSPECTION: Yes symmetric chest movement AUSCULTATION: clear to auscultation bilaterally Cardio: COMMON NORMALS: S1 normal heart sound present, S2 normal heart sound present, No gallops present (Cardio), No clicks present (Cardio), No murmurs present (Cardio) and No rub (Cardio) RHYTHM: abnormal rhythm irregularly irregular HEART SOUNDS: S1 normal heart sound present and S2 normal heart sound present PERIPHERAL PULSES: radial pulses present, posterior tibial pulses present and dorsalis pedis present Extremity: GENERAL: No edema Neuro: COMMON NORMALS: patient oriented x3 and moves all extremities Psych: COMMON NORMALS: mental status grossly normal and cooperative Data 12/08/24 10:59 12/08/24 10:59 A&P Assessment and plan 1. Atrial fibrillation with rapid ventricular response: 2. Hypertension: 3. Diabetes: 4. Sleep apnea: 5. Hypomagnesemia: Plan: Will recommend to replace magnesium. Will also try to get him to convert to sinus rhythm by continuing amiodarone infusion and utilizing metoprolol 5 mg IV total of 2 doses 20 minutes apart. When heart rate is improved will obtain echocardiogram to evaluate cardiac status further. Discussed his [id number] score of 2 with him, he is agreeable to start anticoagulation with apixaban 5 mg twice daily. Further plan will be devised based on response to medications and results of echocardiogram. PDMP PDMP Reviewed: Not Reviewed Coding Level of Care Code Acute Code for [facility] Diagnoses Atrial fibrillation with rapid ventricular response I48.91 Hypertension I10 Diabetes E11.9 Sleep apnea G47.30 Hypomagnesemia E83.42
--- NOTE | 2024-12-08 13:59 | PM.HP ---
Providers/Chief Complaint Admitting Physician: Dr. Isidro Primary Care Provider: Jhoana Dunn MD Chief Complaint: 145/160 HR feel like he is in Afib weakness History of Present Illness Scar Cardoso is a 54 year old male presenting with afib with RVR. He has PMHx of Afib but has essentially been in sinus rhythm per patient for the last 6 years and has been off AC. He is on rate control with betablocker. 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 He also skipped dinner last night. He awoke around 2:00 AM with palpations and LE weakness. He then presented to the ER and found to be in Afib with RVR and admitted for further work up and treatment. Review of Systems Const: Denies: fever(s), chills or body aches Eyes: Denies: change in vision ENMT: Denies: throat pain Card: Reports: palpitations and irregular heart rhythm; Denies: chest pain, dyspnea on exertion or orthopnea Resp: Denies: productive cough or wheezing GI: Denies: abdominal pain, nausea or vomiting : Denies: flank pain Musc: Denies: neck pain, back pain or extremity pain Skin/Breast: Denies: rash or pruritus Neuro: Denies: headache(s) Psych: Denies: anxiety or depression Medications/Allergies Home Medications ?Medication ?Instructions ?Recorded ?Confirmed ?Last Taken ?Type glipizide 5 mg tablet 5 mg PO BID@0806/30/19 12/08/24 12/08/24 History metformin 1,000 mg tablet 1,000 mg PO BID@0806/30/19 12/08/24 12/08/24 History Night splint #1 ea 05/10/23 12/08/24 Unknown Rx Custom molded with heel cups #1 ea 05/27/23 12/08/24 Unknown Rx co-poly insoles with extra depth diabetic shoes aspirin 325 mg tablet 325 mg PO QAM 12/08/24 12/08/24 12/08/24 History metoprolol succinate 50 mg 25 mg PO DAILY 12/08/24 12/08/24 12/08/24 History tablet,extended release 24 hr rosuvastatin 5 mg tablet 5 mg PO DAILY PRN cholesterol 12/08/24 12/08/24 Unknown History Allergies Allergy/AdvReac Type Severity Reaction Status Date / Time atorvastatin (From Lipitor) AdvReac ADR-Cramping Verified 11/14/24 08:30 of the Muscles gemfibrozil (From Lopid) AdvReac ADR-Cramping Verified 11/14/24 08:30 of the Muscles PFSH Acute PFSH: Medical History Atrial fibrillation Paroxysmal atrial fibrillation with rapid ventricular response Plantar fasciitis History of colon polyps Anxiety Diabetes Hyperlipidemia Atrial flutter by electrocardiography Sleep apnea CPAP settings 8 to 14 cm Surgical History H/O knee surgery History of ankle surgery History of colonoscopy with polypectomy (08/31/19) sigmoid , ascending colon polyps, tubular adenoma with low-grade dysplasia Family History Other CAD (coronary artery disease) Cancer Diabetes Family history of CABG Heart disease Social History Smoking and tobacco/nicotine status: former use of tobacco/nicotine Alcohol intake: never Substance/Drug Use: never Vitals/I&O/Wt Last Vital Signs Temp 98.6 F 12/08/24 10:38 Pulse 98 12/08/24 13:00 Resp 14 12/08/24 13:00 BP 104/61 12/08/24 13:00 Pulse Ox 94 12/08/24 13:00 O2 Del Method Room Air 12/08/24 12:30 12/07/24 12/08/24 12/08/24 22:59 06:59 14:59 Intake Total 100 / 100 Balance 100 / 100 Weight last 48 hrs Weight 97.976 kg Physical Exam Const: COMMON NORMALS: no acute distress, average body habitus and healthy appearing HENMT: COMMON NORMALS: normocephalic and atraumatic Eye: COMMON NORMALS: Equal, round and reactive pupils present and EOMs intact bilaterally Chest: COMMONS NORMALS: normal inspection of the chest and normal palpation of entire chest wall Resp: COMMON NORMALS: normal respiratory effort, No retractions and clear to auscultation bilaterally Cardio: COMMON NORMALS: no JVD RATE: tachycardic RHYTHM: abnormal rhythm GI: COMMON NORMALS: Soft to palpation, non-tender and no masses Extremity: COMMON NORMALS: normal to inspection, full ROM and no pedal edema Neuro: COMMON NORMALS: patient oriented x3 and CN's II-XII intact bilaterally Skin: COMMON NORMALS: no rashes or lesions noted, no wounds and turgor normal Data 12/08/24 10:59 12/08/24 10:59 A&P Assessment and plan 1. Hypomagnesemia: 2. Atrial fibrillation with rapid ventricular response: 3. Paroxysmal atrial fibrillation with rapid ventricular response: Plan: 54 year old male presenting with Afib with RVR Afib with RVR H/O paroxysmal afib - history of Afib, not on AC for past several years, reports no afib for about 6 years. - placed on amioadrone drip in ER, cont. - give metoprolol tartrate 5 mg IV Q20 minutes x2 doses - Chadsvac 2, will start eliquis 5 mg BID - reduce home aspirin to 81 mg daily - can continue oral rate control in AM - cont. statin - fasting lipid panel in AM - echo when rate is in normal range. Hypomagnesemia - 2g ordered, recheck in AM DMII - hold oral meds for now - SSI - check A1c H/O GINA - does not tolerate CPAP Diet: PPx: eliquis Disposition - monitor HR PDMP PDMP Reviewed: Not Reviewed Attestations Medical Necessity Statement*: anticipate inpatient > 2 midnights for afib with RVR Time Spent in Patient Care: 16 - 35 minutes (>than 50% of time spent in counselling and/or direct pt care on unit). Coding Level of Care Code Acute Code for Chg Fwd Diagnoses Hypomagnesemia E83.42 Atrial fibrillation with rapid ventricular response I48.91 Paroxysmal atrial fibrillation with rapid ventricular response I48.0
[2024-12-08 14:02] LABS: Charge for UA Resulting for Rev
[2024-12-08 14:42] LABS: Lactic Acid level (Lactate) 2.3 mmol/L (0.5-2.2)
--- NOTE | 2024-12-08 15:30 | PC.NURSE ---
Admit Note Patient admitted to room 107 from ER via stretcher. Covering service notified. Patient presents with Afib w/rvr now converted back to sinus rhythm approximately an hour ago in ER per ER nurse report, colette SR HR-80s upon arrival to room. Orders reviewed & will continue to monitor. Pt is on Amiodarone drip 1 mg/min initial rate started in ER around 12n, BP normal limit on room air, A and ox4.. Patient and/or communications representative oriented to environment, equipment, and informed of the following as found in the admission booklet: patient rights & responsibilities, visitor policy, hand and respiratory hygiene practice. Other education includes: Amiodarone drip, anticoagulation therapy for Afib such as starting on Eliquis. Patient and/or communications representative verbalizes understanding, call light provided to pt.
--- NOTE | 2024-12-08 16:15 | ECG_ITS ---
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 Measurements Intervals [place] Rate: 78 P: 66 [place]: 166 QRS: 79 QRSD: 107 T: 25 QT: 370 QTc: 423 Interpretive Statements SINUS RHYTHM INCOMPLETE RIGHT BUNDLE BRANCH BLOCK [90+ ms QRS DURATION, TERMINAL R IN V1/V2, 40+ ms S IN I/aVL/V4/V5/V6] Compared to ECG 12/08/2024 13:04:23 Atrial fibrillation no longer present Electronically Signed On 12-10-2024 17:13:17 CDT by Bo Sprague M.D. [email or web address] [id number]
--- NOTE | 2024-12-08 16:53 | ECG_ITS ---
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 Measurements Intervals [place] Rate: 103 P: 0 [place]: 0 QRS: 82 QRSD: 105 T: 2 QT: 331 QTc: 435 Interpretive Statements ATRIAL FIBRILLATION WITH RAPID VENTRICULAR RESPONSE INCOMPLETE RIGHT BUNDLE BRANCH BLOCK [90+ ms QRS DURATION, TERMINAL R IN V1/V2, 40+ ms S IN I/aVL/V4/V5/V6] ABNORMAL RHYTHM ECG Compared to ECG 12/08/2024 10:37:04 ST (T wave) deviation no longer present Electronically Signed On 12-08-2024 14:24:13 CDT by Bo Sprague M.D. [id number]
[2024-12-08 18:06] LABS: Troponin 5 6HR 7.97 ng/L (0-15); Troponin 5 6HR Delta 1.97001 ng/L (0-12)
[2024-12-08] MEDS: ATORVASTATIN 10 MG TABLET PO (21:12)
[2024-12-09 03:47] LABS: Hematocrit 37.1 % (37-53); Hemoglobin 12.00 g/dL (11.27-16.99); Mean Corpuscular HGB Conc 32.3 g/dL (30-55); Mean Corpuscular Hemoglobin 29.3 pg (27-33); Mean Corpuscular Volume 90.7 fl (82-101); Nucleated Red Blood Cells % 0 %; Platelet Count 178 10^3/cmm (157-399); Red Blood Count 4.09 10^6/uL (3.85-5.65); White Blood Count 5.36 10^3/uL (3.29-11.43)
[2024-12-09 03:54] VITALS: BP 119/58; PULSE 77; RESP 12; TEMP 36.9; O2SAT 92
[2024-12-09 04:14] LABS: Magnesium 2.0 mg/dL (1.7-2.3)
[2024-12-09 04:16] LABS: Estmated Average Glucose 131; Hemoglobin A1C 6.2 % (4.0-6.0)
[2024-12-09 04:20] LABS: Anion Gap 12.2 (5-19); Blood Urea Nitrogen 15 mg/dL (6-20); Calcium 8.3 mg/dL (8.5-10.5); Carbon Dioxide 27 mmol/L (22-29); Chloride 104 mmol/L (98-107); Cholesterol 134 mg/dL (0-200); Creatinine Clr Calc Pharmacy 83.0318; Glucose 118 mg/dL (65-115); HDL Cholesterol 24 mg/dL (60-100); Osmolality Calculated 290 mOsm/kg (285-295); Potassium 4.2 mmol/L (3.5-5.1); Sodium 139 mmol/L (136-145); Triglycerides 161 mg/dL (0-150)
[2024-12-09 07:35] VITALS: BP 104/57; PULSE 66; RESP 15; TEMP 36.5; O2SAT 94
--- NOTE | 2024-12-09 09:38 | ECG_ITS ---
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 Measurements Intervals [place] Rate: 65 P: 70 [place]: 169 QRS: 74 QRSD: 104 T: 6 QT: 417 QTc: 436 Interpretive Statements SINUS RHYTHM Compared to ECG 12/08/2024 16:15:10 Incomplete right bundle-branch block no longer present Electronically Signed On 12-10-2024 17:47:02 CDT by Bo Sprague M.D. [email or web address] [id number]
--- NOTE | 2024-12-09 11:33 | PM.DCS ---
Discharge Providers Date of Admission: 12/08/24 13:34 Date of Discharge: December 09, 2024 Attending Provider at Admission: Demetrius Isidro MD Attending Provider at Discharge: Demetrius Isidro MD Primary Care Provider: Jhoana Dunn MD Diagnoses at Discharge Discharge Diagnosis 1. Hypomagnesemia: 2. Atrial fibrillation with rapid ventricular response: 3. Paroxysmal atrial fibrillation with rapid ventricular response: 4. Sleep apnea, unspecified type: 5. Diabetes: 6. Hypertension: Reason for Visit Reason for Visit: 145/160 HR feel like he is in Afib weakness Brief History: 54 year old male presenting with Afib with RVR Hospital Course Hospital Course Afib with RVR H/O paroxysmal afib - history of Afib, not on AC for past several years, reports no afib for about 6 years. - given metoprolol tartrate 5 mg IV Q20 minutes x2 doses yesterday - placed on amioadrone drip in ER, can stop prior to discharge - patient converted to NSR overnight - Chadsvac 2, will start eliquis 5 mg BID - reduce home aspirin to 81 mg daily - cont. metoprolol 25 mg daily - start flecainide 50 mg BID - cont. statin - fasting lipid panel with LDL at 24, in good range - echo done with normal EF, mild TR. Hypomagnesemia - 2g ordered, recheck in AM DMII - hold oral meds for now - SSI - A1c 6.2, well controlled - cont. home regimen on D/C H/O GINA - does not tolerate CPAP - consider options of follow up after discharge. Diet: PPx: eliquis Disposition - Discharge planning for today. Physical Exam Const: COMMON NORMALS: no acute distress, average body habitus, patient oriented x3 and healthy appearing HENMT: COMMON NORMALS: normocephalic and atraumatic HEAD & SCALP: normocephalic and atraumatic Eye: COMMON NORMALS: Equal, round and reactive pupils present and EOMs intact bilaterally PUPIL: Yes Equal, round and reactive pupils present Neck/C-Spine: COMMON NORMALS: no JVD Chest: COMMONS NORMALS: normal inspection of the chest and normal palpation of entire chest wall Resp: COMMON NORMALS: normal respiratory effort, No retractions and clear to auscultation bilaterally AUSCULTATION: clear to auscultation bilaterally Cardio: COMMON NORMALS: no JVD, regular rate and regular rhythm RATE: regular rate RHYTHM: regular rhythm GI: COMMON NORMALS: Soft to palpation, non-tender and no masses PALPATION: Yes Soft to palpation Extremity: COMMON NORMALS: normal to inspection, full ROM and no pedal edema Neuro: COMMON NORMALS: patient oriented x3 and CN's II-XII intact bilaterally Skin: COMMON NORMALS: no rashes or lesions noted, no wounds and turgor normal GENERAL SKIN EXAM: no rashes or lesions noted and turgor normal Discharge Data Studies Completed and Pending Completed Studies During Hospitalization Category Date Time Status XR chest 1V portable [id number] Stat Exams 12/08/24 10:54 Completed US echo complete [CV. echo complete* [id number]] Routine Ultrasound 12/08/24 13:15 Completed Radiology Impressions Chest X-Ray 12/08/24 10:54 Impression: Negative chest. Laboratory Results WBC 5.36 10^3/uL (3.29-11.43) 12/09/24 03:15 RBC 4.09 10^6/uL (3.85-5.65) 12/09/24 03:15 Hgb 12.00 g/dL (11.27-16.99) 12/09/24 03:15 Hct 37.1 % (37-53) 12/09/24 03:15 MCV 90.7 fl (82-101) 12/09/24 03:15 MCH 29.3 pg (27-33) 12/09/24 03:15 MCHC 32.3 g/dL (30-55) 12/09/24 03:15 RDW 13.6 % (12.1-15.1) 12/09/24 03:15 Plt Count 178 10^3/cmm (157-399) 12/09/24 03:15 MPV 11.5 fL (7.4-10.4) H 12/09/24 03:15 Neut % (Auto) 57.5 % 12/09/24 03:15 Lymph % (Auto) 29.7 % 12/09/24 03:15 [place] % (Auto) 9.1 % 12/09/24 03:15 Eos % (Auto) 2.8 % 12/09/24 03:15 Baso % (Auto) 0.7 % 12/09/24 03:15 Neut # (Auto) 3.08 10^3/uL (1.8-7.7) 12/09/24 03:15 Lymph # (Auto) 1.6 10^3/uL (0.8-4.8) 12/09/24 03:15 [place] # (Auto) 0.5 10^3/uL (0.2-0.9) 12/09/24 03:15 Eos # (Auto) 0.2 10^3/uL (0.0-0.8) 12/09/24 03:15 Baso # (Auto) 0.0 10^3/uL (0.0-0.1) 12/09/24 03:15 Nucleated RBC % (auto) 0 % 12/09/24 03:15 Nucleated RBCs # 0.0 /100WBC 12/09/24 03:15 Sodium 139 mmol/L (136-145) 12/09/24 03:15 Potassium 4.2 mmol/L (3.5-5.1) 12/09/24 03:15 Chloride 104 mmol/L (98-107) 12/09/24 03:15 Carbon Dioxide 27 mmol/L (22-29) 12/09/24 03:15 Anion Gap 12.2 (5-19) 12/09/24 03:15 BUN 15 mg/dL (6-20) 12/09/24 03:15 Creatinine 1.3 mg/dL (0.7-1.2) H 12/09/24 03:15 GFR Calculation 57.1 mL/min (90-130) L 12/09/24 03:15 Glucose 118 mg/dL (65-115) H 12/09/24 03:15 POC Glucose 123 mg/dL (70-110) H 12/09/24 11:18 Estimat Average Glucose 131 12/09/24 03:15 Hemoglobin A1c 6.2 % (4.0-6.0) H 12/09/24 03:15 Calculated Osmolality 290 mOsm/kg (285-295) 12/09/24 03:15 Lactic Acid 2.3 mmol/L (0.5-2.2) H 12/08/24 10:59 Lactic Acid (Sepsis) 2.3 mmol/L (0.5-2.2) H 12/08/24 14:01 Calcium 8.3 mg/dL (8.5-10.5) L 12/09/24 03:15 Phosphorus 2.9 mg/dL (2.5-4.5) 12/09/24 03:15 Magnesium 2.0 mg/dL (1.7-2.3) 12/09/24 03:15 Total Bilirubin 0.8 mg/dL (0.15-1.2) 12/08/24 10:59 AST 14 U/L (0-40) 12/08/24 10:59 ALT 16 U/L (0-41) 12/08/24 10:59 Alkaline Phosphatase 68 U/L (40-130) 12/08/24 10:59 Troponin T Baseline < 6 ng/L (0-15) 12/08/24 10:59 Troponin T 120 Minute < 6.0 ng/L (0-15) 12/08/24 12:10 Delta Troponin T 0 ABS# (0-10) 12/08/24 12:10 Troponin T Hi Sens 6Hr 7.97 ng/L (0-15) 12/08/24 17:27 Troponin T Hi Sens 6Hr Delta 1.05590 ng/L (0-12) 12/08/24 17:27 NT-Pro-B Natriuret Pep 184 pg/mL (0-125) H 12/08/24 10:59 Total Protein 7.1 g/dL (6.6-8.7) 12/08/24 10:59 Albumin 4.2 g/dL (3.5-5.2) 12/08/24 10:59 Globulin 2.9 g/dL (1.3-4.6) 12/08/24 10:59 Triglycerides 161 mg/dL (0-150) H 12/09/24 03:15 Cholesterol 134 mg/dL (0-200) 12/09/24 03:15 LDL Cholesterol, Calc 78 mg/dL (50-129) 12/09/24 03:15 HDL Cholesterol 24 mg/dL (60-100) L 12/09/24 03:15 LDL/HDL Ratio 3.25 RATIO (0.00-3.22) H 12/09/24 03:15 Cholesterol/HDL Ratio 5.58 mg/dL (1.0-5.00) H 12/09/24 03:15 TSH 1.33 uIU/mL (0.27-4.20) 12/08/24 10:59 Urine Color Yellow (Yellow) 12/08/24 13:40 Urine Appearance Clear (CLEAR) 12/08/24 13:40 Urine pH 5.0 (5-7) 12/08/24 13:40 Ur Specific [place] 1.009 (1.005-1.030) 12/08/24 13:40 Urine Protein Negative (Negative) 12/08/24 13:40 Urine Glucose (UA) Negative (Normal) 12/08/24 13:40 Urine Ketones Negative (Negative) 12/08/24 13:40 Urine Blood Negative (Negative) 12/08/24 13:40 Urine Nitrate Negative (Negative) 12/08/24 13:40 Urine Bilirubin Negative (Negative) 12/08/24 13:40 Urine Urobilinogen 0.2 mg/dL (Negative) 12/08/24 13:40 Ur Leukocyte Esterase Negative (Negative) 12/08/24 13:40 Amorphous Sediment Not Reportable 12/08/24 13:40 Ethyl Alcohol < 10 mg/dL (0-10) 12/08/24 10:59 Vitals Last Vital Signs Temp 97.7 F 12/09/24 07:35 Pulse 66 12/09/24 07:35 Resp 15 12/09/24 07:35 BP 104/57 12/09/24 07:35 Pulse Ox 94 12/09/24 07:35 O2 Del Method Room Air 12/09/24 07:35 Discharge Plan Discharge Patient Disposition: Home Condition: Stable Prescriptions: New Eliquis 5 mg Tablet 5 mg PO BID Qty: 60 2RF aspirin 81 mg capsule 81 mg PO DAILY Qty: 30 2RF flecainide 50 mg tablet 50 mg PO Q8H Qty: 60 2RF metoprolol succinate 25 mg tablet extended release 24 hr 25 mg PO DAILY Qty: 30 2RF Continued glipizide 5 mg tablet 5 mg PO BID@0800,1999 metformin 1,000 mg tablet 1,000 mg PO BID@0800,1999 [place] [place] See Rx Instructions .Route .MEDSUPPLY Qty: 1 0RF Rx Instructions: [place] directed [place] [place] with heel cups co-poly insoles with extra depth diabetic shoes See Rx Instructions .Route .MEDSUPPLY Qty: 1 0RF Rx Instructions: As directed by [facility] rosuvastatin 5 mg Tablet 5 mg PO DAILY PRN (Reason: cholesterol) Discontinued aspirin 325 mg tablet 325 mg PO QAM metoprolol succinate 50 mg Tablet Extended Release 24 Hr 25 mg PO DAILY Discharge Order = DC NOW: Discharge Order (Routine); Ordered 12/09/24 Ordered By: Demetrius Isidro Referrals: Jhoana Dunn MD [Primary Care Provider, Family Practice] Referral Note: Patient will need to call primary care to schedule follow up on Wednesday Discharge Diet: Usual diet Discharge Activity: Resume usual activity Patient Instructions: Opioid Safety, Patient Portal & Hi Instructions Discharge Attestations Time Spent in Discharge Care*: greater than 30 min Specific Discharge Activities: educating patient, educating and/or supporting family/caregiver, discussing with pcp/other providers, discussing with business case analyst/social workers/dc planners, documenting/other paperwork and evaluating patient/reviewing data Quality Metrics Clinical Quality Measures [ No reported AMI, CVA or VTE this stay] Coding Level of Care Code Acute Code for g Fwd Diagnoses Hypomagnesemia E83.42 Atrial fibrillation with rapid ventricular response I48.91 Paroxysmal atrial fibrillation with rapid ventricular response I48.0 Sleep apnea, unspecified type G47.30 Sleep apnea type: unspecified type Diabetes E11.9 Diabetes mellitus type: type 2 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
--- NOTE | 2024-12-09 12:44 | P.PN_ITS ---
Subjective 2 Subjective: Feeling better since conversion to NSR yesterday Vitals/I&O/Wt Last Vital Signs Temp 97.7 F 12/09/24 07:35 Pulse 66 12/09/24 07:35 Resp 15 12/09/24 07:35 BP 104/57 12/09/24 07:35 Pulse Ox 94 12/09/24 07:35 O2 Del Method Room Air 12/09/24 07:35 12/08/24 12/09/24 12/09/24 22:59 06:59 14:59 Intake Total 2990.316 / 3090.316 200 / 3290.316 240 / 240 Output Total 350 / 350 650 / 1000 Balance 2640.316 / 2740.316 -450 / 2290.316 240 / 240 Weight last 48 hrs Weight 230 lb 8 oz Weight 216 lb Weight 216 lb Physical Exam 2 Narrative: General: In no acute distress Neck: No jugular venous distention or carotid bruits Heart: Normal S1 and S2 with a regular rate and rhythm, no cardiac murmurs Lungs: Normal respiratory effort with no use of intercostal muscles, clear lungs sounds to auscultation Extremities: No lower extremity edema Neuro: Alert and oriented x 3 Data 12/09/24 03:15 12/09/24 03:15 Other data: echo 12/08/24: 1. Normal left ventricular size. Low normal left ventricular systolic function. Visually EF 50 to 55%. 2. No significant valvular abnormalities 3. Normal right ventricular size and systolic function A&P Assessment and plan 1. Hypomagnesemia: Repleted 2. Atrial fibrillation with rapid ventricular response: Converted to NSR with IV amio Stop amio Start flecainide 50mg bid Continue Metoprolol as Metoprolol XL 25mg daily Eliquis 5mg bid Outpatient exercise nuclear stress test Follow up with Applications Processor Dr. Hernandez in 3 weeks PDMP PDMP Reviewed: Not Reviewed Attestations 2 Medical Necessity Statement*: Can be discharged today Coding Level of Care Code 86465 Diagnoses Hypomagnesemia E83.42 Atrial fibrillation with rapid ventricular response I48.91
[2024-12-09 12:49] VITALS: BP 110/63; PULSE 81; RESP 15; TEMP 36.6; O2SAT 96
== END 2024-12-09 12:18 | disposition home or self-care (01) | DRG 310 ==
LOC: ER 13:15 → CSU 14:38
PROVIDERS: Admitting Provider Internal Medicine; Emergency Provider Physician Assistant; PCP Family Medicine; Visit Provider Internal Medicine
DX: I48.0 Paroxysmal atrial fibrillation (principal); E83.42 Hypomagnesemia; E11.9 Type 2 diabetes mellitus without complications; I10 Essential (primary) hypertension; G47.33 Obstructive sleep apnea (adult) (pediatric); F41.9 Anxiety disorder, unspecified; E78.5 Hyperlipidemia, unspecified; E86.0 Dehydration; Z79.01 Long term (current) use of anticoagulants; Z79.82 Long term (current) use of aspirin; Z79.84 Long term (current) use of oral hypoglycemic drugs; Z86.0100 Personal history of colon polyps, unspecified; Z91.199 Patient's noncompliance with other medical treatment and regimen due to unspecified reason; Z87.891 Personal history of nicotine dependence
CPT/HCPCS: 36415; 36416; 71045; 80048; 80053; 80061; 80307; 81003; 82962; 83036; 83605; 83735; 83880; 84100; 84443; 84484; 85025; 93005; 93306; 96365; 96367; 96375; 99285; 99291; A4222; J0283; J3475; J3490; J7030; J9999

== ENCOUNTER → 2025-02-14 09:01 | Outpatient (BNVA) | payer OTHER, SELFPAY | PROVIDERS: PCP Family Medicine; Visit Provider Physician Assistant | DX: M17.11 Unilateral primary osteoarthritis, right knee (principal) | CPT/HCPCS: 20610; 99213; J3301; J9999 ==

== ENCOUNTER → 2025-04-11 09:51 | Outpatient (BNVA) | payer OTHER, SELFPAY | PROVIDERS: PCP Family Medicine; Visit Provider Physician Assistant | DX: M17.11 Unilateral primary osteoarthritis, right knee (principal); T84.84XA Pain due to internal orthopedic prosthetic devices, implants and grafts, initial encounter; Z96.9 Presence of functional implant, unspecified | CPT/HCPCS: 99213 ==

== ENCOUNTER 2025-04-24 13:41 | Outpatient (CLI) | payer OTHER, SELFPAY ==
--- NOTE | 2025-04-24 13:45 | CT_ITS ---
WS: [id number] CT RIGHT KNEE, NONCONTRAST HISTORY: painful hardware of right knee, prior ACL repair. Technique: All CT scans at [facility] use at least one of these dose optimization techniques: automated exposure control; mA and/or kV adjustment per patient size (includes targeted exams where dose is matched to clinical indication); or iterative reconstruction. DLP: 526.06 mGy.cm COMPARISON: Radiograph 11/14/2024 Orthopedic screws in the lateral femoral condyle and in the mid proximal tibia from prior ACL repair. There are several bony fragments in the joint space. These are predominantly along the anterior joint space with the largest measuring 2.0 cm. Extensive bilateral hypertrophic osteophytes in all 3 comp artments. Subchondral cystic changes along the joint lines. No acute fractures or displacements. Joint spaces are all narrowed. Small suprapatellar joint effusion. CT/CT knee RT wo con* [id number] IMPRESSION: 1. Status post ACL repair. 2. Numerous osseous fragments along the anterior knee joint. The largest measu res 2.0 cm. 3. Moderate to severe tricompartment joint space narrowing with osteophytosis.
== END 2025-04-24 13:42 | disposition home or self-care (01) ==
LOC: RAD 13:42
PROVIDERS: PCP Family Medicine; Visit Provider Physician Assistant
DX: M17.11 Unilateral primary osteoarthritis, right knee (principal); T84.84XA Pain due to internal orthopedic prosthetic devices, implants and grafts, initial encounter; X58.XXXA Exposure to other specified factors, initial encounter; Z96.9 Presence of functional implant, unspecified
CPT/HCPCS: 73700